=== PATIENT | female | born 1960 | race Caucasian/White ===

== ENCOUNTER 2022-03-30 12:43 | Outpatient (CLI) | payer BC, SELFPAY ==
--- NOTE | 2022-03-30 13:00 | CRLHL7_ITS ---
For Patients: As a result of the Century Cures Act, medical imaging exams and procedure reports are released immediately into your electronic medical record. You may view this report before your referring provider. If you have questions, please contact your health care provider. Indication: Cough Technique: Noncontrast CT chest Please note that all CT scans at this facility use dose modulation, iterative reconstruction, and/or weight-based dosing when appropriate to reduce radiation dose to as low as reasonably achievable. Comparison: None Findings: No infiltrate or edema. No suspicious nodule or pneumothorax. Mild areas of atelectasis at both lung bases. No pleural effusion or pericardial effusion. No small airway disease. No fibrosis. No adenopathy. No fracture. Gallbladder absent. Mild hepatic steatosis. Small hiatal hernia. Mild vascular calcifications. Thoracic inlet normal. Normal breast tissue. No fracture. Sclerosis involving the anterior T11 vertebral body consistent with bone island. Impression: No evidence of small airway disease or fibrosis. Please note that all CT scans at this facility use dose modulation, iterative reconstruction, and/or weight-based dosing when appropriate to reduce radiation dose to as low as reasonably achievable. Dictated by Christopher Lackey MD @ 03/30/2022 1:15:12 PM (Electronically Signed)
== END 2022-03-30 12:44 | disposition home or self-care (01) ==
PROVIDERS: PCP Family Medicine; Visit Provider Internal Medicine
DX: R05.9 Cough, unspecified (principal)
CPT/HCPCS: 71250

== ENCOUNTER 2022-04-27 14:11 | Outpatient (CLI) | payer BC, SELFPAY ==
[2022-04-27 22:09] LABS: Albumin* 4.7 g/dL (3.3-5.0); Chloride* 97 mmol/L (96-114); Potassium* 3.9 mmol/L (3.6-5.1); Sodium* 137 mmol/L (135-149)
[2022-04-27 22:11] LABS: Cholesterol* 175 mg/dL (90-199); Creatinine* 0.7 mg/dL (0.5-1.5); Estimated Glomerular Filt Rate 98 ml/min
[2022-04-27 22:12] LABS: Alanine Aminotransferase* 31 U/L (4-35); Alkaline Phosphatase* 91 U/L (40-150); Aspartate Amino Transferase* 34 U/L (12-35); Bilirubin Total* 0.5 mg/dL (0.1-1.5); Blood Urea Nitrogen* 17 mg/dL (7-30); Carbon Dioxide* 30 mmol/L (20-32); Glucose* 148 mg/dL (60-115); Total Protein* 7.2 g/dL (6.0-8.3); Triglycerides* 201 mg/dL (40-149)
[2022-04-27 22:13] LABS: Calcium* 10.7 mg/dL (8.4-10.6); HDL Cholesterol* 53 mg/dL (>=50); LDL Cholesterol Calculated 82 mg/dL (<100)
[2022-04-27 22:28] LABS: Vitamin D 25 Hydroxy* 15 ng/mL (30-80)
[2022-04-27 22:59] LABS: Hepatitis C Virus Antibody* Negative (Negative)
== END 2022-04-27 14:12 | disposition home or self-care (01) ==
PROVIDERS: PCP Family Medicine; Visit Provider Family Medicine
DX: Q18.8 Other specified congenital malformations of face and neck (principal); R53.83 Other fatigue; Z11.59 Encounter for screening for other viral diseases; I10 Essential (primary) hypertension; E55.9 Vitamin D deficiency, unspecified; Z13.6 Encounter for screening for cardiovascular disorders
CPT/HCPCS: 80053; 80061; 82306; 84443; 86803

== ENCOUNTER 2022-06-25 22:05 | Emergency (ER) | payer BC, SELFPAY ==
[2022-06-25 22:16] VITALS: BP 184/84; PULSE 68; RESP 18; TEMP 36.7; O2SAT 99; BMI 35.4
--- NOTE | 2022-06-25 22:36 | ED_ITS ---
HPI - General Adult General Date Seen: 06/25/22 <Shayna Cornejo MD - Last Filed: 06/28/22 11:20> Chief complaint: Chest Pain <Shayna Cornejo MD - Last Filed: 06/28/22 11:20> Stated complaint: Chest pain <Shayna Cornejo MD - Last Filed: 06/28/22 11:20> Time Seen by Provider: 06/25/22 22:16 <Shayna Cornejo MD - Last Filed: 06/28/22 11:20> Source: patient, family and RN notes reviewed <Shayna Cornejo MD - Last Filed: 06/28/22 11:20> Mode of arrival: ambulatory <Shayna Cornejo MD - Last Filed: 06/28/22 11:20> Limitations: no limitations <Shayna Cornejo MD - Last Filed: 06/28/22 11:20> History of Present Illness HPI narrative: Patient is a 62-year-old woman who comes in for evaluation of chest pain. She says that a few weeks ago she had a couple of episodes of left-sided chest pain which she felt were fairly minor and self limited. Tonight, after dinner, she had an episode of pain which was more intense and radiated into the left arm. She describes it as sharp and moderate to severe in intensity. It was not pleuritic. It lasted about an hour and then resolved on its own. She does note that she had a couple of brief episodes of pain after arriving here which only lasted a minute or 2. She does not describe any nausea, vomiting, diaphoresis, palpitations, lightheadedness or fainting. She does not feel that the pain has been positional or exertional. She has not had any abdominal pain. Denies any unusual leg swelling or pain. She has not had any fever or cough. No recent upper respiratory illness. Had COVID in July of 2020. Her notes that she has a history of hypertension, and that when the pain started to radiate into the left arm they became concerned. She and her quit smoking last year when they got COVID. She does not drink with any frequency. Her mother had cardiomyopathy, dad had CHF. She denies early coronary artery disease in either, as far she is aware, although she notes that they ?kept that stuff away from her?. <Shayna Cornejo MD - Last Filed: 06/28/22 11:20> Related Data Home medications: Home Medications Medication Instructions Recorded Confirmed acetaminophen 325 mg tablet 650 mg PO Q4H PRN 01/27/22 06/25/22 fluoxetine 20 mg tablet 60 mg PO DAILY 01/27/22 06/25/22 omeprazole 40 mg capsule,delayed 40 mg PO DAILY 01/27/22 06/25/22 release rosuvastatin 10 mg tablet 10 mg PO .Bedtime 01/27/22 06/25/22 coenzyme Q10 30 mg capsule (Co 30 mg PO QDAY 01/29/22 06/25/22 Q-10) ibuprofen 200 mg capsule 800 mg PO .hs PRN 01/29/22 06/25/22 multivitamin 1 tab PO QAM 01/29/22 06/25/22 albuterol sulfate 90 mcg/actuation 2 inh inhalation Q4-6H PRN 04/27/22 06/25/22 aerosol inhaler fluticasone furoate 200 1 inh inhalation DAILY 06/25/22 06/25/22 mcg-vilanterol 25 mcg/dose inhalation powder Previous Rx's Medication Instructions Recorded albuterol sulfate 2.5 mg/3 mL 2.5 mg (3 mL) inhalation Q4H PRN 04/27/22 (0.083 %) solution for nebulization shortness of breath or wheezing #90 mL bupropion HCl 150 mg 24 hr tablet, 150 mg PO QAM #30 tabs 04/27/22 extended release (Wellbutrin XL) lisinopril 20 mg tablet 20 mg PO QDAY #30 tabs 04/27/22 cholecalciferol (vitamin D3) 1,250 1,250 mcg PO QWEEK #12 caps 04/28/22 mcg (50,000 unit) capsule <Shayna Cornejo MD - Last Filed: 06/28/22 11:20> Allergies/adverse reactions: Allergies Allergy/AdvReac Type Severity Reaction Status Date / Time azithromycin Allergy Intermediate Light Verified 06/25/22 23:58 Headed hydromorphone Allergy Intermediate Itchy Verified 06/25/22 23:58 lactose Allergy Intermediate Diarrhea Verified 06/25/22 23:58 zolpidem Allergy Intermediate Fatigue & Verified 06/25/22 23:58 Vertigo Cephalosporins Allergy Mild Nausea/Vomi Verified 06/25/22 23:58 ting codeine Allergy Mild N-V Verified 06/25/22 23:58 penicillin V Allergy Mild Hives Verified 06/25/22 23:58 nitrofurantoin Allergy Unknown itchy? Verified 06/25/22 23:58 atorvastatin AdvReac Mild myalgia Verified 06/25/22 23:58 <Shayna Cornejo MD - Last Filed: 06/28/22 11:20> Review of Systems Status of ROS: Reports: 10 or more systems reviewed and unremarkable except as noted in History and below <Shayna Cornejo MD - Last Filed: 06/28/22 11:20> [facility] Medical History: Medical History (Updated 06/26/22 @ 00:39 by Shayna Cornejo MD) Anxiety COPD (chronic obstructive pulmonary disease) GERD (gastroesophageal reflux disease) History of open sigmoidectomy (08/23/12) Hypertension Mild intermittent asthma (07/24/11) CLAUDIA (obstructive sleep apnea) Osteoarthritis 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) <Shayna Cornejo MD - Last Filed: 06/28/22 11:20> Surgical History: Surgical History H/O laparoscopy (03/10/12) History of carpal tunnel surgery (~1989) History of hysterectomy (05/20/06) History of laparoscopic cholecystectomy (03/10/12) Status post appendectomy (~02/2012) Status post tonsillectomy <Shayna Cornejo MD - Last Filed: 06/28/22 11:20> Family History: Family History Brother Aneurysm Lung cancer Maternal Grandmother Colorectal cancer Father CHF (congestive heart failure) Coronary artery disease Diabetes Mother Coronary artery disease Stroke Depression Diabetes High blood pressure Rheumatic fever <Shayna Cornejo MD - Last Filed: 06/28/22 11:20> Social History: Social History Narrative: Does not drink alcohol Does not use illicit drugs Smoker- 0.5 packs per day Smoking Status: Former smoker Do you use any of these nicotine containing products: None Second hand tobacco smoke exposure: Yes How often do you have a drink containing alcohol: monthly or less AUDIT-C Alcohol total score: 1 Non-prescribed substance use: denies use <Shayna Cornejo MD - Last Filed: 06/28/22 11:20> Exam Narrative: Exam Narrative: Vital signs as noted above. In general, an alert, well-appearing patient. Head: Normocephalic, atraumatic. Eyes: Pupils are equal reactive. Extraocular movements are full. Conjunctivae are normal. ENT: Mucous membranes are moist. Throat is normal. Neck: Supple without lymphadenopathy. Heart: Regular rate and rhythm. No murmur or rub. Chest wall is nontender. Lungs: Clear bilaterally. No increased work of breathing, crackles or wheezes. Abdomen: Soft and nontender. No organomegaly. Extremities: Well perfused. No edema. No calf tenderness. Pulses intact. Neurologic: Patient is alert and oriented to person and place. Speech is fluent. Face is symmetric. Moves all extremities equally. Affect: Normal. Skin: Warm and dry. Well perfused. <Shayna Cornejo MD - Last Filed: 06/28/22 11:20> Const: Vital Signs, click to edit/add: Vital Signs - 24 hr 06/25/22 22:16 06/25/22 22:53 06/25/22 23:01 Temperature 98.0 F Pulse Rate 62 Pulse Rate [Right Pulse Oximeter] 68 Respiratory Rate 18 18 Blood Pressure 138/72 Blood Pressure [Ri ght Upper Arm] 184/84 H Pulse Oximetry 99 98 95 Oxygen Delivery Me thod Room Air 06/25/22 23:31 06/25/22 23:59 06/26/22 00:01 Temperature Pulse Rate 56 L 60 60 Pulse Rate [Right Pulse Oximeter] Respiratory Rate 18 18 18 Blood Pressure 142/74 H 155/84 H 149/93 H Blood Pressure [Ri ght Upper Arm] Pulse Oximetry 95 92 93 Oxygen Delivery Me thod 06/26/22 00:34 Temperature Pulse Rate 61 Pulse Rate [Right Pulse Oximeter] Respiratory Rate 16 Blood Pressure 152/78 H Blood Pressure [Ri ght Upper Arm] Pulse Oximetry 94 Oxygen Delivery Me thod <Shayna Cornejo MD - Last Filed: 06/28/22 11:20> Vital Signs, click to edit/add: Vital Signs - 24 hr 06/25/22 22:16 06/25/22 22:53 06/25/22 23:01 Temperature 98.0 F Pulse Rate 62 Pulse Rate [Right Pulse Oximeter] 68 Respiratory Rate 18 18 Blood Pressure 138/72 Blood Pressure [Ri ght Upper Arm] 184/84 H Pulse Oximetry 99 98 95 Oxygen Delivery Me thod Room Air 06/25/22 23:31 06/25/22 23:59 06/26/22 00:01 Temperature Pulse Rate 56 L 60 60 Pulse Rate [Right Pulse Oximeter] Respiratory Rate 18 18 18 Blood Pressure 142/74 H 155/84 H 149/93 H Blood Pressure [Ri ght Upper Arm] Pulse Oximetry 95 92 93 Oxygen Delivery Me thod 06/26/22 00:34 Temperature Pulse Rate 61 Pulse Rate [Right Pulse Oximeter] Respiratory Rate 16 Blood Pressure 152/78 H Blood Pressure [Ri ght Upper Arm] Pulse Oximetry 94 Oxygen Delivery Me thod <Robby Banerjee MD - Last Filed: 06/26/22 01:21> Documenting provider has reviewed patient's vital signs: yes <Shayna Cornejo MD - Last Filed: 06/28/22 11:20> Course Course Hospital Course: On arrival, patient had an EKG. There is a fair amount of baseline artifact but by my review this shows a sinus bradycardia, ventricular rate of 59 beats per minute, and no acute ST segment changes. T-waves laterally are a bit hard to discern but maybe biphasic. Following my initial evaluation, I have ordered cardiac monitoring and oximetry, initial troponin as well as other labs. I am waiting on a D-dimer prior to deciding on chest imaging. Overall, symptoms are a little atypical for angina, given that they have not followed any kind of exertional pattern. Nonetheless, she is 62, has a history of hypertension and high cholesterol. Have discussed that with serial troponins we can rule out acute coronary syndrome, but further testing would be needed to rule out coronary artery disease as a contributor to her symptoms. Assuming her parents did not have early coronary artery disease, her heart score is 2, placing her in the low risk category. I would characterize her history as slightly suspicious. Other considerations would include pulmonary embolism, chest wall pain, gastroesophageal reflux, esophageal spasm, pneumothorax, aortic dissection, pneumonia, among others. <Shayna Cornejo MD - Last Filed: 06/28/22 11:20> Reevaluation(s) Reevaluation #1: Repeat troponin is negative, patient remains pain-free and is stable for discharge. <Robby Banerjee MD - Last Filed: 06/26/22 01:21> Time: 01:20 <Robby Banerjee MD - Last Filed: 06/26/22 01:21> Vital Signs Vital signs: Initial Vital Signs Temperature 98.0 F 06/25/22 22:16 Temperature Source Temporal Artery Scan 06/25/22 22:16 Pulse Rate 68 06/25/22 22:16 Respiratory Rate 18 06/25/22 22:16 Blood Pressure 184/84 H 06/25/22 22:16 Blood Pressure Mean 117 06/25/22 22:16 Blood Pressure Position Sitting 06/25/22 22:16 Pulse Oximetry 99 06/25/22 22:16 Oxygen Delivery Method 06/25/22 22:16 Vital Signs Temperature 98.0 F 06/25/22 22:16 Pulse Rate 68 06/25/22 22:16 Respiratory Rate 18 06/25/22 22:16 Blood Pressure 184/84 H 06/25/22 22:16 Pulse Oximetry 99 06/25/22 22:16 Oxygen Delivery Method 06/25/22 22:16 Temperature 98.0 F 06/26/22 01:26 Pulse Rate 68 06/26/22 01:26 Respiratory Rate 18 06/26/22 01:26 Blood Pressure 184/84 H 06/26/22 01:26 Pulse Oximetry 94 06/26/22 01:05 Oxygen Delivery Method 06/25/22 22:16 <Shayna Cornejo MD - Last Filed: 06/28/22 11:20> Initial Vital Signs Temperature 98.0 F 06/25/22 22:16 Temperature Source Temporal Artery Scan 06/25/22 22:16 Pulse Rate 68 06/25/22 22:16 Respiratory Rate 18 06/25/22 22:16 Blood Pressure 184/84 H 06/25/22 22:16 Blood Pressure Mean 117 06/25/22 22:16 Blood Pressure Position Sitting 06/25/22 22:16 Pulse Oximetry 99 06/25/22 22:16 Oxygen Delivery Method 06/25/22 22:16 Vital Signs Temperature 98.0 F 06/25/22 22:16 Pulse Rate 68 06/25/22 22:16 Respiratory Rate 18 06/25/22 22:16 Blood Pressure 184/84 H 06/25/22 22:16 Pulse Oximetry 99 06/25/22 22:16 Oxygen Delivery Method 06/25/22 22:16 Temperature 98.0 F 06/26/22 01:26 Pulse Rate 68 06/26/22 01:26 Respiratory Rate 18 06/26/22 01:26 Blood Pressure 184/84 H 06/26/22 01:26 Pulse Oximetry 94 06/26/22 01:05 Oxygen Delivery Method 06/25/22 22:16 <Robby Banerjee MD - Last Filed: 06/26/22 01:21> Medical Decision Making Lab Data Labs: Lab Results 06/25/22 06/25/22 06/25/22 Range/Units 23:00 23:00 23:00 WBC 6.59 (4.50-11.00) K/uL RBC 4.52 (4.00-5.20) m/uL Hgb 13.1 (12.0-16.0) gm/dL Hct 40.6 (33.0-51.0) % MCV 90 (80-100) fL MCH 29 (26-34) pg MCHC 32 (32-36) gm/dL RDW Coeff of Alee 13.5 (11.5-15.5) % Plt Count 284 (140-440) K/uL Neut % (Auto) 48.3 (42.0-72.0) % Lymph % (Auto) 38.1 (20-44) % Morrison % (Auto) 10.0 (0.0-11.0) % Eos % (Auto) 3.0 (0.0-7.0) % Baso % (Auto) 0.3 (0.0-3.0) % Neut # (Auto) 3.18 (1.7-7.0) K/uL Lymph # (Auto) 2.51 (0.90-2.90) K/uL Morrison # (Auto) 0.70 (0.00-0.90) K/UL Eos # (Auto) 0.20 (0.00-0.50) K/uL Baso # (Auto) 0.02 (0.00-0.30) K/uL D-Dimer Quant (PE/DVT) 0.43 (0.00-0.50) ug/ml Sodium 137 (135-149) mmol/L Potassium 3.9 (3.6-5.1) mmol/L Chloride 103 (96-114) mmol/L Carbon Dioxide 29 (20-32) mmol/L BUN 16 (7-30) mg/dL Creatinine 0.6 (0.5-1.5) mg/dL Estimated Creat Clear 57.45 Estimated GFR 102 ml/min Glucose 124 H (60-115) mg/dL Calcium 9.2 (8.4-10.6) mg/dL C-Reactive Protein < 0.5 L (0.5-1.0) mg/dL NT-Pro-B Natriuret Pep 96 pg/mL POC Troponin I (0.01-0.04) ng/ml 06/25/22 06/26/22 Range/Units 23:00 01:00 WBC (4.50-11.00) K/uL RBC (4.00-5.20) m/uL Hgb (12.0-16.0) gm/dL Hct (33.0-51.0) % MCV (80-100) fL MCH (26-34) pg MCHC (32-36) gm/dL RDW Coeff of Alee (11.5-15.5) % Plt Count (140-440) K/uL Neut % (Auto) (42.0-72.0) % Lymph % (Auto) (20-44) % Morrison % (Auto) (0.0-11.0) % Eos % (Auto) (0.0-7.0) % Baso % (Auto) (0.0-3.0) % Neut # (Auto) (1.7-7.0) K/uL Lymph # (Auto) (0.90-2.90) K/uL Morrison # (Auto) (0.00-0.90) K/UL Eos # (Auto) (0.00-0.50) K/uL Baso # (Auto) (0.00-0.30) K/uL D-Dimer Quant (PE/DVT) (0.00-0.50) ug/ml Sodium (135-149) mmol/L Potassium (3.6-5.1) mmol/L Chloride (96-114) mmol/L Carbon Dioxide (20-32) mmol/L BUN (7-30) mg/dL Creatinine (0.5-1.5) mg/dL Estimated Creat Clear Estimated GFR ml/min Glucose (60-115) mg/dL Calcium (8.4-10.6) mg/dL C-Reactive Protein (0.5-1.0) mg/dL NT-Pro-B Natriuret Pep pg/mL POC Troponin I 0.00 L 0.00 L (0.01-0.04) ng/ml <Shayna Cornejo MD - Last Filed: 06/28/22 11:20> Lab Results 06/25/22 06/25/22 06/25/22 Range/Units 23:00 23:00 23:00 WBC 6.59 (4.50-11.00) K/uL RBC 4.52 (4.00-5.20) m/uL Hgb 13.1 (12.0-16.0) gm/dL Hct 40.6 (33.0-51.0) % MCV 90 (80-100) fL MCH 29 (26-34) pg MCHC 32 (32-36) gm/dL RDW Coeff of Alee 13.5 (11.5-15.5) % Plt Count 284 (140-440) K/uL Neut % (Auto) 48.3 (42.0-72.0) % Lymph % (Auto) 38.1 (20-44) % Morrison % (Auto) 10.0 (0.0-11.0) % Eos % (Auto) 3.0 (0.0-7.0) % Baso % (Auto) 0.3 (0.0-3.0) % Neut # (Auto) 3.18 (1.7-7.0) K/uL Lymph # (Auto) 2.51 (0.90-2.90) K/uL Morrison # (Auto) 0.70 (0.00-0.90) K/UL Eos # (Auto) 0.20 (0.00-0.50) K/uL Baso # (Auto) 0.02 (0.00-0.30) K/uL D-Dimer Quant (PE/DVT) 0.43 (0.00-0.50) ug/ml Sodium 137 (135-149) mmol/L Potassium 3.9 (3.6-5.1) mmol/L Chloride 103 (96-114) mmol/L Carbon Dioxide 29 (20-32) mmol/L BUN 16 (7-30) mg/dL Creatinine 0.6 (0.5-1.5) mg/dL Estimated Creat Clear 57.45 Estimated GFR 102 ml/min Glucose 124 H (60-115) mg/dL Calcium 9.2 (8.4-10.6) mg/dL C-Reactive Protein < 0.5 L (0.5-1.0) mg/dL NT-Pro-B Natriuret Pep 96 pg/mL POC Troponin I (0.01-0.04) ng/ml 06/25/22 06/26/22 Range/Units 23:00 01:00 WBC (4.50-11.00) K/uL RBC (4.00-5.20) m/uL Hgb (12.0-16.0) gm/dL Hct (33.0-51.0) % MCV (80-100) fL MCH (26-34) pg MCHC (32-36) gm/dL RDW Coeff of Alee (11.5-15.5) % Plt Count (140-440) K/uL Neut % (Auto) (42.0-72.0) % Lymph % (Auto) (20-44) % Morrison % (Auto) (0.0-11.0) % Eos % (Auto) (0.0-7.0) % Baso % (Auto) (0.0-3.0) % Neut # (Auto) (1.7-7.0) K/uL Lymph # (Auto) (0.90-2.90) K/uL Morrison # (Auto) (0.00-0.90) K/UL Eos # (Auto) (0.00-0.50) K/uL Baso # (Auto) (0.00-0.30) K/uL D-Dimer Quant (PE/DVT) (0.00-0.50) ug/ml Sodium (135-149) mmol/L Potassium (3.6-5.1) mmol/L Chloride (96-114) mmol/L Carbon Dioxide (20-32) mmol/L BUN (7-30) mg/dL Creatinine (0.5-1.5) mg/dL Estimated Creat Clear Estimated GFR ml/min Glucose (60-115) mg/dL Calcium (8.4-10.6) mg/dL C-Reactive Protein (0.5-1.0) mg/dL NT-Pro-B Natriuret Pep pg/mL POC Troponin I 0.00 L 0.00 L (0.01-0.04) ng/ml <Robby Banerjee MD - Last Filed: 06/26/22 01:21> Discharge Plan Discharge Clinical Impression: Chest pain <Shayna Cornejo MD - Last Filed: 06/28/22 11:20> Patient Disposition: Home, Self-Care <Shayna Cornejo MD - Last Filed: 06/28/22 11:20> Condition: Stable <Shayna Cornejo MD - Last Filed: 06/28/22 11:20> Instructions: Chest Pain (DC) <Shayna Cornejo MD - Last Filed: 06/28/22 11:20> Additional Instructions: All of the test that we talked about, including troponin, D-dimer, chest x-ray, are reassuring tonight. There is no evidence of heart attack or blood clot. I would recommend follow-up next week with your primary doctor to discuss further testing such as a stress test. If in the meantime you have severe, uncontrolled pain, significant shortness of breath, new symptoms such as fever they return to the emergency department. Avoid strenuous activity in the meantime. <Shayna Cornejo MD - Last Filed: 06/28/22 11:20> Prescriptions: No Action albuterol sulfate 2.5 mg /3 mL (0.083 %) solution for nebulization 2.5 mg inhalation Q4H PRN (Reason: shortness of breath or wheezing) Qty: 90 2RF bupropion HCl [Wellbutrin XL] 150 mg tablet extended release 24 hr 150 mg PO QAM Qty: 30 12RF lisinopril 20 mg tablet 20 mg PO QDAY Qty: 30 12RF acetaminophen 325 mg tablet 650 mg PO Q4H PRN Rx Instructions: NO MORE THAN 4000 MG/DAY rosuvastatin 10 mg tablet 10 mg PO .Bedtime fluoxetine 20 mg tablet 60 mg PO DAILY omeprazole 40 mg capsule,delayed release(DR/EC) 40 mg PO DAILY coenzyme Q10 [Co Q-10] 30 mg capsule 30 mg PO QDAY multivitamin Tablet 1 tab PO QAM ibuprofen 200 mg capsule 800 mg PO .hs PRN albuterol sulfate 90 mcg/actuation HFA aerosol inhaler 2 inh inhalation Q4-6H PRN fluticasone furoate-vilanterol 200-25 mcg/dose blister with device 1 inh INHALATION DAILY Label Comments: INHALE ONE PUFF ONCE DAILY AT THE SAME TIME EACH DAY cholecalciferol (vitamin D3) 1,250 mcg (50,000 unit) capsule 1,250 mcg PO QWEEK Qty: 12 0RF <Shayna Cornejo MD - Last Filed: 06/28/22 11:20> Follow Up/Referrals: Coby Dobbins MD [Primary Care Provider] - <Shayna Cornejo MD - Last Filed: 06/28/22 11:20> Stand Alone Forms: [place] [employer] Info Instructions <Shayna Cornejo MD - Last Filed: 06/28/22 11:20>
[2022-06-25 22:53] VITALS: O2SAT 98
[2022-06-25 23:01] VITALS: BP 138/72; PULSE 62; RESP 18; O2SAT 95
[2022-06-25 23:08] LABS: Basophils Absolute Auto 0.02 K/uL (0.00-0.30); Basophils Percent Auto 0.3 % (0.0-3.0); Hematocrit 40.6 % (33.0-51.0); Hemoglobin* 13.1 gm/dL (12.0-16.0); Immature Granulocytes Abs Auto 0.02 K/uL (0.00-0.30); Immature Granulocytes Pct Auto 0.3 %; Lymphocytes Absolute Auto 2.51 K/uL (0.90-2.90); Lymphocytes Percent Auto 38.1 % (20-44); Mean Corpuscular HGB Conc 32 gm/dL (32-36); Mean Corpuscular Hemoglobin 29 pg (26-34); Mean Corpuscular Volume 90 fL (80-100); Neutrophils Absolute Auto 3.18 K/uL (1.7-7.0); Neutrophils Percent Auto 48.3 % (42.0-72.0); Platelet Count* 284 K/uL (140-440); RDW Coefficient of Variation % 13.5 % (11.5-15.5); Red Blood Count 4.52 m/uL (4.00-5.20); White Blood Count* 6.59 K/uL (4.50-11.00)
[2022-06-25 23:09] LABS: Slide Review Reflex No
[2022-06-25 23:20] LABS: Chloride* 103 mmol/L (96-114)
[2022-06-25 23:21] LABS: Potassium* 3.9 mmol/L (3.6-5.1); Sodium* 137 mmol/L (135-149)
[2022-06-25 23:23] LABS: Creatinine* 0.6 mg/dL (0.5-1.5); Est. Creatinine Clearance* 57.45; Estimated Glomerular Filt Rate 102 ml/min
[2022-06-25 23:24] LABS: Blood Urea Nitrogen* 16 mg/dL (7-30); Calcium* 9.2 mg/dL (8.4-10.6); Carbon Dioxide* 29 mmol/L (20-32); Glucose* 124 mg/dL (60-115)
[2022-06-25 23:29] LABS: C Reactive Protein* < 0.5 mg/dL (0.5-1.0)
[2022-06-25 23:31] VITALS: BP 142/74; PULSE 56; RESP 18; O2SAT 95
[2022-06-25 23:33] LABS: D Dimer Quantitative* 0.43 ug/ml (0.00-0.50)
[2022-06-25 23:57] LABS: NT Pro B Type NatriureticPept* 96 pg/mL
[2022-06-25 23:59] VITALS: BP 155/84; PULSE 60; RESP 18; O2SAT 92
[2022-06-26 00:01] VITALS: BP 149/93; PULSE 60; RESP 18; O2SAT 93
--- NOTE | 2022-06-26 00:21 | CRLHL7_ITS ---
For Patients: As a result of the Cures Act, medical imaging exams and procedure reports are released immediately into your electronic medical record. You may view this report before your referring provider. If you have questions, please contact your health care provider. INDICATION: Chest pain TECHNIQUE: Chest radiograph 2 views COMPARISON: 03/30/2022, 08/20/2016 FINDINGS: Mediastinum: The mediastinum is normal in appearance. The cardiac silhouette is at upper limits of normal in size. Lung: Minimal left basilar discoid atelectasis is seen. The right lateral costophrenic sulcus is excluded. No pneumothorax is identified. Bone and Soft tissue: Unremarkable for age. IMPRESSION: 1. Minimal left basilar discoid atelectasis is seen. Dictated by Orlando Vences MD @ 06/26/2022 12:41:52 AM Dictated by: Orlando Vences MD @ 06/26/2022 00:41:56 (Electronically Signed)
[2022-06-26 00:34] VITALS: BP 152/78; PULSE 61; RESP 16; O2SAT 94
[2022-06-26 01:05] VITALS: BP 142/91; PULSE 57; RESP 18; O2SAT 94
[2022-06-26 01:26] VITALS: BP 184/84; PULSE 68; RESP 18; TEMP 36.7
== END 2022-06-26 01:27 | disposition home or self-care (01) ==
PROVIDERS: Emergency Medicine; Emergency Provider Family Medicine; PCP Family Medicine
DX: R07.9 Chest pain, unspecified (principal)
CPT/HCPCS: 36415; 71046; 80048; 83880; 84484; 85025; 85379; 86140; 93005; 94761; 99284; 99285

== ENCOUNTER 2022-08-18 12:38 | Outpatient (CLI) | payer BC, SELFPAY ==
[2022-08-18 14:06] VITALS: BP 147/77; PULSE 98; RESP 18
[2022-08-18] MEDS: DOBUTamine 250 MG in 5 % DEXTROSE 250 ML 230 ML 10 MG IVPB (14:10)
[2022-08-18] MEDS: ATROPINE 1 MG/10 ML SYRINGE IVP (14:12)
--- NOTE | 2022-08-18 14:29 | W.PM.STED ---
Stress Test Note Date Date of test: 08/18/22 Providers Primary care provider: Shayna Feliciano Stress test physician: Uri Goins Stress Test Note Stress test ordered: Dobutamine Echo Indication for test: Chest pain Stress test medicine: Dobutamine Results discussion: Here 62-year-old female presents here for a dobutamine echo, indication is chest pain, cardiac stress test medical history port is reviewed, informed consent risks benefits side effects we discussed with the patient, pretest EKG shows normal sinus rhythm with a heart rate of 63 and a BP of 153 on 87[address] No acute ST wave changes are noted. Occasional PVCs. Standard up protocol using dobutamine and atropine was use, dobutamine was used up to a maximum of 40 mcg, and atropine 0.5 mg was used, this resulted in a good test, with target heart rate and blood pressure obtain. Overall she felt no chest pain no shortness of breath, she recovered normally in the recovery period, her maximum heart rate was 142, which is 105% of the target, with a maximum blood pressure 177/68, no acute ST wave changes suggestive of ischemia is noted, there is no dysrhythmias increased frequency of PVCs was noted. Impression: Negative electrographic portion of dobutamine echo Follow up suggested: Await echo images these will be read by Cardiology, clinical correlation with these will be needed, patient left this testing facility in excellent condition.
== END 2022-08-18 14:13 | disposition home or self-care (01) ==
LOC: STRESS 12:39
PROVIDERS: PCP Family Medicine; Visit Provider Family Medicine
DX: R07.9 Chest pain, unspecified (principal); I10 Essential (primary) hypertension; E78.5 Hyperlipidemia, unspecified; R73.03 Prediabetes
CPT/HCPCS: 93016; 93325; 93351; J0461; J1250; J7050

== ENCOUNTER 2023-07-17 14:26 | Emergency (ER) | payer BC, SELFPAY ==
[2023-07-17 14:32] VITALS: BP 161/84; PULSE 60; RESP 18; TEMP 36.8; O2SAT 95
--- NOTE | 2023-07-17 14:57 | ED.GENADULT ---
HPI - General Adult General Chief complaint: Headache/Migraine Stated complaint: Pain and swelling back of neck-cyst or gland Time Seen by Provider: 07/17/23 14:34 History of Present Illness HPI narrative: [age] year white female presents with some tenderness behind her right ear she really has not noticed a mass but she thinks that might be causing some her to have a mild headache in that area. She has no fever chills no systemic signs of illness no trauma. Said some neck stiffness in the past. Related Data Home Medications Medication Instructions Recorded Confirmed acetaminophen 325 mg tablet 650 mg PO Q4H PRN 01/27/22 07/17/23 coenzyme Q10 30 mg capsule (Co 30 mg PO QDAY 01/29/22 07/17/23 Q-10) ibuprofen 200 mg capsule 800 mg PO .hs PRN 01/29/22 05/11/23 multivitamin 1 tab PO QAM 01/29/22 07/17/23 fluticasone furoate 200 1 inh inhalation DAILY 06/25/22 07/17/23 mcg-vilanterol 25 mcg/dose inhalation powder aspirin 81 mg tablet,delayed 81 mg PO QDAY 05/11/23 07/17/23 release melatonin 3 mg capsule 15 mg PO QHS 05/11/23 07/17/23 fluoxetine 10 mg capsule 20 mg PO QDAY 07/17/23 07/17/23 Previous Rx's Medication Instructions Recorded omeprazole 40 mg capsule,delayed 40 mg PO DAILY #90 caps 11/02/22 release albuterol sulfate 2.5 mg/3 mL 2.5 mg (3 mL) inhalation Q4H PRN 04/26/23 (0.083 %) solution for nebulization shortness of breath or wheezing #90 mL albuterol sulfate 90 mcg/actuation 2 inh inhalation Q4-6H PRN 05/11/23 aerosol inhaler bronchospasm #8.5 grams bupropion HCl 300 mg 24 hr tablet, 300 mg PO QAM #90 tabs 05/11/23 extended release (Wellbutrin XL) fluoxetine 40 mg capsule 40 mg PO QAM #90 caps 05/11/23 lisinopril 20 mg tablet 20 mg PO QDAY #30 tabs 05/31/23 rosuvastatin 10 mg tablet 10 mg PO QHS #90 tabs 07/13/23 Allergies Allergy/AdvReac Type Severity Reaction Status Date / Time azithromycin Allergy Intermediate Light Verified 07/17/23 14:34 Headed hydromorphone Allergy Intermediate Itchy Verified 07/17/23 14:34 lactose Allergy Intermediate Diarrhea Verified 07/17/23 14:34 zolpidem Allergy Intermediate Fatigue & Verified 07/17/23 14:34 Vertigo Cephalosporins Allergy Mild Nausea/Vomi Verified 07/17/23 14:34 ting codeine Allergy Mild N-V Verified 07/17/23 14:34 penicillin V Allergy Mild Hives Verified 07/17/23 14:34 nitrofurantoin Allergy Unknown itchy? Verified 07/17/23 14:34 atorvastatin AdvReac Mild myalgia Verified 07/17/23 14:34 Review of Systems Status of ROS: Reports: 6 or more systems reviewed and unremarkable except as noted in History and below PFSH [facility] Medical History CLAUDIA (obstructive sleep apnea) ?G47.33 - Obstructive sleep apnea (adult) (pediatric) (ICD-10) COPD (chronic obstructive pulmonary disease) ?J44.9 - Chronic obstructive pulmonary disease, unspecified (ICD-10) Anxiety ?F41.9 - Anxiety disorder, unspecified (ICD-10) Hypertension ?I10 - Essential (primary) hypertension (ICD-10) Osteoarthritis ?M19.90 - Unspecified osteoarthritis, unspecified site (ICD-10) GERD (gastroesophageal reflux disease) ?K21.9 - Gastro-esophageal reflux disease without esophagitis (ICD-10) History of open sigmoidectomy (08/23/12) ?Z98.890 - Other specified postprocedural states (ICD-10) ?Z90.49 - Acquired absence of other specified parts of digestive tract (ICD-10) 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 (ICD-10) Mild intermittent asthma (07/24/11) ?J45.20 - Mild intermittent asthma, uncomplicated (ICD-10) Surgical History H/O laparoscopy (03/10/12) ?Z98.890 - Other specified postprocedural states (ICD-10) Status post tonsillectomy ?Z90.89 - Acquired absence of other organs (ICD-10) Status post appendectomy (~02/2012) ?Z90.49 - Acquired absence of other specified parts of digestive tract (ICD-10) History of laparoscopic cholecystectomy (03/10/12) ?Z90.49 - Acquired absence of other specified parts of digestive tract (ICD-10) History of hysterectomy (05/20/06) ?Z90.710 - Acquired absence of both cervix and uterus (ICD-10) History of carpal tunnel surgery (~1989) ?Z98.890 - Other specified postprocedural states (ICD-10) Family History Brother Aneurysm Lung cancer Maternal Grandmother Colorectal cancer Father CHF (congestive heart failure) Coronary artery disease Diabetes Mother Coronary artery disease Stroke Depression Diabetes High blood pressure Rheumatic fever Social History Narrative: Does not drink alcohol Does not use illicit drugs Smoker- 0.5 packs per day Smoking Status: Former smoker Do you use any of these nicotine containing products: None Second hand tobacco smoke exposure: Yes How often do you have a drink containing alcohol: monthly or less AUDIT-C Alcohol total score: 1 Non-prescribed substance use: denies use Little interest or pleasure in doing things: more than half the days Feeling down, depressed, or hopeless: not at all Exam Narrative: Exam Narrative: Objective patient is afebrile she has got no palpable marked adenopathy or any abscess behind her right ear her ear exam bilaterally is unremarkable throat is clear able open her jaw fully I do not detect any mass or cellulitis inner retroauricular area she certainly could have a small node that is irritated. Const: Vital Signs, click to edit/add: Vital Signs - 24 hr 07/17/23 14:32 Temperature 98.2 F Pulse Rate [Pulse Oximeter] 60 Respiratory Rate 18 Blood Pressure [Ri ght Upper Arm] 161/84 H Pulse Oximetry 95 Oxygen Delivery Me thod Room Air Course Vital Signs Vital signs: Initial Vital Signs Temperature 98.2 F 07/17/23 14:32 Temperature Source Temporal Artery Scan 07/17/23 14:32 Pulse Rate 60 07/17/23 14:32 Respiratory Rate 18 07/17/23 14:32 Blood Pressure 161/84 H 07/17/23 14:32 Blood Pressure Mean 109 H 07/17/23 14:32 Blood Pressure Position Sitting 07/17/23 14:32 Pulse Oximetry 95 07/17/23 14:32 Oxygen Delivery Method Room Air 07/17/23 14:32 Vital Signs Temperature 98.2 F 07/17/23 14:32 Pulse Rate 60 07/17/23 14:32 Respiratory Rate 18 07/17/23 14:32 Blood Pressure 161/84 H 07/17/23 14:32 Pulse Oximetry 95 07/17/23 14:32 Oxygen Delivery Method Room Air 07/17/23 14:32 Temperature 98.2 F 07/17/23 14:32 Pulse Rate 60 07/17/23 14:32 Respiratory Rate 18 07/17/23 14:32 Blood Pressure 161/84 H 07/17/23 14:32 Pulse Oximetry 95 07/17/23 14:32 Oxygen Delivery Method Room Air 07/17/23 14:32 Medical Decision Making MDM Narrative Medical decision making narrative: 63-year-old female with some posterior ear pain, no vis vesicles or other symptoms to suggest viral illness or Carpenter's palsy or abscess or cellulitis. At this point I think would recommend observation warm pack Aleve 2 twice a day over the next 5 days watch carefully if changes or concerns to return to the ED or primary care. She is comfortable this plan. Certainly this could be neck muscle stiffness as well. Discharge Plan Discharge Clinical Impression: Tenderness of neck Patient Disposition: Home, Self-Care Condition: Stable Additional Instructions: Warm pack to the neck as needed preps several times a day, Aleve 2 twice a day for the next 5-7 days. Recheck with regular doctor next few days. Activity Level: Light activity Discharge Diet: Regular Prescriptions: No Action melatonin 3 mg capsule 15 mg PO QHS Patient Comments: unsure of strength aspirin 81 mg tablet,delayed release (DR/EC) 81 mg PO QDAY fluoxetine 40 mg capsule 40 mg PO QAM Qty: 90 3RF bupropion HCl [Wellbutrin XL] 300 mg tablet extended release 24 hr 300 mg PO QAM Qty: 90 3RF albuterol sulfate 90 mcg/actuation HFA aerosol inhaler 2 inh inhalation Q4-6H PRN (Reason: bronchospasm) Qty: 8.5 3RF acetaminophen 325 mg tablet 650 mg PO Q4H PRN Rx Instructions: NO MORE THAN 4000 MG/DAY coenzyme Q10 [Co Q-10] 30 mg capsule 30 mg PO QDAY multivitamin Tablet 1 tab PO QAM ibuprofen 200 mg capsule 800 mg PO .hs PRN fluoxetine 10 mg capsule 20 mg PO QDAY fluticasone furoate-vilanterol 200-25 mcg/dose blister with device 1 inh INHALATION DAILY Patient Comments: INHALE ONE PUFF ONCE DAILY AT THE SAME TIME EACH DAY omeprazole 40 mg capsule,delayed release(DR/EC) 40 mg PO DAILY Qty: 90 2RF albuterol sulfate 2.5 mg /3 mL (0.083 %) solution for nebulization 2.5 mg inhalation Q4H PRN (Reason: shortness of breath or wheezing) Qty: 90 0RF lisinopril 20 mg tablet 20 mg PO QDAY Qty: 30 2RF rosuvastatin 10 mg tablet 10 mg PO QHS Qty: 90 0RF Follow Up/Referrals: Shayna Feliciano MD [Primary Care Provider] - Stand Alone Forms: [employer] Info Instructions
== END 2023-07-17 15:11 | disposition home or self-care (01) ==
LOC: ED 15:10
PROVIDERS: Emergency Provider Family Medicine; PCP Family Medicine
DX: M54.2 Cervicalgia (principal)
CPT/HCPCS: 99282; 99283

== ENCOUNTER 2023-07-22 07:28 | Outpatient (CLI) | payer BC, SELFPAY | END 2023-07-22 07:29 | disposition home or self-care (01) | LOC: NFLDREF 07-29 09:13 | PROVIDERS: PCP Family Medicine; Referring Provider Family Medicine; Visit Provider Family Medicine | DX: E78.2 Mixed hyperlipidemia (principal) | CPT/HCPCS: 80061 ==

== ENCOUNTER 2023-10-04 14:01 | Outpatient (CLI) | payer BC, SELFPAY | END 2023-10-04 14:02 | disposition home or self-care (01) | PROVIDERS: PCP Family Medicine; Visit Provider Family Medicine | DX: I10 Essential (primary) hypertension (principal); E55.9 Vitamin D deficiency, unspecified; R73.03 Prediabetes; E78.5 Hyperlipidemia, unspecified | CPT/HCPCS: 80053; 80061; 82043; 82306; 82570; 84439; 84443; 84480 ==

== ENCOUNTER 2023-10-11 14:37 | Outpatient (CLI) | payer BC, SELFPAY | END 2023-10-11 14:38 | disposition home or self-care (01) | LOC: NFLDREF 10-13 07:28 | PROVIDERS: PCP Family Medicine; Referring Provider Family Medicine; Visit Provider Family Medicine | DX: E11.9 Type 2 diabetes mellitus without complications (principal); B35.1 Tinea unguium; E55.9 Vitamin D deficiency, unspecified; E78.5 Hyperlipidemia, unspecified; I10 Essential (primary) hypertension | CPT/HCPCS: 82043; 82570 ==

== ENCOUNTER 2023-12-16 11:20 | Outpatient (CLI) | payer BC, SELFPAY ==
--- OUTSIDE RECORDS SUMMARY | 2023-12-16 11:22 | XMS_ITS | Encounter Summary ---
Author Organization [facility] Address [address] [place] [address]. [place] [address] Care Team Providers Care Route Sales Driver Name Role Phone Earline Herring MD Primary Care Provider Unavailsisi e Reason for Referral * Consultation (Routine) - Pending Review Specialty Diagnoses / Procedures Referred By Contangi t Referred To Contact Diagnoses Type 2 diabetes mellitus without complication (H) Onychomycosis Tinea unguium Plantar fasciitis Shayna Feliciano MD [address] [address] Referral ID Status Reason Start Date Expiration Date V isits Requested Visits Authorized [id number] Pending Review 10/11/2023 10/10/2024 1 1 Question Answer Consult Type: Foot/Ankle Type: Per Protocol Scheduling Instructions: The [facility] Orthopedic Track Repair Worker will call you to coordinate your care as prescribed by your provider. A risk control field representative will call you within 2 business days to help you schedule your appointment, or you may contact the Track Repair Worker Replenishment Specialist at: . Additional Information: Diabetic Foot Check Comments Referral to Podiatry for Newly Diagnosed Diabetes/ Plantar Fasciitis/ Onychomycosis from Dr. Shayna Feliciano MD at [facility] Ph. [phone] The [facility] Orthopedic Track Repair Worker will call you to coordinate your care as prescribed by your provider. A risk control field representative will call you within 2 business days to help you schedule your appointment, or you may contact the Track Repair Worker Replenishment Specialist at: . Encounter Details Date Type Department Care Team (Late st Contact Info) Description 10/11/2023 Transcribe Orders GENERIC EXTERNAL DATA DEPARTMENT Provider, Generic External Data Type 2 diabetes mellitus without complication (H) (Primary Dx); Onychomycosis; Tinea unguium; Plantar fasciitis Social History Tobacco Use Types Packs/Day Years Used Date Smoking Tobacco: Every Day Cigarettes 0.5 20 Alcohol Use Standard Drinks/Week Comments Yes 0 (1 standard drink = 0.6 oz pur e alcohol) occ Adolescent Education Answer Date Record ed Getting School Help Needed Not on file 04/17 Sex and Gender Information Value Date Recorded Sex Assigned at Not on file Gender Identity Not on file Sexual Orientation Not on file documented as of this encounter Plan of Treatment Upcoming Encounters Date Type Department Care Team (Late Contact Info) Description 12/31/2023 4:00 PM CDT Appointment [facility] [address] [place] [address] Shayna Feliciano MD [facility] AND [address] [address] Scheduled Referrals Name Type Priority Associated Diagnoses Orde r Schedule Orthopedic Track Repair Worker Referral Referral Routine Type 2 Diabetes Mellitus Without Complication (H) Onychomycosis Tinea unguium Plantar fasciitis Expected: 10/11/2023 (Approximate), Expires: 10/10/2024 documented as of this encounter Visit Diagnoses Diagnosis Type 2 diabetes mellitus without complication (H)- Primary Onychomycosis Dermatophytosis of nail Tinea unguium Dermatophytosis of nail Plantar fasciitis Plantar fascial fibromatosis documented in this encounter Care Teams Route Sales Driver Relationship Specialty Start Date End Date Earline Herring MD [place] [address] PCP - General 09/13/03 10/11/23 documented as of this encounter
--- OUTSIDE RECORDS SUMMARY | 2023-12-16 11:22 | XMS_ITS | Clinical Summary ---
Author Organization [facility] Address [place], [place] [address] Care Team Providers Care Attendant Arcade Name Role Phone Shayna Feliciano MD Primary Care Provider [phone] Allergies Active Allergy Reactions Criticality Noted Date Comments Azithromycin Itching Medium 08/01/2013 Cephalosporins *Unknown Unknown 08/01/2013 Clindamycin Diarrhea High 02/03/2023 Codeine GI Upset Low 08/01/2013 Erythromycin *Unknown Unknown 08/01/2013 Nitrofurantoin *Unknown Unknown 08/01/2013 Penicillins Hives Medium 08/01/2013 Medications Medication Sig Dispensed Refills Start Date End Date Status ibuprofen (ADVIL; MOTRIN) 600 mg tablet Take 1 tablet by mouth every 6 hours if needed for Pain. Maximum of 3200 mg in 24 hours. 30 tablet 0 08/01/2013 Active omeprazole (PRILOSEC) 40 mg Delayed-Release capsule Take 40 mg by mouth once daily. 11/03/2022 Active lisinopriL (PRINIVIL; ZESTRIL) 20 mg tablet 01/18/2023 Active FLUoxetine (PROZAC) 20 mg capsule TAKE THREE CAPSULES BY MOUTH EVERY DAY 12/31/2022 Active rosuvastatin (CRESTOR) 10 mg tablet Take 10 mg by mouth at bedtime. 12/30/2022 Active fluticasone furoate-vilanteroL (BREO ELLIPTA) 200mcg/25mcg inhaler INHALE ONE PUFF ONCE DAILY AT THE SAME TIME EACH DAY 12/17/2022 Active amLODIPine (NORVASC) 5 mg tablet Take 5 mg by mouth. 04/21/2022 Active buPROPion (WELLBUTRIN XL) 150 mg Extended-Release tablet TAKE ONE TABLET BY MOUTH EVERY DAY IN THE MORNING 12/14/2022 Active cholecalciferol (VITAMIN D3) 50,000 unit capsule Take 50,000 units by mouth once weekly. 07/14/2022 Active Active Problems No known active problems Social History Tobacco Use Types Packs/Day Years Used Date Smoking Tobacco: Former Cigarettes Smokeless Tobacco: Never Tobacco Cessation:Counseling Given: Not Answered Alcohol Use Standard Drinks/Week Comments Not Asked 0 (1 standard drink = 0.6 oz pur e alcohol) Social Connections Answer Date Recorded Frequency of Communication with Friends and Fami ly Not on file 05/26/2023 Sex and Gender Information Value Date Recorded Sex Assigned at Not on file Gender Identity Not on file Sexual Orientation Not on file Obstetrics History Last Filed Vital Signs Vital Sign Reading Time Taken Comments Blood Pressure 128/70 01/19/2023 3:05 PM CDT Pulse 69 01/19/2023 3:05 PM CDT Temperature 36.8 ??C (98.2 ??F) 01/19/2023 3:05 PM CD T Respiratory Rate 16 01/19/2023 3:05 PM CDT Oxygen Saturation 95% 01/19/2023 3:05 PM CDT Inhaled Oxygen Concentration - - Weight 91.6 kg (202 lb) 04/25/2014 8:10 AM CDT Height 170.2 cm (5' 7) 04/25/2014 8:10 AM CDT Body Mass Index 31.64 04/25/2014 8:10 AM CDT Plan of Treatment Health Maintenance Due Date Last Done Comments Tdap 1972 Depression screening for age 12+ 1973 HIV for age 15-65 1976 BMI (ht and wt on same day) for age 18+ 1979 Hepatitis C screening for ag e 18-79 1979 Tetanus booster 1981 Pap test for age 21-65 1982 Colonoscopy through age 75 2006 Lipids for age 45-75 2006 Mammogram for age 45-75 2006 Zoster (shingles) series for age 50+ (1 of 2) 2011 COVID-19 vaccine series ( season) 2023 10/25/2020, 09/27/2020 Influenza for age 50-64 03/12/2024 Pneumococcal series for age 6-64 Aged Out No longer eligible b ased on patient's age to complete this topic Care Teams Attendant Arcade Relationship Specialty Start Date End Date Shayna Feliciano MD PCP - General 08/18/22
--- OUTSIDE RECORDS SUMMARY | 2023-12-16 11:22 | XMS_ITS | Clinical Summary ---
Author Organization [facility] Address [address] [place] [address]. [place] [address] Care Team Providers Care Skid Machine Operator Name Role Phone Shayna Feliciano MD Primary Care Provider [phone] Luis Manzo DPM Unavailable [phone] Allergies Active Allergy Reactions Criticality Noted Date Comments Azithromycin 07/13/2003 diarrhea Cephalosporins 12/28/2002 breathing probs Hydrocodone 12/28/2002 rash Penicillins 12/28/2002 hives Medications Medication Sig Dispensed Refills Start Date End Date Status ALBUTEROL 90 MCG/ACT IN AERSIndications:Allerg ic rhinitis, cause unspecified,Unspecifie d asthma(493.90) 1-2 puffs Q 4-6 hrs prn 2 11 12/28/2002 Active EFFEXOR 75 MG OR TABSIndications:Depres sive disorder, not elsewhere classified 1 TABLET DAILY WITH FOOD 90 1 10/20/2004 Active Active Problems Problem Noted Date Diagnosed Date Mild intermittent asthma 10/26/2004 PURE HYPERCHOLESTEROLEM 10/22/2004 Depressive disorder, not elsewhere classified Allergic rhinitis 12/28/2002 Overview: Problem list name updated by automated process. Provider to review Dermatophytosis of nail 12/28/2002 Ingrowing nail 12/28/2002 Encounters Date Type Department Care Team Description 10/19/2023 9:00 AM CDT Office Visit [facility] [address] [place], [place] [id number] Luis Manzo DPM Type 2 diabetes mellitus with peripheral neuropathy (H) (Primary Dx); Onychomycosis; Tinea unguium; Plantar fasciitis 10/19/2023 Travel 10/11/2023 Medical Correspondence [facility] Info Mgmt [facility] [address] [place] [address] Scan, Non-Provider 10/11/2023 Transcribe Orders GENERIC EXTERNAL DATA DEPARTMENT Provider, Generic External Data Type 2 diabetes mellitus without complication (H) (Primary Dx); Onychomycosis; Tinea unguium; Plantar fasciitis from Last 3 Months Immunizations Name Administration Dates Next Due Mantoux Tuberculin Skin Test 05/25/2002 Family History Medical History Relation Comments Alcohol/Drug Brother 1 Alcohol/Drug Brother 2 Cancer Daughter neuroblastoma de ceased at a 21 mos C.A.D. Father chf Diabetes Father Diabetes Mother Heart Disease Mother enlarged heart d eceased Relation Status Comments Brother 1 Brother 2 Daughter Father Mother Social History Tobacco Use Types Packs/Day Years [...] on file Sexual Orientation Not on file Last Filed Vital Signs Vital Sign Reading Time Taken Comments Blood Pressure 133/80 10/19/2023 9:01 AM CDT Pulse - - Temperature 36.9 ??C (98.5 ??F) 09/27/2004 10:[address] Respiratory Rate - - Oxygen Saturation - - Inhaled Oxygen Concentration - - Weight 116 kg (255 lb 11.7 oz) 10/19/2023 9:01 A M CDT Height 170.2 cm (5' 7) 10/19/2023 9:01 AM CDT Body Mass Index 40.05 10/19/2023 9:01 AM CDT Plan of Treatment Upcoming Encounters Date Type Department Care Team (Late st Contact Info) Description 12/31/2023 4:00 PM CDT Appointment [facility] [address] [place] [address] Shayna Feliciano MD [facility] [place] [id number] Health Maintenance Due Date Last Done Comments A1C 1961 ADVANCE CARE PLANNING 1961 ANNUAL REVIEW OF HM ORDERS 1961 ASTHMA ACTION PLAN 1961 ASTHMA CONTROL TEST 1961 CT COLONOGRAPHY 1961 EYE EXAM 1961 FIT 1961 FLEX SIG 1961 MICROALBUMIN 1961 NICOTINE/TOBACCO CESSATION COUNSELING Q 1 YR 1961 sDNA (Cologuard) 1961 COLONOSCOPY 1971 COLORECTAL CANCER SCREENING 1971 HIV SCREENING 1976 HEPATITIS C SCREENING 1979 LIPID 10/20/2005 10/20/2004 YEARLY PREVENTIVE VISIT 10/20/2005 10/20/2004 MAMMO SCREENING 09/30/2006 09/30/2004 PAP 10/21/2007 10/20/2004 BMP 12/07/2008 12/08/2007, 10/11, 05/25/2006, Additional history exists LUNG CANCER SCREENING 2011 ZOSTER IMMUNIZATION (1 of 2) 2011 DTAP/TDAP/TD IMMUNIZATION (2 - Td or Tdap) 03/13/2020 03/13/2010, 07/12/1998 RSV VACCINE ( & 60+) (1 - 1-dose 60+ series) 2021 COVID-19 Vaccine (3 - 2022-24 season) 2023 10/25/2020, 09/27/2020 PHQ-2 (once per calendar year) 2023 DIABETIC FOOT EXAM 10/18/2024 10/19/2023 Pneumococcal Vaccine: Pediatrics (0 to 5 Years) and At-Risk Patients (6 to 64 Years) (3 of 3 - PPSV23 or PCV20) 2026 12/01/2017, 06/16/2016 INFLUENZA VACCINE Completed 05/11/2023, , 08/07/2020, Additional history exists HPV IMMUNIZATION Aged Out No longer e ligible based on patient's age to complete this topic IPV IMMUNIZATION Aged Out No longer e ligible based on patient's age to complete this topic MENINGITIS IMMUNIZATION Aged Out No l onger eligible based on patient's age to complete this topic RSV MONOCLONAL ANTIBODY Aged Out No l onger eligible based on patient's age to complete this topic Procedures Procedure Name Priority Date/Time Associated Diagnosis Comments BASIC METABOLIC PANEL Timed 12/08/2007 7:21 AM CDT CL AFF A.M.A. LIPID PANEL Routine 10/20/2004 11:00 AM CDT Routine Medical Exam HCL PAP THIN LAYER SCREEN Routine 10/20/2004 12:00 AM CDT Routine Medical Exam C MAMMOGRAM, BOTH BREASTS (DIAG) Routine 09/30/2004 10:48 AM EMERGENCY MEDICAL SERVICE MANAGER Pain in limb from Last 3 Months or Most Recently Relevant to Health Maintenance Results * Basic metabolic panel (12/08/2007 7:21 AM CDT) Sodium 139 133 - 144 mmol/L [facility] Potassium 3.9 3.4 - 5.3 mmol/L [facility] Chloride 103 94 - 109 mmol/L [facility] Carbon Dioxide 27 20 - 32 mmol/L [facility] Glucose 74 60 - 99 mg/dL [facility] Urea Nitrogen 13 5 - 24 mg/dL [facility] Creatinine 0.55 0.52 - 1.04 mg/dL [facility] Comment:New IDMS-traceable c alibration beginning 11/10/07 GFR Estimate >90 >60 mL/min/1.7 m2 [facility] GFR Estimate If Black >90 >60 mL/min/1.7 m2 [facility] Calcium 8.6 8.5 - 10.4 mg/dL [facility] Anion Gap 9 6 - 17 mmol/L [facility] 12/08/2007 7:21 AM CDT 12/08/2007 5:59 AM CDT [facility] - BLOOD ORDERABL ES [facility] * (ABNORMAL) A.M.A. LIPID PANEL (10/20/2004 11:00 AM CDT) Cholesterol 235(H) 0 - 200 mg/dL [facility] Comment: Cholesterol Reference Range: <200 ??The NCEP recommends further ? evaluation of: ? 1. ??Patients with cholesterol ? greater than 200 mg/dL ? if additional risk factors ? are present. ? 2. ??All patients with a ? cholesterol greater than ? 240 mg/dL. Triglycerides 126 0 - 150 mg/dL [facility] HDL Cholesterol 43 >40 mg/dL [facility] LDL Cholesterol Calculated 167(H) 0 - 129 mg/dL [facility] VLDL-Cholesterol 25 0 - 30 mg/dL [facility] Cholesterol/HDL Ratio 5.5(H) 0.0 - 5.0 [facility] 10/20/2004 11:0 0 AM CDT 10/20/2004 11:03 AM CDT Jesi Herring MD LABORATORY [facility] * A THIN LAYER PAP SCREEN (10/20/2004 12:00 AM CDT) PAP [facility] Hall Report Patient Name: NIURKA JEFFERSON MR#: [id number] Specimen #: [id number] Collected: 10/20/2004 Received: 10/21/2004 Reported: 10/22/2004 14:35 Ordering Phy(s): JESI HERRING SPECIMEN/STAIN PROCESS: Pap thin layer prep screening ? Pap-Cyto x 1, Reflex HPV x 1 SOURCE: Cervical, endocervical Pap thin layer prep screening SPECIMEN ADEQUACY: Satisfactory for evaluation. -Transitional zone component present. CYTOLOGIC INTERPRETATION: Negative for Intraepithelial Lesion or Malignancy Electronically signed out by: DASHA Gonzalez (ASCP) Processed and screened at [facility] CLINICAL HISTORY: LMP: 10-03-04 Previous normal pap Date of Last Pap: 2001, TESTING LAB LOCATION: [facility] [address] [place], [place] ??[address] COLLECTION SITE: [facility] ([facility] 10/20/2004 10/21/2004 10: 22 AM CDT Jesi Herring MD LABORATORY [facility] * MAMMOGRAM, BOTH BREASTS (DIAG) (09/30/2004 10:48 AM EMERGENCY MEDICAL SERVICE MANAGER) Anatomical Region Laterality Modality Other 09/30/2004 10:4 8 AM EMERGENCY MEDICAL SERVICE MANAGER Impressions 10/01/2004 3:22 PM EMERGENCY MEDICAL SERVICE MANAGER DIAGNOSTIC MAMMOGRAM, BILATERAL AND BREAST ULTRASOUND, RIGHT ?? 09/30/2004 CLINICAL HISTORY: ??Shooting pain in the right breast. BREAST SYMPTOMS: Pain, right. ?? PREVIOUS MAMMOGRAPHY: None. ??Baseline. BREAST PARENCHYMA: Heterogeneously dense. FINDINGS: ??Bilateral mammograms are within normal limits. ??On the original right craniocaudad view there was a questionable nodular density in the medial right breast which could not be reconfirmed on additional images. Ultrasound demonstrates two small morphologically normal lymph nodes in the right axillary region. ??Otherwise negative ultrasound. Any further evaluation of the patient's clinical symptoms should be based on clinical findings and clinical suspicion. IMPRESSION: CATEGORY 2 Benign findings. TECHNOLOGIST INITIALS: ??MS Shanna Sun PA-C SPECIAL IMAGING S TUDIES from Last 3 Months or Most Recently Relevant to Health Maintenance Care Teams Skid Machine Operator Relationship Specialty Start Date End Date Shayna Felicaino MD [address] [address] PCP - General Family Medicine 10/19/23 Luis Manzo DPM [address] [facility] [place] [address] Assigned Musculoskeletal Provider 11/02/23
--- OUTSIDE RECORDS SUMMARY | 2023-12-16 11:22 | XMS_ITS | Encounter Summary ---
Author Organization [facility] Address [address] [place] [address]. [place] [address] Care Team Providers Care Assistant News Director Name Role Phone Earline Herring MD Primary Care Provider Grey prajapati Encounter Details Date Type Department Care Team (Late Contact Info) Description 10/11/2023 Medical Correspondence [facility] [address] [place] [phone] Scan, Non-Provider Social History Tobacco Use Types Packs/Day Years [...] Info) Description 12/31/2023 4:00 PM CDT Appointment [facility] [address] [place] [address] Shayna Feliciano MD [facility] [address] [address] documented as of this encounter Visit Diagnoses Not on filedocumented in this encounter Care Teams Assistant News Director Relationship Specialty Start Date End Date Earline Herring MD XXX [place] [address] PCP - General 09/13/03 10/11/23 documented as of this encounter
--- OUTSIDE RECORDS SUMMARY | 2023-12-16 11:22 | XMS_ITS | Encounter Summary ---
Author Organization [facility] Address [address] [place] [address]. [place] [address] Care Team Providers Care Paper Machine Operator Name Role Phone Shayna Feliciano MD Primary Care Provider [phone] Reason for Visit * Reason Comments Pain Pain * Consultation (Routine) - Pending Review Specialty Diagnoses / Procedures Referred By Contac t Referred To Contact Diagnoses Type 2 diabetes mellitus without complication (H) Onychomycosis Tinea unguium Plantar fasciitis Shayna Feliciano MD [facility] [address] [address] Referral ID Status Reason Start Date Expiration Date V isits Requested Visits Authorized [id number] Pending Review 10/11/2023 10/10/2024 1 1 Encounter Details Date Type Department Care Team (Late st Contact Info) Description 10/19/2023 9:00 AM CDT Office Visit [facility] Podiatry [address] [facility] [address] [place] [address] Luis Ho DPM [address] [facility] [address] [place] [address] Type 2 diabetes mellitus with peripheral neuropathy [...] on file documented as of this encounter Last Filed Vital Signs Vital Sign Reading Time Taken Comments Blood Pressure 133/80 10/19/2023 9:01 AM CDT Pulse - - Temperature - - Respiratory Rate - - Oxygen Saturation - - Inhaled Oxygen Concentration - - Weight 116 kg (255 lb 11.7 oz) 10/19/2023 9:01 A M CDT Height 170.2 cm (5' 7) 10/19/2023 9:01 AM CDT Body Mass Index 40.05 10/19/2023 9:01 AM CDT documented in this encounter Patient Instructions * Patient Instructions* Luis Ho DPM - 10/19/2023 9:00 AM CDT Thank you for choosing [facility] / Foot & Ankle Surgery! DR. HO'S CLINIC LOCATIONS: [facility] (Wednesday) TRIAGE LINE: [phone] [place] [address] APPOINTMENTS: [phone] [place] [address] RADIOLOGY: [phone] PHYSICAL THERAPY: [phone] SET UP SURGERY: [phone] [facility] (Wed- AM-) BILLING QUESTIONS: [phone] [address] [facility] [address] FAX: [phone] [place] [address] [facility]: [phone] He was seen today for 2 issues: 1. Diabetic foot check; 2 history of left foot pain 1. Diabetes mellitus with peripheral neuropathy. See our diabetic recommendation handout below. Seeour home callus instructions as well as our routine footcare handout for future nail/callus care. You were given an orthotic lab referral for diabetic shoes and orthotics no scheduled follow-up is needed. However, with your twice daily routine foot checks, if you see any concerning issues, call clinic and we will get you in immediately. 2. History of left foot pain. 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 I am glad to hear that the foot is not specifically sore today. Baseline therapies for most musculoskeletal aches and pains involved comfortable shoes and minimizing shoeless walking based on pain, [id number] inserts, and resting/icing/anti-inflammatories or Tylenol. With midfoot arthritis, we would also consider x-rays, image guided diagnostic/therapeutic midfoot injections and surgical options. The diabetic shoes and orthotics should help to provide support and stability for the midfoot. No scheduled follow-up is needed. However, if any acute issues develop, either diabetic related or pain related, call/MyChart and we will get you to clinic for reassessment. DIABETES AND YOUR FEET Diabetes can result in several problems in the feet including ulcers (open sores) and amputations. Two of the most important reasons why people develop foot problems when they have diabetes is : 1. Neuropathy (loss of feeling) 2. Vascular disease (loss or decrease of blood flow). Neuropathy is a term used to describe a loss of nerve function. Patients with diabetes are at risk of developing neuropathy if their sugars continue to run high and are above the normal value. One theory for neuropathy is that the extra sugar in the body enters the nerves and is broken down. These by- products build up in the nerve causing it to swell and impairing nerve function. Often times, this can be prevented by controlling your sugars, dieting and exercise. When a person develops neuropathy, they usually begin to feel numbness or tingling in their feet and sometime in their legs. Other symptoms may include painful burning or hot feet, tingling or feeling like insects or ants are crawling on your feet or legs. If the diabetes is sever and the sugars run high for long periods of time, neuropathy can also occur in the hands. Vascular disease is a term used to describe a loss or decrease in circulation (blood flow). There is a problem in getting blood and oxygen to areas that need it. Similar to neuropathy, sugars can build up in the aceves of the arteries (blood vessels) and cause them to become swollen, thickened and hardened. This decreases the amount of blood that can go to an area that needs it. Though this is common in the legs of diabetic patients, it can also affect other arteries (blood vessels) in the body such as in the heart and eyes. In the legs, vascular disease usually results in cramping. Patients who develop leg cramps after walking the same distance every time (i.e. One block, half a mile, ect.) need to let their doctors know so that their circulation may be checked. Cramps causing severe pain in the feet and/or legs whilesleeping and the cramps go away when you stand or hang your legs off the side of the bed, may also be a sign of poor blood circulation. Occasional cramping in cold weather or on rare occasions with activity may not be due to poor circulation, but you should inform your doctor. PREVENTION OF THESE DISEASES The israel to prevention is good blood sugar control. Poor blood sugar control is a big reason many ofthese problems start. Physical activity (exercise) is a very good way to help decrease your blood sugars. Exercise can lower your blood sugar, blood pressure, and cholesterol. It also reduces your risk for heart disease and stroke, relieves stress, and strengthens your heart, muscles and bones. In addition, regular activity helps insulin work better, improves your blood circulation, and keeps your joints flexible. If you're trying to lose weight, a combination of exercise and de food choices can help you reach your target weight and maintain it. PAIN MANAGEMENT (Please speak with your primary doctor about any medications) 1.Blood Sugar Control - Most important 2. Medications such as: Amytriptylline, duloxetine, gabapentin, lyrica, tramadol (talk with your primary care doctor about this). NUTRITION: Nutrition is also important to help with healing. If your body does not have what it needs, it can't heal. Increasing your protein intake is important. With wounds you need 60-90gm of protein a day to help with healing. Over the counter protein shakes such as Daniel, Glucerna, Ensure, ect... can help to supplement your daily protein intake. It is also important to take Vitamins to help with healing. Vitamins such as B12, B6 and Vitamin D3are important for healing. These can be gotten over the counter at pharmacies or at stores like [employer]. I can also prescribe a dietary supplement called Rheumate that has a lot of essential vitamins in one capsule. This may not be covered by insurance though. FOOT CARE RECOMMENDATIONS 1. Wash your feet with lukewarm water and a mild soap and then dry them thoroughly, especially between the toes. 2. Examine your feet daily looking for cuts, corns, blisters, cracks, ect, especially after wearingnew shoes. Make sure to look between your toes. If you cannot see the bottom of your feet, set a mirror on the floor and hold your foot over it, or ask a spouse, friend or family member to examine your feet for you. Contact your doctor immediately if new problems are noted or if sores are not healing. 3. Immediately apply moisturizer to the tops and bottoms of your feet, avoiding areas between the toes. Hand lotion (Intesive Care, Regla, Eucerin, Neutrogena, Curel, ect) is sufficient unless your doctor prescribes a medicated lotion. Apply sunscreen to your feet when going swimming outside. 4. Use clean comfortable shoes, wear white socks (if you have any bleeding or drainage, you will see it on white socks). Socks should not have thick seams or cut off the circulation around the leg. Break in new shoes slowly and rotate with older shoes until broken in. Check the inside of your shoeswith your hand to look for areas of irritation or objects that may have fallen into your shoes. 5. Keep slippers by the side of your bed for use during the night. 6. Shoes should be fitted by a professional and should not cause areas of irritation. Check your feet regularly when wearing a new pair of shoes and replace them as needed. 7. Talk to your doctor about proper exercise. Exercise and stretching stimulate blood flow to your feet and maintain proper glucose levels. 8. Monitor your blood glucose level as instructed by your doctor. Notify your doctor immediately ifyour blood sugar is abnormally high or low. 9. Cut your nails straight across, but then gently round any sharp edges with a cardboard nail file. If you have neuropathy, peripheral vascular disease or cannot see that well to trim your own toenails contact [facility] ([phone]) or [facility] ([phone]). THINGS TO AVOID DOING 1. Do not soak your feet if you have an open sore. Use only lukewarm water and always check the temperature with your hand as hot water can easily burn your feet. 2. Never use a hot water bottle or heating pad on your feet. Also do not apply cold compresses to your feet. With decreased sensation, you could burn or freeze your feet. 3. Do not apply any of these to your feet: - Over the counter medicine for corns or warts - Harsh chemicals like boric acid - Do not self-treat corns, cuts, blisters or infections. Always consult your doctor. 4. Do not wear sandals, slippers or walk barefoot, especially on hot sand or concrete or other harsh surfaces. 5. If you smoke, stop!!! Over the Counter Inserts [employer] are the most common and easiest to find. Locations include any [employer], [employer] in [place] on [address] and in [place] on [address], [facility] on [address] [facility] Running Room in [facility] on [facility], [facility] Running Room in [place] on [address], [employer] in [place] on [address] and [employer] in [place] on [place] and in [place] on [facility]. Spenco can be found online and at [employer] in [place] on [address], [employer] in [facility] on[place], [employer] Store in [place] on [address], [employer] in [place] on [address] and[employer] in [place] on [address]. Power [employer] can be a little harder to find. Locations include [facility] on [facility] in [place], [employer] in [place] on [address], Ray in [facility], [employer] in [place] on [employer] [address] and online A good high quality over the counter insert can cost around $30-$40. WILDER Therapy Many aches and pains throughout the foot and ankle can be helped with many simple treatments. This is usually described as WILDER Therapy. P - Protection - often times, inflammation/pain in the lower extremity is not able to improve simply because the areas involved are never allowed to rest. Every step we take can bother the problematic area. Protecting those areas is an important step in the healing process. This may involve a walking cast boot, a special insert/orthotic device, an ankle brace, or simply avoiding barefoot walking. R - Rest - in addition to protecting the foot/ankle, resting is an important, but often times difficult, treatment option. Getting off your feet when they bother you, and specifically avoiding activities that cause pain/discomfort, are very beneficial to prevent, and treat, foot/ankle pain. If there's something that makes it hurt(eg activities, shoe gear), and you keep doing the thing that makesit hurt, it's just going to keep hurting. I - Ice - icing regularly can help to decrease inflammation and swelling in the foot, thus decreasing pain. Using an ice pack or a bag of frozen peas works very well. Ice for 20 minutes multiple times per day as needed. Do not place the ice directly on the skin as this can cause tissue damage. C - Compression - using a compression wrap or an DIANDRA wrap can help to decrease swelling, which can help to decrease pain. Wearing the wraps is generally not needed at night, but they should be worn on a regular basis when you are going to be on your feet for prolonged periods as gravity tends to pull fluids down to your feet/ankles. E - Elevation - elevating your lower extremities multiple times daily for 15-20 minutes can help todecrease swelling, which works well in decreasing pain levels. NSAID/Tylenol - An anti-inflammatory, like Aleve or ibuprofen, and/or a pain medication, such as Tylenol, can help to improve pain levels and get the issue resolved sooner rather than later. Also, topical anti-inflammatory medications like Voltaren gel can be used for local treatment, with the benefit of avoiding system issues with oral medications. Anyone with liver issues should be careful withTylenol, and anyone with high blood pressure or heart, stomach or kidney issues should be careful with anti-inflammatories. Please ask if you have questions about these medications, including dosage. Here is a list of routine foot care resources, which includes toenail trimming and callus/corn management. This is not a referral. It is your responsibility to contact the organization and your insurance toconfirm cost and coverage. ROUTINE FOOT CARE (NAIL TRIMMING / CALLUSES) [facility] [phone] [facility] [phone] Multiple locations [facility] [phone] [address] Coreas [address] [place] [address] [facility] [phone] [employer] Tips for treating painful calluses: 1. Pumice stone/magen board therapy multiple times weekly to remove callus tissue as it builds up 2. Good supportive shoes and minimizing barefoot ambulation can slow down callus formation, and candecrease pain levels 3. Gel inserts can also provide padding to the bottom of the foot, to prevent pain and slow recurrence. 4. Applying lotion daily/twice daily to the callus tissue can keep it softer and less painful. Lotions with lactic acid or urea work well, but most lotions are sufficient documented in this encounter Progress Notes * Luis Ho DPM - 10/19/2023 9:00 AM CDT Foot & Ankle Surgery October 19, 2023 CC: Diabetic check I was asked to see Niurka Dickinson regarding the chief complaint by: Dr. Feliciano HPI: Pt is a 63 year old female who presents with above complaint. The patient states that she was diagnosed with diabetes in September 2023. She does not recall what her A1c is. I have had some problems with my feet. She was told that she has had plantar fasciitis. She states the left foot can swelland be painful with increased time on her feet but this not currently sore. She does have numbness i n her feet. ROS: Pos for CC. The patient denies current nausea, vomiting, chills, fevers, belly pain, calf pain, chest pain or SOB. Complete remainder of ROS is otherwise neg. VITALS: Vitals: 10/19/23 0901 BP: 133/80 Height: 1.702 m (5' 7) PMH: Past Medical History: Diagnosis Date ALLERGIC RHINITIS NOS IDIOPATHIC SCOLIOSIS MIGRAINE NOS W/O MENTN INTRACTABLE SXHX: Past Surgical History: Procedure Laterality Date NONSPECIFIC PROCEDURE s/p tonsillectomy NONSPECIFIC PROCEDURE 12/20/96 carpal tunnel (R) MEDS: Current Outpatient Medications Medication Sig Dispense Refill ALBUTEROL 90 MCG/ACT IN AERS 1-2 puffs Q 4-6 hrs prn 2 11 EFFEXOR 75 MG OR TABS 1 TABLET DAILY WITH FOOD 90 1 No current facility-administered medications for this visit. ALL: Allergies Allergen Reactions Azithromycin diarrhea Cephalosporins breathing probs Hydrocodone rash Penicillins hives FMH: Family History Problem Relation Age of Onset Diabetes Father Diabetes Mother C.A.D. Father chf Heart Disease Mother enlarged heart Alcohol/Drug Brother Alcohol/Drug Brother Cancer Daughter neuroblastoma at a 21 mos SocHx: Social History Socioeconomic History Marital status: Spouse name: Not on file Number of children: Not on file Years of education: Not on file Highest education level: Not on file Occupational History Not on file Tobacco Use Smoking status: Every Day Packs/day: 0.50 Years: 20.00 Additional pack years: 0.00 Total pack years: 10.00 Types: Cigarettes Smokeless tobacco: Not on file Substance and Sexual Activity Alcohol use: Yes Comment: occ Drug use: Not on file Sexual activity: Yes Partners: Male Other Topics Concern Not on file Social History Narrative Not on file Social Determinants of Health Financial Resource Strain: Not on file Food Insecurity: Not on file Transportation Needs: Not on file Physical Activity: Not on file Stress: Not on file Social Connections: Not on file Interpersonal Safety: Not on file Housing Stability: Not on file EXAMINATION: Gen: No apparent distress Neuro: A&Ox3, no deficits Psych: Answering questions appropriately for age and situation with normal affect Head: NCAT Eye: Visual scanning without deficit Ear: Response to auditory stimuli wnl Lung: Non-labored breathing on RA noted Abd: NTND per patient report Lymph: Neg for pitting/non-pitting edema BLE Vasc: Pulses palpable, CFT minimally delayed Neuro: Light touch sensation diminished distally Derm: Callusing throughout the foot, most notable at the plantar medial first MPJ and hallux bilateral. Onychomycosis bilateral. No open wounds are seen. MSK: Low-grade clinical bunion and hammertoes. No acute deformity seen.. No acute left foot pain isseen. She points to the dorsal aspect of the foot. There is periarticular spurring and crepitus with manipulation of the first tarsometatarsal joint. 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 Diabetes mellitus with peripheral neuropathy, calluses and onychomycosis -I personally reviewed and interpreted the patient's lower extremity history pertinent to today's visit, including imaging/labs, in preparation for initiating a treatment program. -Regarding the patient's diabetes, we dispensed and discussed proper diabetic foot care. This includes closely monitoring their blood sugars, closely monitoring their blood pressures, and evaluating their feet at least once per day. We also discussed potential problems associated with barefoot/sock ambulation and soaking their feet. -Our home callus instructions were dispensed -All routine footcare handout was dispensed for future nail/callus care -An orthotic lab referral was signed for extra-depth diabetic shoes and orthotics Diabetic foot exam: normal DP and PT pulses, reduced sensation at bilateral foot, bunions, and callusing throughout foot 2. H/o left foot pain with midfoot arthrits -Patient indicates pain levels are minimal currently -Baseline therapies for musculoskeletal foot pain were discussed including comfortable shoes, minimizing shoeless walking, [id number] inserts and RICE/NSAID versus Tylenol. Based on pain. -An orthotic lab referral was signed for custom orthotics -If symptoms develop and fail to respond to the above plan, consider x-ray, diagnostic/therapeutic image guided midfoot injections and surgery Follow up: prn or sooner with acute issues Patient's medical history was reviewed today Luis Ho DPM FACFAS [facility] Podiatric Foot & Ankle Surgeon [facility] [phone] Disclaimer: This note consists of symbols derived from keyboarding, dictation and/or voice recognition software. As a result, there may be errors in the script that have gone undetected. Please consider this when interpreting information found in this chart. documented in this encounter Plan of Treatment Upcoming Encounters Date Type Department Care Team (Late st Contact Info) Description 12/31/2023 4:00 PM CDT Appointment [facility] [address] [facility] [address] [place] [id number] Shayna Feliciano MD [facility] [address] [id number] documented as of this encounter Visit Diagnoses Diagnosis Type 2 diabetes mellitus with peripheral neuropathy (H)- Primary Onychomycosis Dermatophytosis of nail Tinea unguium Dermatophytosis of nail Plantar fasciitis Plantar fascial fibromatosis documented in this encounter Care Teams Paper Machine Operator Relationship Specialty Start Date End Date Shayna Feliciano MD [address] [address] PCP - General Family Medicine 10/19/23 documented as of this encounter
--- OUTSIDE RECORDS SUMMARY | 2023-12-16 11:22 | XMS_ITS | Encounter Summary ---
Author Organization [facility] Address [address] [place] [address]. [place] [address] Care Team Providers Care Investigation Manager Name Role Phone Shayna Feliciano MD Primary Care Provider [phone] Encounter Details Date Type Department Care Team (Latest Contact Info) Description 10/19/2023 Travel Social History Tobacco Use Types Packs/Day Years [...] Info) Description 12/31/2023 4:00 PM CDT Appointment [facility] [address] [facility] [address] [place] [address] Shayna Feliciano MD [address] [address] documented as of this encounter Visit Diagnoses Not on filedocumented in this encounter Care Teams Investigation Manager Relationship Specialty Start Date End Date Shayna Feliciano MD [address] [address] PCP - General Family Medicine 10/19/23 documented as of this encounter
--- OUTSIDE RECORDS SUMMARY | 2023-12-16 11:22 | XMS_ITS | Referral Summary ---
Author Organization [facility] Address [address] [place] [address]. [place] [address] Care Team Providers Care Production Painter Name Role Phone Shayna Feliciano MD Primary Care Provider [phone] Luis Manzo DPKorina Unavailable [phone] Encounters Date Type Department Care Team Description 10/19/2023 Travel 10/19/2023 9:00 AM CDT [facility] [address] [place] [address] Luis Manzo DPM Type 2 diabetes mellitus with peripheral neuropathy (H) (Primary Dx); Onychomycosis; Tinea unguium; Plantar fasciitis 10/11/[address] [facility] [address] [place] [phone] Scan, Non-Provider 10/11/2023 Transcribe Orders GENERIC EXTERNAL DATA DEPARTMENT Provider, Generic External Data Type 2 diabetes mellitus without complication (H) (Primary Dx); Onychomycosis; Tinea unguium; Plantar fasciitis from Last 3 Months Allergies Active Allergy Reactions Criticality Noted Date [...] Dermatophytosis of nail 12/28/2002 Ingrowing nail 12/28/2002 Immunizations Name Administration Dates Next Due Mantoux Tuberculin Skin Test 05/25/2002 Social History Tobacco Use Types Packs/Day Years [...] Info) Description 12/31/2023 4:00 PM CDT Appointment [facility] [address] [facility] [address] [place] [address] Shayna Feliciano MD [facility] [address] [address] Procedures Procedure Name Priority Date/Time Associated Diagnosis Comments BASIC METABOLIC PANEL Timed 12/08/2007 7:21 AM CDT CL AFF A.M.A. LIPID PANEL Routine 10/20/2004 11:00 AM CDT Routine Medical Exam HCL PAP THIN LAYER SCREEN Routine 10/20/2004 12:00 AM CDT Routine Medical Exam C MAMMOGRAM, BOTH BREASTS (DIAG) Routine 09/30/2004 10:48 AM CALIBRATION CHECKER Pain in limb from Last 3 Months [...] CDT) Cholesterol 235(H) 0 - 200 mg/dL [facility] Comment: Cholesterol Reference Range: <200 ??The NCEP recommends further ? evaluation of: ? 1. ??Patients with cholesterol ? greater than 200 mg/dL ? if additional risk factors ? are present. ? 2. ??All patients with a ? cholesterol greater than ? 240 mg/dL. Triglycerides 126 0 - 150 mg/dL [facility] HDL Cholesterol 43 >40 mg/dL [facility] LDL Cholesterol Calculated 167(H) 0 - 129 mg/dL [facility] VLDL-Cholesterol 25 0 - 30 mg/dL [facility] Cholesterol/HDL Ratio 5.5(H) 0.0 - 5.0 [facility] 10/20/2004 11:0 0 AM CDT 10/20/2004 11:03 AM CDT Jesi Herring MD LABORATORY [facility] * A THIN LAYER PAP SCREEN (10/20/2004 12:00 AM CDT) PAP DAXA Hall Report Patient Name: NIURKA JEFFERSON MR#: [id number] Specimen #: [id number] Collected: 10/20/2004 Received: 10/21/2004 Reported: 10/22/2004 14:35 Ordering Phy(s): JESI HERRING SPECIMEN/STAIN PROCESS: Pap thin layer prep screening ? Pap-Cyto x 1, Reflex HPV x 1 SOURCE: Cervical, endocervical Pap thin layer prep screening SPECIMEN ADEQUACY: Satisfactory for evaluation. -Transitional zone component present. CYTOLOGIC INTERPRETATION: Negative for Intraepithelial Lesion or Malignancy Electronically signed out by: Arvind Abbott SCT (ASCP) Processed and screened at [facility] CLINICAL HISTORY: LMP: 10-03-04 Previous normal pap Date of Last Pap: 2001, TESTING LAB LOCATION: [facility] [address] [place], [place] ??[address] COLLECTION SITE: Client: ??[facility] Location: CRFP (R) COPATH 10/20/2004 10/21/2004 10: 22 AM CDT Jesi Herring MD LABORATORY COPATH * MAMMOGRAM, BOTH BREASTS (DIAG) (09/30/2004 10:48 AM CALIBRATION CHECKER) Anatomical Region Laterality Modality Other 09/30/2004 10:4 8 AM CALIBRATION CHECKER Impressions 10/01/2004 3:22 PM CALIBRATION CHECKER DIAGNOSTIC MAMMOGRAM, BILATERAL AND BREAST ULTRASOUND, RIGHT [...] Recently Relevant to Health Maintenance Care Teams Production Painter Relationship Specialty Start Date End Date Shayna Feliciano MD [address] [address] PCP - General Family Medicine 10/19/23 Luis Manzo DPM [id number] [address] Assigned Musculoskeletal Provider 11/02/23
== END 2023-12-16 11:21 | disposition home or self-care (01) ==
LOC: FRMREF 11:20
PROVIDERS: PCP Family Medicine; Visit Provider Family Medicine
DX: R46.89 Other symptoms and signs involving appearance and behavior (principal); Z13.29 Encounter for screening for other suspected endocrine disorder
CPT/HCPCS: 84443

== ENCOUNTER 2024-03-09 14:50 | Outpatient (CLI) | payer BC, SELFPAY ==
--- OUTSIDE RECORDS SUMMARY | 2024-03-09 14:53 | XMS_ITS | Clinical Summary ---
Author Organization [employer] [facility] [facility] Address [place], [place] [address] Care Team Providers Care Construction Crew Member Name Role Phone Shayna Feliciano MD Primary Care Provider [phone] Allergies Active Allergy Reactions Criticality Noted Date [...] Active Active Problems No known active problems Encounters Date Type Department Care Team Description 03/09/2024 2:00 PM CDT Office Visit [facility] [address] [place] [address] Gee Sumner MD Arrived from Last 3 Months Social History Tobacco Use Types Packs/Day Years [...] (1 of 2) 2011 COVID-19 vaccine series (3 - 2022- season) 2023 10/25/2020, 09/27/2020 Influenza for age 50-64 03/12/2024 Pneumococcal series for age 6-64 Aged Out No longer eligible b ased on patient's age to complete this topic Care Teams Construction Crew Member Relationship Specialty Start Date End Date Shayna Feliciano MD PCP - General 08/18/22
--- OUTSIDE RECORDS SUMMARY | 2024-03-09 14:53 | XMS_ITS | Referral Summary ---
Author Organization [facility] [place] Address [address] [place] [address]. [place] [address] Care Team Providers Care Welding Process Engineer Name Role Phone Shayna Feliciano MD Primary Care Provider [phone] Luis Manzo DPM Unavailable [phone] Encounters Date Type Department Care Team Description 02/03/2024 Travel 02/03/2024 1:00 PM CDT - 02/03/2024 11:59 PM CDT Hospital Encounter [facility] [address] [place] [phone] Shayna Feliciano MD Abnormal result of other cardiovascular function study Discharge Disposition: Home or Self Care 12/28/2023 Telephone [facility] [address] [place] [phone] None Call to schedule test (CT Angiogram coronary artery) 12/26/2023 Travel from Last 3 Months Allergies Active Allergy Reactions Criticality Noted Date Comments Azithromycin 07/13/2003 diarrhea Cephalosporins 12/28/2002 breathing probs Clindamycin Diarrhea High 02/03/2023 Codeine GI Disturbance Low 08/01/2013 Hydrocodone 12/28/2002 rash Nitrofurantoin Unknown 08/01/2013 Penicillins 12/28/2002 hives Medications Medication Sig Dispensed [...] Sign Reading Time Taken Comments Blood Pressure 146/80 02/03/2024 1:19 PM CDT Pulse 70 02/03/2024 1:19 PM CDT Temperature 36.9 ??C (98.5 ??F) 09/27/2004 10:[address] Respiratory Rate - - Oxygen Saturation - - Inhaled Oxygen Concentration - - Weight 116 kg (255 lb 11.7 oz) 10/19/2023 9:01 A M CDT Height 170.2 cm (5' 7) 10/19/2023 9:01 AM CDT Body Mass Index 40.05 10/19/2023 9:01 AM CDT Plan of Treatment Not on file Procedures Procedure Name Priority Date/Time Associated Diagnosis Comments CTA ANGIOGRAM CORONARY ARTERY Routine 02/03/2024 3:20 PM CDT Abnormal result of other cardiovascular function study RADIOLOGIST CONSULT FOR CARDIOLOGY Routine 02/03/2024 3:20 PM CDT Abnormal result of other cardiovascular function study ISTAT CREATININE POCT Routine 02/03/2024 1:28 PM CDT BASIC METABOLIC PANEL Timed 12/08/2007 7:21 AM CDT CL AFF A.M.A. LIPID PANEL Routine 10/20/2004 11:00 AM CDT Routine Medical Exam HCL PAP THIN LAYER SCREEN Routine 10/20/2004 12:00 AM CDT Routine Medical Exam C MAMMOGRAM, BOTH BREASTS (DIAG) Routine 09/30/2004 10:48 AM FLY FISHING GUIDE Pain in limb from Last 3 Months or Most Recently Relevant to Health Maintenance Results * CT Angiogram coronary artery (02/03/2024 3:20 PM CDT) Anatomical Region Laterality Modality Cardio, SUBRAD CT BODY, UMP CT CHEST, RAD CT Computed Tomography Narrative 02/03/2024 4:00 PM CDT Procedure: CTA ANGIOGRAM CORONARY ARTERY Examination Date: 02/03/2024 3:20 PM Indication: ??Equivocal dobutamine echocardiogram in 2022. Clinical Information: equivocal stress echo; Abnormal result of other cardiovascular function study Ordering Physician: Shayna Feliciano Overall quality of the study: Fair. Step artifact present in the LAD and right coronary artery . Significant impact from body habitus on image quality. PROCEDURE:The patient was positioned in the scanner gantry and an IV was started using an 18 gauge IV in the right antecubital fossa. Utilizing 110 cc ??Isovue 370, wasted 0 cc, multi-slice computed tomography was performed with a Siemens Dual Source Flash scanner without incident. Beta-blockers were required to optimize heart rate, patient was given Metoprolol 50 mg Oral, Metoprolol 0 mg ??IV, ivabradine 10 mg orally.. The patient was given pre-medication of sublingual Nitrostat 0.4 mg prior to scanning. CTA was performed in the spiral mode at a heart rate of 50 bpm with 120 kVp. Images were reconstructed and analyzed on a bLife workstation. Scan protocol was optimized to minimize radiation exposure. The total radiation exposure was calculated to be 599 DLP, and 8.39 mSv. FINDINGS: CORONARY CALCIUM SCORE: The total Agatston calcium score is 357, Left main: 0, left anterior descendin.05, ??circumflex: 26.7, right coronary artery: 56.6. This places the patient in the 96th percentile when compared to age and gender matched control group. CORONARY ANGIOGRAPHY : 1. Normal left main coronary artery. 2. Mild left anterior descending artery disease. 3. Trivial circumflex disease 4. Mild right coronary artery disease. CORONARY ANGIOGRAPHY DOMINANCE: Right dominant system. LEFT MAIN: The left main arises from the left coronary cusp. The left main is widely patent without any stenosis or plaque. LEFT ANTERIOR DESCENDING ARTERY: The proximal left anterior descending artery is mildly to moderately calcified and mildly stenosed with predominantly calcified plaque though noncalcified plaque is also present. The mid left anterior descending artery is trivially stenosed with noncalcified plaque. Step artifact is present in the distal left anterior descending artery. However ??phases 5 and 6 had diagnostic image quality. The distal left anterior descending artery appears to be mildly stenosed with noncalcified plaque. The large first diagonal artery appears to be trivially stenosed with noncalcified plaque. LEFT CIRCUMFLEX ARTERY: The proximal circumflex appears to be patent without obvious stenosis or plaque. The mid circumflex is mildly calcified and trivially stenosed with predominantly calcified plaque. The distal circumflex is trivially stenosed with noncalcified plaque. The first obtuse marginal artery is a tortuous vessel. The first obtuse marginal artery appears to be trivially stenosed with noncalcified plaque. The distal portion of this vessel small in caliber and tortuous and difficult to assess for stenosis but is clearly patent. The second obtuse marginal artery also is tortuous. The second obtuse marginal artery appears to be trivially stenosed with noncalcified plaque. The very distal portions of this vessel are small in caliber and difficult to assess for stenosis but are clearly patent. The third obtuse marginal artery is also a tortuous vessel which again appears to be trivially stenosed with noncalcified plaque and also the distal portion of this vessel are small in caliber and tortuous and difficult to assess for stenosis but are clearly patent. The fourth obtuse marginal artery is a small caliber vessel which is patent. RIGHT CORONARY ARTERY: The right coronary artery is a large dominant vessel. The proximal right coronary artery is mildly calcified. The proximal right coronary artery is trivially stenosed with mixed plaque. The mid right coronary artery is mildly calcified. Step artifact is present in this area but phases 5 and 6 allowed for diagnostic imaging. The mid right coronary artery appears to be mildly stenosed with mixed plaque. The distal right coronary arteries trivially calcified and trivially stenosed with mixed plaque. The posterior descending artery is small in caliber with a 180 degrees bend in its proximal portion. Looking at this area in multiple views at most there appears to be a mild stenosis in the posterior descending artery. Posterolateral artery appears to be trivially stenosed with noncalcified plaque. Very distal portion of the posterolateral artery is small in caliber and difficult to assess for stenosis but is clearly patent. ADDITIONAL FINDINGS: The aortic root is normal in dimension measuring 3.18 x 3.23 cm in measurement from sinus to sinus. The aortic valve is trileaflet. The visualized portion of the proximal ascending aorta is normal in dimension measuring 3.20 x 3.02 cm. Trivial calcification is noted in the aortic root and sinotubular junction. Normal pulmonary venous anatomy with all four pulmonary veins draining into the left atrium. ?? There is no left ventricular mass or thrombus. Normal pericardial thickness. There is no pericardial effusion. The proximal pulmonary arteries are not well opacified. Please review Radiology report for incidental noncardiac findings that will follow separately. REFERENCE STENOSIS GRADING CLASSIFICATIONS: Normal: Absence of plaque and no luminal stenosis Minimal / trivial: Plaque with < 25% stenosis Mild: 25%-49% stenosis Moderate: ??50-69% stenosis Severe: 70-99% stenosis Obstructive LIBORIO ZAMORA MD Procedure Note Liborio Montoya MD - 02/03/2024 Procedure: CTA ANGIOGRAM CORONARY ARTERY Examination Date: 02/03/2024 3:20 PM Indication: Equivocal dobutamine echocardiogram in 2022. Clinical Information: equivocal stress echo; Abnormal result of other cardiovascular function study Ordering Physician: Shayna Feliciano Overall quality of the study: Fair. Step artifact present in the LAD and right coronary artery . Significant impact from body habitus on image quality. PROCEDURE:The patient was positioned in the scanner gantry and an IV was started using an 18 gauge IV in the right antecubital fossa. Utilizing 110 cc Isovue 370, wasted 0 cc, multi-slice computed tomography was performed with a Siemens Dual Source Flash scanner without incident. Beta-blockers were required to optimize heart rate, patient was given Metoprolol 50 mg Oral, Metoprolol 0 mg IV, ivabradine 10 mg orally.. The patient was given pre-medication of sublingual Nitrostat 0.4 mg prior to scanning. CTA was performed in the spiral mode at a heart rate of 50 bpm with 120 kVp. Images were reconstructed and analyzed on a bLife workstation. Scan protocol was optimized to minimize radiation exposure. The total radiation exposure was calculated to be 599 DLP, and 8.39 mSv. FINDINGS: CORONARY CALCIUM SCORE: The total Agatston calcium score is 357, Left main: 0, left anterior descendin.05, circumflex: 26.7, right coronary artery: 56.6. This places the patient in the 96th percentile when compared to age and gender matched control group. CORONARY ANGIOGRAPHY : 1. Normal left main coronary artery. 2. Mild left anterior descending artery disease. 3. Trivial circumflex disease 4. Mild right coronary artery disease. CORONARY ANGIOGRAPHY DOMINANCE: Right dominant system. LEFT MAIN: The left main arises from the left coronary cusp. The left main is widely patent without any stenosis or plaque. LEFT ANTERIOR DESCENDING ARTERY: The proximal left anterior descending artery is mildly to moderately calcified and mildly stenosed with predominantly calcified plaque though noncalcified plaque is also present. The mid left anterior descending artery is trivially stenosed with noncalcified plaque. Step artifact is present in the distal left anterior descending artery. However phases 5 and 6 had diagnostic image quality. The distal left anterior descending artery appears to be mildly stenosed with noncalcified plaque. The large first diagonal artery appears to be trivially stenosed with noncalcified plaque. LEFT CIRCUMFLEX ARTERY: The proximal circumflex appears to be patent without obvious stenosis or plaque. The mid circumflex is mildly calcified and trivially stenosed with predominantly calcified plaque. The distal circumflex is trivially stenosed with noncalcified plaque. The first obtuse marginal artery is a tortuous vessel. The first obtuse marginal artery appears to be trivially stenosed with noncalcified plaque. The distal portion of this vessel small in caliber and tortuous and difficult to assess for stenosis but is clearly patent. The second obtuse marginal artery also is tortuous. The second obtuse marginal artery appears to be trivially stenosed with noncalcified plaque. The very distal portions of this vessel are small in caliber and difficult to assess for stenosis but are clearly patent. The third obtuse marginal artery is also a tortuous vessel which again appears to be trivially stenosed with noncalcified plaque and also the distal portion of this vessel are small in caliber and tortuous and difficult to assess for stenosis but are clearly patent. The fourth obtuse marginal artery is a small caliber vessel which is patent. RIGHT CORONARY ARTERY: The right coronary artery is a large dominant vessel. The proximal right coronary artery is mildly calcified. The proximal right coronary artery is trivially stenosed with mixed plaque. The mid right coronary artery is mildly calcified. Step artifact is present in this area but phases 5 and 6 allowed for diagnostic imaging. The mid right coronary artery appears to be mildly stenosed with mixed plaque. The distal right coronary arteries trivially calcified and trivially stenosed with mixed plaque. The posterior descending artery is small in caliber with a 180 degrees bend in its proximal portion. Looking at this area in multiple views at most there appears to be a mild stenosis in the posterior descending artery. Posterolateral artery appears to be trivially stenosed with noncalcified plaque. Very distal portion of the posterolateral artery is small in caliber and difficult to assess for stenosis but is clearly patent. ADDITIONAL FINDINGS: The aortic root is normal in dimension measuring 3.18 x 3.23 cm in measurement from sinus to sinus. The aortic valve is trileaflet. The visualized portion of the proximal ascending aorta is normal in dimension measuring 3.20 x 3.02 cm. Trivial calcification is noted in the aortic root and sinotubular junction. Normal pulmonary venous anatomy with all four pulmonary veins draining into the left atrium. There is no left ventricular mass or thrombus. Normal pericardial thickness. There is no pericardial effusion. The proximal pulmonary arteries are not well opacified. Please review Radiology report for incidental noncardiac findings that will follow separately. REFERENCE STENOSIS GRADING CLASSIFICATIONS: Normal: Absence of plaque and no luminal stenosis Minimal / trivial: Plaque with < 25% stenosis Mild: 25%-49% stenosis Moderate: 50-69% stenosis Severe: 70-99% stenosis Obstructive LIBORIO ZAMORA MD Shayna Feliciano MD IMG CT ORDERABLES * Radiologist Consult For Cardiology (02/03/2024 3:20 PM CDT) Anatomical Region Laterality Modality Computed Tomogra phy Impressions 02/04/2024 5:17 PM CDT IMPRESSION: Sclerotic focus within a lower thoracic vertebral body (4/64) likely reflects bone island. ??No significant noncardiac nonvascular findings. Please see cardiology report for cardiac and vascular findings. ISABELA EDDY MD Narrative 02/04/2024 5:17 PM CDT RADIOLOGIST CONSULT FOR CARDIOLOGY ??02/03/2024 3:20 PM HISTORY: Abnormal result of other cardiovascular function study COMPARISON: None. TECHNIQUE: Volumetric helical acquisition of CT images of the chest from the clavicles to the kidneys were acquired without IV contrast. Radiation dose for this scan was reduced using automated exposure control, adjustment of the mA and/or kV according to patient size, or iterative reconstruction technique. Procedure Note Isabela Eddy MD - 02/04/2024 RADIOLOGIST CONSULT FOR CARDIOLOGY 02/03/2024 3:20 PM HISTORY: Abnormal result of other cardiovascular function study COMPARISON: None. TECHNIQUE: Volumetric helical acquisition of CT images of the chest from the clavicles to the kidneys were acquired without IV contrast. Radiation dose for this scan was reduced using automated exposure control, adjustment of the mA and/or kV according to patient size, or iterative reconstruction technique. IMPRESSION: Sclerotic focus within a lower thoracic vertebral body (4/64) likely reflects bone island. No significant noncardiac nonvascular findings. Please see cardiology report for cardiac and vascular findings. ISABELA EDDY MD Shayna Feliciano MD IMG DIAGNOSTIC IM AGING ORDERABLES * Creatinine POCT (02/03/2024 1:28 PM CDT) Creatinine POCT 0.9 0.5 - 1.0 mg/dL 02/03/2024 1:30 PM CDT LABORATORY POC GFR, ESTIMATED POCT >60 >60 mL/min/1.7 3m2 02/03/2024 1:30 PM CDT LABORATORY POC Blood, venous BLOOD SPECIMEN / Unknown 02/03/2024 1:28 PM CDT 02/03/2024 1:30 PM CDT Shayna Feliciano MD LAB - BEAKER POCT LABORATORY POC [facility] [address], [address] [place] [address]RUST * Basic metabolic panel (12/08/2007 7:21 AM [...] AM CDT 12/08/2007 5:59 AM CDT [facility] LAB - BLOOD ORDERABL ES Performing Organization Address [facility]/ZIP Co de Phone Number MISYS * (ABNORMAL) A.M.A. LIPID PANEL (10/20/2004 11:00 AM CDT) Cholesterol 235(H) 0 - 200 mg/dL [facility] Comment: Cholesterol Reference Range: <200 ??The NCEP recommends further ? evaluation of: ? 1. ??Patients with cholesterol ? greater than 200 mg/dL ? if additional risk factors ? are present. ? 2. ??All patients with a ? cholesterol greater than ? 240 mg/dL. Triglycerides 126 0 - 150 mg/dL [facility] HDL Cholesterol 43 >40 mg/dL [facility] LDL Cholesterol Calculated 167(H) 0 - 129 mg/dL [facility] VLDL-Cholesterol 25 0 - 30 mg/dL [facility] Cholesterol/HDL Ratio 5.5(H) 0.0 - 5.0 [facility] 10/20/2004 11:0 0 AM CDT 10/20/2004 11:03 AM CDT Jesi Herring MD LABORATORY Performing Organization Address [facility] de Phone Number [facility] * A THIN LAYER PAP SCREEN (10/20/2004 12:00 AM CDT) PAP DAXA Hall Report Patient Name: NIURKA JEFFERSON MR#: [id number] Specimen #: [id number] Collected: 10/20/2004 Received: 10/21/2004 Reported: 10/22/2004 14:35 Ordering Phy(s): JESI HERRING SPECIMEN/STAIN PROCESS: Pap thin layer prep screening ? Pap-Cyto x 1, Reflex HPV x 1 SOURCE: Cervical, endocervical Pap thin layer prep screening SPECIMEN ADEQUACY: Satisfactory for evaluation. -Transitional zone component present. CYTOLOGIC INTERPRETATION: Negative for Intraepithelial Lesion or Malignancy Electronically signed out by: DASHA Gonzalez (ASCP) Processed and screened at [facility] CLINICAL HISTORY: LMP: 10-03-04 Previous normal pap Date of Last Pap: 2001, TESTING LAB LOCATION: [facility] [address] [place], [place] ??[phone] COLLECTION SITE: Client: ??[facility] Location: CRFP (R) COPATH 10/20/2004 10/21/2004 10: 22 AM CDT Jesi Herring MD LABORATORY COPATH * MAMMOGRAM, BOTH BREASTS (DIAG) (09/30/2004 10:48 AM FLY FISHING GUIDE) Anatomical Region Laterality Modality Other 09/30/2004 10:4 8 AM FLY FISHING GUIDE Impressions 10/01/2004 3:22 PM FLY FISHING GUIDE DIAGNOSTIC MAMMOGRAM, BILATERAL AND BREAST ULTRASOUND, RIGHT [...] Recently Relevant to Health Maintenance Care Teams Welding Process Engineer Relationship Specialty Start Date End Date Shayna Feliciano MD [address] [id number] PCP - General Family Medicine 10/19/23 Luis Manzo DPM [id number] [address] [place] [address] Assigned Musculoskeletal Provider 11/02/23
--- OUTSIDE RECORDS SUMMARY | 2024-03-09 14:53 | XMS_ITS | Encounter Summary ---
Author Organization [place] Address [address] [place] [address]. [place] [address] Care Team Providers Care Public Health Technologist Name Role Phone Shayna Feliciano MD Primary Care Provider + -[phone] Luis Manzo DPM Unavailable [phone] Encounter Details Date Type Department Care Team (Latest Contact Info) Description 02/03/2024 Travel Social History Tobacco Use Types Packs/Day [...] as of this encounter Plan of Treatment Not on file documented as of this encounter Visit Diagnoses Not on filedocumented in this encounter Care Teams Public Health Technologist Relationship Specialty Start Date End Date Shayna Feliciano MD [address] [address] PCP - General Family Medicine 10/19/23 Luis Manzo DPM [id number] [place] [address] [address] [place] [address] Assigned Musculoskeletal Provider 11/02/23 documented as of this encounter
--- OUTSIDE RECORDS SUMMARY | 2024-03-09 14:53 | XMS_ITS | Encounter Summary ---
Author Organization [place] Address [address] [place] [address] Care Team Providers Care Correctional Treatment Specialist Name Role Phone Shayna Feliciano MD Primary Care Provider [phone] Luis Manzo DPM Unavailable [phone] Reason for Referral * Diagnostic Imaging CT Scan (Routine) - Closed Specialty Diagnoses / Procedures Referred By Contac t Referred To Contact Radiology. Diagnoses Abnormal result of other cardiovascular function study Procedures CT Angiogram coronary artery CT Coronary Calcium Scan Shayna Feliciano MD [address] [address] [address] Scan [address] [place] [address] Referral ID Status Reason Start Date Expiration Date Visits Re quested Visits Authorized [id number] Closed 10/12/2023 10/11/2024 1 1 * Diagnostic Imaging XR (Routine) - Pending Review Specialty Diagnoses / Procedures Referred By Contac t Referred To Contact Radiology. Diagnoses Abnormal result of other cardiovascular function study Procedures Radiologist Consult For Cardiology Shayna Feliciano MD [address] [address] Referral ID Status Reason Start Date Expiration Date V isits Requested Visits Authorized [id number] Pending Review 12/28/2023 12/27/2024 1 1 Reason for Visit * Diagnostic Imaging CT Scan (Routine) - Closed Specialty Diagnoses / Procedures Referred By Contac t Referred To Contact Radiology. Diagnoses Abnormal result of other cardiovascular function study Procedures CT Angiogram coronary artery CT Coronary Calcium Scan Shayna Feliciano MD [facility] [address] [place] [address] Ct Scan [address] [facility] [address] Referral ID Status Reason Start Date Expiration Date Visits Re quested Visits Authorized [id number] Closed 10/12/2023 10/11/2024 1 1 Encounter Details Date Type Department Care Team (Latest Contact Info) Description 02/03/2024 1:00 PM CDT - 02/03/2024 11:59 PM CDT Hospital Encounter [facility] [address] [facility] [address] [place] [address] Shayna Feliciano MD [facility] [address] [place] [address] Abnormal result of other cardiovascular function study Discharge Disposition: Home or Self Care Social History Tobacco Use Types Packs/Day Years [...] Pulse 70 02/03/2024 1:19 PM CDT Temperature - - Respiratory Rate - - Oxygen Saturation - - Inhaled Oxygen Concentration - - Weight - - Height - - Body Mass Index - - documented in this encounter Medications at Time of Discharge Medication Sig Dispensed Refills Start Date End Date ALBUTEROL 90 MCG/ACT IN AERSIndications:Allergic rhinitis, cause unspecified,Unspecified asthma(493.90) 1-2 puffs Q 4-6 hrs prn 2 11 12/28/2002 EFFEXOR 75 MG OR TABSIndications:Depressive disorder, not elsewhere classified 1 TABLET DAILY WITH FOOD 90 1 10/20/2004 documented as of this encounter Plan of Treatment Not on file documented as of this encounter Procedures Procedure Name Priority Date/Time Associated Diagnosis Comments CTA ANGIOGRAM CORONARY ARTERY Routine 02/03/2024 3:20 PM CDT Abnormal result of other cardiovascular function study RADIOLOGIST CONSULT FOR CARDIOLOGY Routine 02/03/2024 3:20 PM CDT Abnormal result of other cardiovascular function study ISTAT CREATININE POCT Routine 02/03/2024 1:28 PM CDT documented in this encounter Results * CT Angiogram coronary artery (02/03/2024 [...] Images were reconstructed and analyzed on a [employer] workstation. Scan protocol was optimized to minimize [...] Images were reconstructed and analyzed on a [employer] workstation. Scan protocol was optimized to minimize [...] MD LAB - BEAKER POCT LABORATORY POC [facility] Acute Care Lab [address] 1st floor, [address] [place] [address] documented in this encounter Visit Diagnoses Diagnosis Abnormal result of other cardiovascular function study documented in this encounter Administered Medications Inactive Administered Medications - up to 3 most recent administrations Medication Order MAR Action Action Date Dose Rate Site iopamidol (ISOVUE-370) solution 500 mL 500 mL, Intravenous, ONCE, On Miakla 02/03/24 at 1430, For 1 dose $Given 02/03/2024 2:41 PM CDT 120 mLs ivabradine (CORLANOR) tablet 5-15 mg 5-15 mg, Oral, ONCE PRN, for heart rate 66 beats per minutes (bpm) or greater; Give medication as verbally directed by the provider., Starting on Mikala 02/03/24 at 0718, For 1 dose, ~LESS than or EQUAL to 55 bpm: No oral medications; ~56-60 bpm: metoprolol 25 mg; ~61-65 bpm: metoprolol 50 mg; ~66-80 bpm: metoprolol 50 mg + ivabradine 10 mg; ~GREATER than 80: metoprolol 100 mg + ivabradine 15 mg; ~ Notify Provider if Systolic Blood Pressure LESS than 100 mmHg PRIOR to giving medications, and consider calling Provider if Systolic Blood Pressure LESS than 110 mmHg if using metoprolol 100 mg. Consider if heart rate is greater than 66 bpm and further heart rate reduction is needed. May be used with metoprolol., Cardiac Intra-procedure $Given 02/03/2024 1:19 PM CDT 10 mg metoprolol tartrate (LOPRESSOR) tablet 25-100 mg 25-100 mg, Oral, ONCE PRN, for patients in whom the heart rate is 56 beats per minute (bpm) or greater and systolic blood pressure greater than 90 mm Hg, Starting on Mikala 02/03/24 at 0718, For 1 dose, If patient has not received metoprolol prior to the procedure. Administer one hour PRIOR to procedure. Dose to be given by CT nursing staff or PCU nursing staff. Discontinue after procedure. ~LESS than or EQUAL to 55 bpm: No oral medications; ~56-60 bpm: metoprolol 25 mg; ~61-65 bpm: metoprolol 50 mg; ~66-80 bpm: metoprolol 50 mg + ivabradine 10 mg; ~GREATER than 80 bpm: metoprolol 100 mg + ivabradine 15 mg; ~HOLD for systolic blood pressure less than 90 mmHg. ~ Notify Provider if Systolic Blood Pressure LESS than 100 mmHg PRIOR to giving medications, and consider calling Provider if Systolic Blood Pressure LESS than 110 mmHg if using metoprolol 100 mg. USE metoprolol (LOPRESSOR) UNLESS allergic to beta-blockers or contraindications (asthma, COPD with active wheezing, or advanced heart block). IF patient has asthma or COPD with wheezing, use diltiazem (avoid diltiazem if advanced second degree or third degree heart block), Cardiac Intra-procedure $Given 02/03/2024 1:19 PM CDT 50 mg nitroGLYcerin (NITROSTAT) sublingual tablet 0.4 mg 0.4 mg, Sublingual, EVERY 15 MIN PRN, other, Administer the first dose when the patient is on the table just before starting CT scan. As verbally ordered by the provider., Starting on Mikala 02/03/24 at 0718, For 2 doses, If there is a delay in the procedure, administer a second dose if necessary 15 minutes after the initial dose IF directed by the provider prior to the start of the exam. Hold for systolic blood pressure less than 90 mmHg - notify provider. Notify provider prior to giving medication if patient has a history of severe aortic stenosis., Cardiac Intra-procedure $Given 02/03/2024 2:24 PM CDT 0.4 mg sodium chloride (PF) 0.9% PF flush 40-100 mL 40-100 mL, Intravenous, ONCE, On Mikala 02/03/24 at 1430, For 1 dose $Given 02/03/2024 2:41 PM CDT 100 mLs documented in this encounter Care Teams Correctional Treatment Specialist Relationship Specialty Start Date End Date Shayna Feliciano MD [address] [address] PCP - General Family Medicine 10/19/23 Luis Manzo DPM [address] [facility] [address] [place] [address] Assigned Musculoskeletal Provider 11/02/23 documented as of this encounter
--- OUTSIDE RECORDS SUMMARY | 2024-03-09 14:53 | XMS_ITS | Encounter Summary ---
Author Organization [place] Address [address] [place] [address]. [place] [address] Care Team Providers Care Comprehensive Advisor Name Role Phone Shayna Feliciano MD Primary Care Provider [phone] Luis Manzo DPM Unavailable [phone] Reason for Visit * Reason Onset Date Comments Call to schedule test 12/28/2023 CT Angiogr am coronary artery Encounter Details Date Type Department Care Team (Late st Contact Info) Description 12/28/2023 [facility] [address] [place] [address] None Call to schedule test (CT Angiogram coronary artery) Social History Tobacco Use Types Packs/Day Years [...] on file documented as of this encounter Miscellaneous Notes * Telephone Encounter - Roz Wild - 12/28/2023 2:04 PM CDT [facility] Phone Message May a detailed message be left on voicemail: yes Reason for Call: Other: Patient will like to schedule CT angiogram in [place]. Patient is looking forany day in the afternoon, if possible. Will not be available on 01/07. Please call patient back to further coordinate. Action Taken: Other: Cardiology Travel Screening: Not Applicable Thank you! [facility] documented in this encounter Plan of Treatment Not on file documented as of this encounter Visit Diagnoses Not on filedocumented in this encounter Care Teams Comprehensive Advisor Relationship Specialty Start Date End Date Shayna Feliciano MD [address] [address] PCP - General Family Medicine 10/19/23 Luis Manzo DPM [id number] [address] Assigned Musculoskeletal Provider 11/02/23 documented as of this encounter
--- OUTSIDE RECORDS SUMMARY | 2024-03-09 14:53 | XMS_ITS | Encounter Summary ---
Author Organization [facility] Address [address] [place] [address]. [place] [address] Care Team Providers Care Laborer Wharf Name Role Phone Shayna Feliciano MD Primary Care Provider [phone] Luis Manzo DPM Unavailable [phone] Encounter Details Date Type Department Care Team (Latest Contact Info) Description 12/26/2023 Travel Social History Tobacco Use Types Packs/Day [...] on filedocumented in this encounter Care Teams Laborer Wharf Relationship Specialty Start Date End Date Shayna Feliciano MD [address] [address] PCP - General Family Medicine 10/19/23 Luis Manzo DPM [id number] [place] [address] [address] [place] [address] Assigned Musculoskeletal Provider 11/02/23 documented as of this encounter
--- OUTSIDE RECORDS SUMMARY | 2024-03-09 14:53 | XMS_ITS | Clinical Summary ---
Author Organization [place] Address [address] [place] [address]. [place] [address] Care Team Providers Care Air Tank Assembler Name Role Phone Shayna Feliciano MD Primary Care Provider [phone] Luis Manzo DPM Unavailable [phone] Allergies Active Allergy Reactions Criticality Noted Date [...] Date Type Department Care Team Description 02/03/2024 1:00 PM CDT - 02/03/2024 11:59 PM CDT Hospital Encounter [facility] [address] [facility] [address] [place] [phone] Shayna Feliciano MD Abnormal result of other cardiovascular function study Discharge Disposition: Home or Self Care 02/03/2024 Travel 12/28/2023 Telephone [facility] [place] [address] [facility] [address] [place] [phone] None Call to schedule test (CT Angiogram coronary artery) 12/26/2023 Travel from Last 3 Months Immunizations Name Administration [...] 10/19/2023 9:01 AM CDT Plan of Treatment Health Maintenance [...] or Tdap) 03/13/2020 03/13/2010, 07/12/1998 RSV VACCINE (1 - 1-dose 60+ series) 2021 COVID-19 Vaccine (3 - 2022- season) 2023 10/25/2020, 09/27/2020 PHQ-2 (once per calendar year) 2023 INFLUENZA VACCINE (#1) 2024 , 04/27/2022, 08/07/2020, Additional history exists DIABETIC FOOT EXAM 10/18/2024 10/19/2023 Pneumococcal Vaccine: Pediatrics (0 to 5 Years) and At-Risk Patients (6 to 64 Years) (3 of 3 - PPSV23 or PCV20) 2026 12/01/2017, 06/16/2016 HPV IMMUNIZATION Aged Out No longer e [...] BOTH BREASTS (DIAG) Routine 09/30/2004 10:48 AM BULK SUGAR HANDLER Pain in limb from Last 3 Months [...] Images were reconstructed and analyzed on a [employer] workstation. Scan protocol was optimized to minimize [...] Images were reconstructed and analyzed on a [employer] workstation. Scan protocol was optimized to minimize [...] * Creatinine POCT (02/03/2024 1:28 PM CDT) Pathologist [facility] Creatinine POCT 0.9 0.5 - 1.0 mg/dL 02/03/2024 1:30 PM CDT LABORATORY POC GFR, ESTIMATED POCT >60 >60 mL/min/1.7 3m2 02/03/2024 1:30 PM CDT LABORATORY POC Blood, venous BLOOD SPECIMEN / Unknown 02/03/2024 1:28 PM CDT 02/03/2024 1:30 PM CDT Shayna Feliciano MD LAB - BEAKER POCT LABORATORY POC [facility] Acute Care Lab [address] 1st floor, [address] [place] [address] * Basic metabolic panel (12/08/2007 7:21 AM [...] CDT) Cholesterol 235(H) 0 - 200 mg/dL [facility] Comment: Cholesterol Reference Range: <200 ??The NCEP recommends further ? evaluation of: ? 1. ??Patients with cholesterol ? greater than 200 mg/dL ? if additional risk factors ? are present. ? 2. ??All patients with a ? cholesterol greater than ? 240 mg/dL. Triglycerides 126 0 - 150 mg/dL [facility] HDL Cholesterol 43 >40 mg/dL [facility] LDL Cholesterol Calculated 167(H) 0 - 129 mg/dL [facility] VLDL-Cholesterol 25 0 - 30 mg/dL [facility] Cholesterol/HDL Ratio 5.5(H) 0.0 - 5.0 [facility] 10/20/2004 11:0 0 AM CDT 10/20/2004 11:03 AM CDT Jesi Herring MD LABORATORY [facility] * A THIN LAYER PAP SCREEN (10/20/2004 12:00 AM CDT) PAP DAXA Hall Report Patient Name: NIURKA JEFFERSON MR#: [id number] Specimen #: [id number] Collected: 10/20/2004 Received: 10/21/2004 Reported: 10/22/2004 14:35 Ordering Phy(s): JESI HERRING SPECIMEN/STAIN PROCESS: Pap thin layer prep screening ? Pap-Cyto x 1, Reflex HPV x 1 SOURCE: Cervical, endocervical Pap thin layer prep screening SPECIMEN ADEQUACY: Satisfactory for evaluation. -Transitional zone component present. CYTOLOGIC INTERPRETATION: Negative for Intraepithelial Lesion or Malignancy Electronically signed out by: DASHA Gonzalez (ASCP) Processed and screened at [facility] CLINICAL HISTORY: LMP: 10-03-04 Previous normal pap Date of Last Pap: 2001, TESTING LAB LOCATION: [address] ??[address] COLLECTION SITE: Client: ??[facility] 10/20/2004 10/21/2004 10: 22 AM CDT Jesi Herring MD LABORATORY COPATH * MAMMOGRAM, BOTH BREASTS (DIAG) (09/30/2004 10:48 AM BULK SUGAR HANDLER) Anatomical Region Laterality Modality Other 09/30/2004 10:4 8 AM BULK SUGAR HANDLER Impressions 10/01/2004 3:22 PM BULK SUGAR HANDLER DIAGNOSTIC MAMMOGRAM, BILATERAL AND BREAST ULTRASOUND, RIGHT [...] Recently Relevant to Health Maintenance Care Teams Air Tank Assembler Relationship Specialty Start Date End Date Shayna Feliciano MD [facility] [address] [place] [address] PCP - General Family Medicine 10/19/23 [place] [address] [facility] [address] [place] [address] Assigned Musculoskeletal Provider 11/02/23
== END 2024-03-09 14:51 | disposition home or self-care (01) ==
LOC: NFLDREF 14:51
PROVIDERS: PCP Family Medicine; Visit Provider Internal Medicine Cardiovascular Disease
DX: E78.5 Hyperlipidemia, unspecified (principal)
CPT/HCPCS: 83695

== ENCOUNTER 2024-03-24 22:42 | Outpatient (REF) | payer BC, SELFPAY ==
--- OUTSIDE RECORDS SUMMARY | 2024-03-24 22:45 | XMS_ITS | Clinical Summary ---
Author Organization [place] Address [address] [place] [address]. [place] [address] Care Team Providers Care Photo Mask Processor Name Role Phone Shayna Feliciano MD Primary Care Provider [phone] Luis Manzo DPM Unavailable [phone] Allergies Active Allergy Reactions Criticality Noted Date [...] 02/03/2024 11:59 PM CDT Hospital Encounter M [facility] Heart Care [address] [facility] [address] [place] [phone] Shayna Feliciano MD Abnormal result of other cardiovascular function study Discharge Disposition: Home or Self Care 02/03/2024 Travel 12/28/2023 Telephone [facility] [place] [address] [facility] [address] [place] [phone] None Call to schedule test (CT Angiogram [...] 03/13/2020 03/13/2010, 07/12/1998 RSV VACCINE (1 - Risk 60-74 years 1-dose series) 2021 PHQ-2 (once per calendar year) 2023 COVID-19 Vaccine (3 - 2022- season) 2024 10/25/2020, 09/27/2020 INFLUENZA VACCINE (#1) 2024 , 04/27/2022, 08/07/2020, [...] BOTH BREASTS (DIAG) Routine 09/30/2004 10:48 AM CONSTRUCTION ESTIMATOR Pain in limb from Last 3 Months [...] Images were reconstructed and analyzed on a [employer] workstation. Scan protocol was optimized to minimize [...] MD Procedure Note Liborio Montoya MD - 07/25/2024 Procedure: CTA ANGIOGRAM CORONARY ARTERY Examination Date: [...] Images were reconstructed and analyzed on a [employer] workstation. Scan protocol was optimized to minimize [...] Creatinine POCT (02/03/2024 1:28 PM CDT) Pathologist [facility] Creatinine POCT 0.9 0.5 - 1.0 mg/dL 02/03/2024 1:30 PM CDT LABORATORY POC GFR, ESTIMATED POCT >60 >60 mL/min/1.7 3m2 02/03/2024 1:30 PM CDT LABORATORY POC Blood, venous BLOOD SPECIMEN / Unknown 02/03/2024 1:28 PM CDT 02/03/2024 1:30 PM CDT Shayna Feliciano MD LAB - BEAKER POCT LABORATORY POC [facility] Acute Care Lab [address] 1st floor, [address] [place] [address], [facility] * Basic metabolic panel (12/08/2007 7:21 AM CDT) Pathologist [facility] Sodium 139 133 - 144 mmol/L MISYS [...] CDT) Cholesterol 235(H) 0 - 200 mg/dL [facility] Comment: Cholesterol Reference Range: <200 ??The NCEP recommends further ? evaluation of: ? 1. ??Patients with cholesterol ? greater than 200 mg/dL ? if additional risk factors ? are present. ? 2. ??All patients with a ? cholesterol greater than ? 240 mg/dL. Triglycerides 126 0 - 150 mg/dL [facility] HDL Cholesterol 43 >40 mg/dL [facility] LDL Cholesterol Calculated 167(H) 0 - 129 mg/dL [facility] VLDL-Cholesterol 25 0 - 30 mg/dL [facility] Cholesterol/HDL Ratio 5.5(H) 0.0 - 5.0 [facility] 10/20/2004 11:0 0 AM CDT 10/20/2004 11:03 AM CDT Jesi Herring MD LABORATORY Performing Organization Address City/[facility]/ZIP Co de Phone Number [facility] * A THIN LAYER PAP SCREEN (10/20/2004 12:00 AM CDT) PAP DAXA Hall Report Patient Name: NIURKA JEFFERSON MR#: [id number] Specimen #: [id number] Collected: 10/20/2004 Received: 10/21/2004 Reported: 10/22/2004 14:35 Ordering Phy(s): JESI HERRING SPECIMEN/STAIN PROCESS: Pap thin layer prep screening ? Pap-Cyto x 1, Reflex HPV x 1 SOURCE: Cervical, endocervical Pap thin layer prep screening SPECIMEN ADEQUACY: Satisfactory for evaluation. -Transitional zone component present. CYTOLOGIC INTERPRETATION: Negative for Intraepithelial Lesion or Malignancy Electronically signed out by: DASHA Gonzalez (ASCP) Processed and screened at [facility] CLINICAL HISTORY: LMP: 10-03-04 Previous normal pap Date of Last Pap: 2001, TESTING LAB LOCATION: [address] ??[phone] COLLECTION SITE: Client: ??[facility] 10/20/2004 10/21/2004 10: 22 AM CDT Jesi Herring MD LABORATORY COPATH * MAMMOGRAM, BOTH BREASTS (DIAG) (09/30/2004 10:48 AM CONSTRUCTION ESTIMATOR) Anatomical Region Laterality Modality Other 09/30/2004 10:4 8 AM CONSTRUCTION ESTIMATOR Impressions 10/01/2004 3:22 PM CONSTRUCTION ESTIMATOR DIAGNOSTIC MAMMOGRAM, BILATERAL AND BREAST ULTRASOUND, RIGHT [...] Recently Relevant to Health Maintenance Care Teams Photo Mask Processor Relationship Specialty Start Date End Date Shayna Feliciano MD [address] [address] PCP - General Family Medicine 10/19/23 Luis Manzo DPM [address] [place] [address] [address] [place] [address] Assigned Musculoskeletal Provider 11/02/23
--- OUTSIDE RECORDS SUMMARY | 2024-03-24 22:46 | XMS_ITS | Encounter Summary ---
Author Organization [facility] Address [address] [place] [address]. [place] [address] Care Team Providers Care Metal Leaf Layer Name Role Phone Shayna Feliciano MD Primary Care Provider [phone] Luis Manzo DPM Unavailable [phone] Encounter Details Date Type Department Care Team [...] on filedocumented in this encounter Care Teams Metal Leaf Layer Relationship Specialty Start Date End Date Shayna Feliciano MD [address] [address] PCP - General Family Medicine 10/19/23 Luis Manzo DPM [id number] [place] [address] [address] [place] [address] Assigned Musculoskeletal Provider 11/02/23 documented as of this encounter
--- OUTSIDE RECORDS SUMMARY | 2024-03-24 22:46 | XMS_ITS | Clinical Summary ---
Author Organization [employer] [facility] [employer] Address [place], [place] [address] Care Team Providers Care Public Relations Writer Name Role Phone Shayna Feliciano MD Primary Care Provider [phone] Allergies Active Allergy Reactions Criticality Noted Date [...] Encounters Date Type Department Care Team Description 03/22/2024 Telephone [facility] [address] [place] [address] Gee Sumner MD Results (Lpa) 03/15/2024 Orders Only [facility] [address] [place] [address] Debbie Hung 1 scan: (1-Ord) Lipoprotein from [place] 03/09/2024 2:00 PM CDT Office Visit [facility] [address] [place] [address] Gee Sumner MD from Last 3 Months Social History Tobacco Use Types Packs/Day Years Used Date Smoking Tobacco: Former Cigarettes Smokeless Tobacco: Never Tobacco Cessation:Counseling Given: Not Answered Alcohol Use Standard Drinks/Week Comments Not Asked 0 (1 standard drink = 0.6 oz pur e alcohol) Social Connections Answer Date Recorded Frequency of Communication with Friends and Fami ly Not on file 03/09/2024 Sex and Gender Information Value Date Recorded [...] (1 of 2) 2011 COVID-19 vaccine series (2022- season) 2024 10/25/2020, 09/27/2020 Influenza for age 50-64 03/12/2024 Pneumococcal series for age 6-64 Aged Out No longer eligible b ased on patient's age to complete this topic Procedures Procedure Name Priority Date/Time Associated Diagnosis Comments LIPOPROTEIN A Routine 03/09/2024 Arteriosclerotic cardiovascular disease (ASCVD) from Last 3 Months Results * LIPOPROTEIN A (03/09/2024) Blood BLOOD SPECIMEN / Unknown 03/09/2024 Gee Sumner MD SEND OUTS from Last 3 Months Care Teams Public Relations Writer Relationship Specialty Start Date End Date Shayna Feliciano MD PCP - General 08/18/22
--- OUTSIDE RECORDS SUMMARY | 2024-03-24 22:46 | XMS_ITS | Referral Summary ---
Author Organization [place] Address [address] [place] [address]. [place] [address] Care Team Providers Care Co Founder And Chief Strategy Officer Name Role Phone Shayna Feliciano MD Primary Care Provider [phone] Luis Manzo DPM Unavailable [phone] Encounters Date Type Department Care Team Description 02/03/2024 Travel 02/03/2024 1:00 PM CDT - 02/03/2024 11:59 PM CDT Hospital Encounter [facility] [address] [place] [id number] Shayna Feliciano MD Abnormal result of other cardiovascular function study Discharge Disposition: Home or Self Care 12/28/2023 Telephone [facility] [address] [place] [id number] None Call to schedule test (CT Angiogram [...] BOTH BREASTS (DIAG) Routine 09/30/2004 10:48 AM RELAY SHOP SUPERVISOR Pain in limb from Last 3 Months [...] Images were reconstructed and analyzed on a itsDapper workstation. Scan protocol was optimized to minimize [...] Images were reconstructed and analyzed on a itsDapper workstation. Scan protocol was optimized to minimize [...] MD LAB - BEAKER POCT LABORATORY POC [facility] [address] 1st floor, Room [address] [place] [address] * Basic metabolic panel [...] - BLOOD ORDERABL ES Performing Organization Address [facility]/ZIP Co de Phone Number MISYS * (ABNORMAL) A.M.A. LIPID PANEL (10/20/2004 11:00 AM CDT) Cholesterol 235(H) 0 - 200 mg/dL [facility] Comment: Cholesterol Reference Range: <200 ??The NCEP recommends further ? evaluation of: ? 1. ??Patients with cholesterol ? greater than 200 mg/dL ? if additional risk factors ? are present. ? 2. ??All patients with a ? cholesterol greater than ? 240 mg/dL. Triglycerides 126 0 - 150 mg/dL [facility] HDL Cholesterol 43 >40 mg/dL [facility] LDL Cholesterol Calculated 167(H) 0 - 129 mg/dL [facility] VLDL-Cholesterol 25 0 - 30 mg/dL [facility] Cholesterol/HDL Ratio 5.5(H) 0.0 - 5.0 [facility] 10/20/2004 11:0 0 AM CDT 10/20/2004 11:03 AM CDT Jesi Herring MD LABORATORY Performing Organization Address [facility] de Phone Number [facility] * A THIN LAYER PAP SCREEN (10/20/2004 12:00 AM CDT) PAP DAXA Hall Report Patient Name: NIURKA JEFFERSON MR#: [id number] Specimen #: [id number] Collected: 10/20/2004 Received: 10/21/2004 Reported: 10/22/2004 14:35 Ordering Phy(s): JESI HERRING SPECIMEN/STAIN PROCESS: Pap thin layer prep screening ? Pap-Cyto x 1, Reflex HPV x 1 SOURCE: Cervical, endocervical Pap thin layer prep screening SPECIMEN ADEQUACY: Satisfactory for evaluation. -Transitional zone component present. CYTOLOGIC INTERPRETATION: Negative for Intraepithelial Lesion or Malignancy Electronically signed out by: DASHA Gonzalez (ASCP) Processed and screened at [facility] CLINICAL HISTORY: LMP: 10-03-04 Previous normal pap Date of Last Pap: 2001, TESTING LAB LOCATION: [facility] [address] [place], [place] ??[phone] COLLECTION SITE: Client: ??[facility] Location: [facility] (R) COPATH 10/20/2004 10/21/2004 10: 22 AM CDT Jesi Herring MD LABORATORY COPATH * MAMMOGRAM, BOTH BREASTS (DIAG) (09/30/2004 10:48 AM RELAY SHOP SUPERVISOR) Anatomical Region Laterality Modality Other 09/30/2004 10:4 8 AM RELAY SHOP SUPERVISOR Impressions 10/01/2004 3:22 PM RELAY SHOP SUPERVISOR DIAGNOSTIC MAMMOGRAM, BILATERAL AND BREAST ULTRASOUND, RIGHT [...] Recently Relevant to Health Maintenance Care Teams Co Founder And Chief Strategy Officer Relationship Specialty Start Date End Date Shayna Feliciano MD [address] [id number] PCP - General Family Medicine 10/19/23 Luis Manzo DPM [address] [place] [address] Assigned Musculoskeletal Provider 11/02/23
--- OUTSIDE RECORDS SUMMARY | 2024-03-24 22:46 | XMS_ITS | Encounter Summary ---
Author Organization [facility] Address [address] [place] [address]. [place] [address] Care Team Providers Care Dials Supervisor Name Role Phone Shayna Feliciano MD Primary Care Provider [phone] Luis Manzo DPM Unavailable [phone] Reason for Visit * Reason Onset Date Comments Call to schedule test 12/28/2023 CT Angiogr am coronary artery Encounter Details Date Type Department Care Team (Late st Contact Info) Description 12/28/2023 [facility] [address] [place] [address] None Call to schedule test [...] Roz Wild - 12/28/2023 2:04 PM CDT [facility] Phone Message May a detailed message be left on voicemail: yes Reason for Call: Other: Patient will like to schedule CT angiogram in [place]. Patient is looking forany day in the afternoon, if possible. Will not be available on 01/07. Please call patient back to further coordinate. Action Taken: Other: Cardiology Travel Screening: Not Applicable Thank you! [facility] documented in this encounter Plan of Treatment Not on file documented as of this encounter Visit Diagnoses Not on filedocumented in this encounter Care Teams Dials Supervisor Relationship Specialty Start Date End Date Shayna Feliciano MD [address] [address] PCP - General Family Medicine 10/19/23 Luis Manzo DPM [address] [address] Assigned Musculoskeletal Provider 11/02/23 documented as of this encounter
--- OUTSIDE RECORDS SUMMARY | 2024-03-24 22:46 | XMS_ITS | Encounter Summary ---
Author Organization [facility] Address [address] [place] [address] Care Team Providers Care Sanitation Superintendent Name Role Phone Shayna Feliciano MD Primary Care Provider [phone] Luis Manzo DPM Unavailable [phone] Reason for Referral * Diagnostic Imaging CT Scan (Routine) - Closed Specialty Diagnoses / Procedures Referred By Contac t Referred To Contact Radiology. Diagnoses Abnormal result of other cardiovascular function study Procedures CT Angiogram coronary artery CT Coronary Calcium Scan Shayna Feliciano MD [address] [address] [address] Scan [address] [place] [address] Referral ID Status Reason Start Date Expiration Date Visits Re quested Visits Authorized [id number] Closed 10/12/2023 10/11/2024 1 1 * Diagnostic Imaging XR (Routine) - Pending Review Specialty Diagnoses / Procedures Referred By Contac t Referred To Contact Radiology. Diagnoses Abnormal result of other cardiovascular function study Procedures Radiologist Consult For Cardiology Shayna Feliciano MD [address] [address] Referral ID Status Reason Start Date Expiration Date V isits Requested Visits Authorized [id number] Pending Review 12/28/2023 12/27/2024 1 1 Reason for Visit * Diagnostic Imaging CT Scan (Routine) - Closed Specialty Diagnoses / Procedures Referred By Contac t Referred To Contact Radiology. Diagnoses Abnormal result of other cardiovascular function study Procedures CT Angiogram coronary artery CT Coronary Calcium Scan Shayna Feliciano MD [facility] [address] [place] [address] [address] Scan [address] [facility] [address] Referral ID Status Reason Start Date Expiration Date Visits Re quested Visits Authorized [id number] Closed 10/12/2023 10/11/2024 1 1 Encounter Details Date Type Department Care Team (Latest Contact Info) Description 02/03/2024 1:00 PM CDT - 02/03/2024 11:59 PM CDT Hospital Encounter [facility] [address] [place] [address] Shayna Feliciano MD [facility] [address] [place] [address] Abnormal result of other cardiovascular function [...] Images were reconstructed and analyzed on a [employer] workstation. Scan protocol was optimized to minimize [...] Images were reconstructed and analyzed on a [employer] workstation. Scan protocol was optimized to minimize [...] 50-69% stenosis Severe: 70-99% stenosis Obstructive LIBORIO ZAMOAR MD Shayna Feliciano MD IMG CT ORDERABLES [...] LAB - BEAKER POCT LABORATORY POC [facility] [address] floor, [address] [place] [address] documented in this encounter Visit Diagnoses Diagnosis Abnormal result of other cardiovascular function study documented in this encounter Administered Medications Inactive Administered Medications - up to 3 most recent administrations Medication Order MAR Action Action Date Dose Rate Site iopamidol (ISOVUE-370) solution 500 mL 500 mL, Intravenous, ONCE, On Mikala 02/03/24 at [...] mLs documented in this encounter Care Teams Sanitation Superintendent Relationship Specialty Start Date End Date Shayna Feliciano MD [address] [address] PCP - General Family Medicine 10/19/23 [place] Manzo [place] [address] [facility] [address] [place] [address] Assigned Musculoskeletal Provider 11/02/23 documented as of this encounter
--- OUTSIDE RECORDS SUMMARY | 2024-03-24 22:46 | XMS_ITS | Encounter Summary ---
Author Organization [facility] Address [address] [place] [address]. [place] [address] Care Team Providers Care Air Valve Mechanic Name Role Phone Shayna Feliciano MD Primary Care Provider [phone] Luis Manzo DPM Unavailable [phone] Encounter Details Date Type Department Care Team [...] on filedocumented in this encounter Care Teams Air Valve Mechanic Relationship Specialty Start Date End Date Shayna Feliciano MD [address] [address] PCP - General Family Medicine 10/19/23 Luis Manzo DPM [id number] [place] [address] [address] [place] [address] Assigned Musculoskeletal Provider 11/02/23 documented as of this encounter
[2024-03-25 03:01] LABS: Basophils Absolute Auto 0.04 K/uL (0.00-0.30); Basophils Percent Auto 0.7 % (0.0-3.0); Eosinophils Percent Auto 3.5 % (0.0-7.0); Hematocrit 40.8 % (33.0-51.0); Hemoglobin* 12.8 gm/dL (12.0-16.0); Immature Granulocytes Abs Auto 0.02 K/uL (0.00-0.30); Immature Granulocytes Pct Auto 0.4 %; Lymphocytes Absolute Auto 1.52 K/uL (0.90-2.90); Lymphocytes Percent Auto 26.7 % (20-44); Mean Corpuscular HGB Conc 31 gm/dL (32-36); Mean Corpuscular Hemoglobin 28 pg (26-34); Mean Corpuscular Volume 91 fL (80-100); Monocytes Percent Auto 8.8 % (0.0-11.0); Neutrophils Absolute Auto 3.42 K/uL (1.7-7.0); Neutrophils Percent Auto 59.9 % (42.0-72.0); Platelet Count* 298 K/uL (140-440); RDW Coefficient of Variation % 14.4 % (11.5-15.5); Red Blood Count 4.51 m/uL (4.00-5.20)
[2024-03-25 03:28] LABS: Vitamin D 25 Hydroxy* 24 ng/mL (30-80)
[2024-03-25 03:43] LABS: Thyroid Stimulating Hormone* 0.918 uIU/mL (0.270-4.20)
[2024-03-25 03:47] LABS: Ferritin* 13.3 ng/mL (11.1-264.0)
[2024-03-25 04:01] LABS: Vitamin B12* 222 pg/mL (243-894)
[2024-03-25 04:03] LABS: Slide Review Reflex No
[2024-03-26 11:34] LABS: Zinc, Serum/Plasma 75.7 ug/dL (60.0-120.0)
[2024-03-26 23:55] LABS: Anti-Nuclear Ab(ANA)IgG ELISA None Detected (None Detected)
[2024-03-31 16:01] LABS: Androstenedione by TMS 0.193 ng/mL (0.130-0.820)
[2024-03-31 16:04] LABS: Sex Hormone Binding Globulin 16 nmol/L (17-125); Testosterone, Free LC-MS/MS 1.6 pg/mL (0.6-3.8); Testosterone, LC-MS/MS 7 ng/dL (5-32)
== END 2024-03-24 22:43 | disposition home or self-care (01) ==
LOC: NPINS 22:42
PROVIDERS: PCP Family Medicine; Visit Provider Physician Assistant
DX: L65.9 Nonscarring hair loss, unspecified (principal); L21.8 Other seborrheic dermatitis; L29.8 Other pruritus; L40.0 Psoriasis vulgaris
CPT/HCPCS: 82157; 82306; 82607; 82728; 84270; 84402; 84403; 84443; 84630; 85025; 86039

== ENCOUNTER 2024-07-03 19:04 | Emergency (ER) | payer BC, SELFPAY ==
[2024-07-03 19:15] VITALS: BP 190/80; PULSE 73; RESP 18; TEMP 37.1; O2SAT 96
--- NOTE | 2024-07-03 20:28 | ED.GENADULT ---
HPI - General Adult General Time Seen by Provider: 20:28 Date Seen: 07/03/24 Chief complaint: Extremity Pain/Injury, Lower Stated complaint: R side hip pain Time Seen by Provider: 07/03/24 20:23 Source: patient and RN notes reviewed Mode of arrival: ambulatory Limitations: no limitations History of Present Illness HPI narrative: This 64-year-old female is coming in with severe right hip and low back pain. This pain shoot down the back of her leg to her knee. She woke up with it around 4:00 a.m. this morning. She has not been ill with anything, no fevers or chills, no trauma. She did go to her chiropractor this morning and after being adjusted, pain was much worse. She did try [id number] medicines and tizanidine, at least she believes the muscle relaxant she was given is tizanidine. Nothing is helping. She states she has been to this chiropractor before and had no problems. She wonders if something got broke off during knee adjustment. She is pointing to her pain along the right SI joint, right low back. She still has control of bowel and bladder. Walking, sitting hurt. She has difficulty finding comfort lying down. There is no numbness tingling in the leg. She does have a history of low back pain. Related Data Home Medications ?Medication ?Instructions ?Recorded ?Confirmed acetaminophen 325 mg tablet 650 mg PO Q4H PRN 01/27/22 07/03/24 coenzyme Q10 30 mg capsule (Co 30 mg PO QDAY 01/29/22 07/03/24 Q-10) multivitamin 1 tab PO QAM 01/29/22 07/03/24 fluticasone furoate 200 1 inh inhalation DAILY 06/25/22 06/21/24 mcg-vilanterol 25 mcg/dose inhalation powder aspirin 81 mg tablet,delayed 81 mg PO QDAY 05/11/23 07/03/24 release clobetasol 0.05 % scalp solution topical BID 04/13/24 06/21/24 clobetasol 0.05 % topical ointment topical .ud 04/13/24 06/21/24 hydrocortisone 2.5 % topical topical .ud 04/13/24 06/21/24 ointment ketoconazole 2 % shampoo topical DAILY 04/13/24 06/21/24 melatonin 3 mg capsule 15 mg PO QHS PRN 04/13/24 07/03/24 cholecalciferol (vitamin D3) 1,250 1,250 mcg PO DAILY 05/19/24 07/03/24 mcg (50,000 unit) capsule clobetasol 0.05 % topical cream 1 applic topical QDAY 05/19/24 06/21/24 iron,carbonyl 65 mg-vitamin C 125 1 tab PO QDAY 05/19/24 07/03/24 mg tablet,delayed release (Vitron-C) semaglutide 0.25 mg or 0.5 mg (2 mg subcut 05/19/24 06/21/24 mg/3 mL) subcutaneous pen injector (Ozempic) Previous Rx's ?Medication ?Instructions ?Recorded fluoxetine 40 mg capsule 40 mg PO QAM #90 caps 05/11/23 buspirone 5 mg tablet 5 mg PO BID #90 tabs 10/04/23 lisinopril 20 mg tablet 20 mg PO DAILY #90 tabs 10/27/23 rosuvastatin 10 mg tablet 10 mg PO QHS #90 tabs 10/27/23 cyclobenzaprine 5 mg tablet 5 mg PO QHS PRN muscle spasm #10 05/19/24 tabs albuterol sulfate 90 mcg/actuation 2 inh inhalation Q4-6H PRN 05/22/24 aerosol inhaler bronchospasm #8.5 grams omeprazole 40 mg capsule,delayed 40 mg PO DAILY #90 caps 05/22/24 release bupropion HCl 300 mg 24 hr tablet, 300 mg PO QAM #90 tabs 06/14/24 extended release (Wellbutrin XL) albuterol sulfate 2.5 mg/3 mL 2.5 mg (3 mL) inhalation Q4H PRN 06/23/24 (0.083 %) solution for nebulization shortness of breath or wheezing #90 mL Allergies Allergy/AdvReac Type Severity Reaction Status Date / Time azithromycin Allergy Intermediate Light Verified 07/03/24 19:14 Headed hydromorphone Allergy Intermediate Itchy Verified 07/03/24 19:14 lactose Allergy Intermediate Diarrhea Verified 07/03/24 19:14 zolpidem Allergy Intermediate Fatigue & Verified 07/03/24 19:14 Vertigo Cephalosporins Allergy Mild Nausea/Vomi Verified 07/03/24 19:14 ting codeine Allergy Mild N-V Verified 07/03/24 19:14 penicillin V Allergy Mild Hives Verified 07/03/24 19:14 nitrofurantoin Allergy Unknown itchy? Verified 07/03/24 19:14 atorvastatin AdvReac Mild myalgia Verified 07/03/24 19:14 Review of Systems Narrative: See HPI. PFSH PFSH Medical History CLAUDIA (obstructive sleep apnea) ?G47.33 - Obstructive sleep apnea (adult) (pediatric) (ICD-10) COPD (chronic obstructive pulmonary disease) ?J44.9 - Chronic obstructive pulmonary disease, unspecified (ICD-10) Anxiety ?F41.9 - Anxiety disorder, unspecified (ICD-10) Hypertension ?I10 - Essential (primary) hypertension (ICD-10) Osteoarthritis ?M19.90 - Unspecified osteoarthritis, unspecified site (ICD-10) GERD (gastroesophageal reflux disease) ?K21.9 - Gastro-esophageal reflux disease without esophagitis (ICD-10) History of open sigmoidectomy (08/23/12) ?Z98.890 - Other specified postprocedural states (ICD-10) ?Z90.49 - Acquired absence of other specified parts of digestive tract (ICD-10) 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 (ICD-10) Mild intermittent asthma (07/24/11) ?J45.20 - Mild intermittent asthma, uncomplicated (ICD-10) Surgical History H/O laparoscopy (03/10/12) ?Z98.890 - Other specified postprocedural states (ICD-10) Status post tonsillectomy ?Z90.89 - Acquired absence of other organs (ICD-10) Status post appendectomy (~02/2012) ?Z90.49 - Acquired absence of other specified parts of digestive tract (ICD-10) History of laparoscopic cholecystectomy (03/10/12) ?Z90.49 - Acquired absence of other specified parts of digestive tract (ICD-10) History of hysterectomy (05/20/06) ?Z90.710 - Acquired absence of both cervix and uterus (ICD-10) History of carpal tunnel surgery (~1989) ?Z98.890 - Other specified postprocedural states (ICD-10) Family History Brother Aneurysm Lung cancer Maternal Grandmother Colorectal cancer Father CHF (congestive heart failure) Coronary artery disease Diabetes Mother Coronary artery disease Stroke Depression Diabetes High blood pressure Rheumatic fever Social History Narrative: Does not drink alcohol Does not use illicit drugs Smoker- 0.5 packs per day Smoking Status: Former smoker Do you use any of these nicotine containing products: None Second hand tobacco smoke exposure: Yes How often do you have a drink containing alcohol: monthly or less AUDIT-C Alcohol total score: 1 Non-prescribed substance use: denies use Exam Const: Vital Signs, click to edit/add: Vital Signs - 24 hr 07/03/24 19:15 Temperature 98.7 F Pulse Rate [Femora l] 73 Respiratory Rate 18 Blood Pressure [Ri ght Upper Arm] 190/80 H Pulse Oximetry 96 Oxygen Delivery Me thod Room Air This 64-year-old female is lying in the bed an exam 6, head is elevated about 30-40 degrees. She is alert, interactive, no apparent distress. By habitus is obese. She has no pain on palpation of the right greater trochanter, internal external rotation of her hip do not give her hip pain. Both legs are thicker but no pitting edema. She has normal light touch sensation down to her extremities through the toes. Toe flexion extension, ankle flexion extension, strength about the knee and hip are preserved. Having her try to lift her right leg off the bed does increase her pain in the right low back area. She has negative straight leg raising when I lift her legs up. No midline tenderness of her lumbar spine. Her pain seems to be isolated somewhat over the right SI joint and the low back area above that. Note no skin changes. Documenting provider has reviewed patient's vital signs: yes Course Course ED Course: Reviewed with patient that I cannot do MRI imaging at this time nor do I feel it is clinically indicated. She is quite worried that the adjustment actually harmed her back. We can do imaging of her lumbar spine for her. Her history and exam seem to be consistent with a lumbar radiculopathy. Did review with her that the manipulation might have just increased inflammation around the nerve root. She is prediabetic, not diabetic. We discussed prednisone is likely the medicine we will be giving her. Will do CT imaging just to ensure no pathology. Reevaluation(s) Time of Reevaluation #1: 22:20 Reevaluation #1: Have reviewed patient's CT report with her. She does have significant degenerative changes, symptoms very likely are stemming from radiculopathy. Also went over the spinal stenosis that she is developing. I do think that she should get an MRI of her lumbar spine, this can be done outpatient through clinic, is not needed emergently. She is requesting some Toradol tonight, will discharge with prescription for prednisone. Will give her a few tablets of oxycodone which she has tolerated before. She really does not like narcotics but we have discussed having on hand for pain management if needed until the prednisone is working. Vital Signs Vital signs: Initial Vital Signs Temperature 98.7 F 07/03/24 19:15 Temperature Source Temporal Artery Scan 07/03/24 19:15 Pulse Rate 73 07/03/24 19:15 Pulse Rhythm Regular 07/03/24 19:15 Respiratory Rate 18 07/03/24 19:15 Blood Pressure 190/80 H 07/03/24 19:15 Blood Pressure Mean 116 H 07/03/24 19:15 Blood Pressure Position Sitting 07/03/24 19:15 Pulse Oximetry 96 07/03/24 19:15 Oxygen Delivery Method Room Air 07/03/24 19:15 Vital Signs Temperature 98.7 F 07/03/24 19:15 Pulse Rate 73 07/03/24 19:15 Respiratory Rate 18 07/03/24 19:15 Blood Pressure 190/80 H 07/03/24 19:15 Pulse Oximetry 96 07/03/24 19:15 Oxygen Delivery Method Room Air 07/03/24 19:15 Temperature 98.7 F 07/03/24 19:15 Pulse Rate 73 07/03/24 19:15 Respiratory Rate 18 07/03/24 19:15 Blood Pressure 190/80 H 07/03/24 19:15 Pulse Oximetry 96 07/03/24 19:15 Oxygen Delivery Method Room Air 12/23/24 19:15 Medical Decision Making Imaging Data CT- Other: Attestation: I have reviewed the pertinent imaging results. Radiologist's impression: Patient: VERONIKA JEFFERSON Facility:?[facility] Patient ID:?[id number] Site Patient ID:?[id number]. Site :?[id number] Study:?CT-Spine Lumbar W/O-07/03/2024 9:16:35 PM Ordering Physician:Lena Milligan Final Report: INDICATION: Increased right-sided back/sacral pain following chiropractic adjustment. TECHNIQUE: CT lumbar spine without contrast. COMPARISON: CT abdomen and pelvis 06/20/2019. FINDINGS: No definite acute fracture. No suspicious osseous lesion. Probable sacral bone island is noted. The lumbar vertebral bodies grossly maintain their normal heights with preserved lordosis. There is mild retrolisthesis at L3-L4, L4-L5, and L5-S1. Multilevel Schmorl`s node formation is noted throughout the superior endplates of the lumbar spine. Endplate osteophyte formation is noted most prominent throughout the lower lumbar spine. Multilevel degenerative disc disease with advanced disc space height loss at L4-L5 and L5-S1. Multilevel facet arthropathy most advanced at L4-L5 and L5-S1 and slightly more prominent on the right. Bilateral sacroiliac arthrosis Advanced spinal canal stenosis at L4-L5 in setting of disc protrusion. Multilevel foraminal narrowing, most prominent on the right at L4-L5 and bilaterally at L5-S1. Paraspinal soft tissues are grossly within normal limits. No acute or suspicious intra-abdominal/pelvic abnormality identified. There are atherosclerotic calcifications of the aorta. IMPRESSION: 1. No definite acute fracture appreciated. If clinical concern for acute fracture is high, recommend further evaluation with MRI. 2. Multilevel spondylosis and degenerative disc disease with advanced disc space height loss at L4-L5 and L5-S1. 3. Advanced spinal canal stenosis at L4-L5 in setting of disc protrusion. Multilevel foraminal narrowing, most prominent on the right at L4-L5 and bilaterally at L5-S1. This can be better evaluated with MRI. Please note that all CT scans at this facility use dose modulation, iterative reconstruction, and/or weight-based dosing when appropriate to reduce radiation dose to as low as reasonably achievable. Dictated by Rene Auguste MD @ 07/03/2024 9:50:55 PM (Electronic Signature) Discharge Plan Discharge Clinical Impression: Acute right lumbar radiculopathy Patient Disposition: Home, Self-Care Condition: Stable Instructions: Lumbar Spinal Stenosis (ED), Lumbar Radiculopathy (ED) Additional Instructions: Need to follow up in clinic with your primary care provider as soon as you are able to. I do think with the CT findings, would proceed to lumbar MRI for further evaluation. Take the prednisone 20 mg twice a day for 5 days, take with food to protect your stomach. Have given 4 tablets of 5 mg oxycodone to be used every 6 hours if needed for more severe pain. Use Tylenol 1000 mg 3 times a day baseline for pain. Can supplement with ibuprofen per bottle directions as needed, maximal dosing would be 800 mg 3 times a day. Can use the muscle relaxant you have per prescription instructions. Review handouts. If there are any development of warning findings as outlined in the handouts, need to be re-evaluated. Activity Level: Activity as Tolerated Prescriptions: No Action aspirin 81 mg tablet,delayed release (DR/EC) 81 mg PO QDAY fluoxetine 40 mg capsule 40 mg PO QAM Qty: 90 3RF melatonin 3 mg capsule 15 mg PO QHS PRN Patient Comments: unsure of strength acetaminophen 325 mg tablet 650 mg PO Q4H PRN Rx Instructions: NO MORE THAN 4000 MG/DAY coenzyme Q10 [Co Q-10] 30 mg capsule 30 mg PO QDAY multivitamin Tablet 1 tab PO QAM buspirone 5 mg tablet 5 mg PO BID Qty: 90 3RF clobetasol 0.05 % solution topical BID clobetasol 0.05 % ointment topical .ud hydrocortisone 2.5 % ointment topical .ud Patient Comments: APPLY ON EARS TWO TIMES A DAY FOR UP TO 2 WEEKS AT A TIME. THEN TAKE 2 WEEKS OFF. REPEAT NEEDED FOR FLARES. ketoconazole 2 % shampoo topical DAILY clobetasol 0.05 % cream 1 applic topical QDAY Vitron-C 65 mg iron- 125 mg tablet,delayed release (DR/EC) 1 tab PO QDAY cholecalciferol (vitamin D3) 1,250 mcg (50,000 unit) capsule 1,250 mcg PO DAILY Ozempic 0.25 mg or 0.5 mg (2 mg/3 mL) pen injector subcut cyclobenzaprine 5 mg tablet 5 mg PO QHS PRN (Reason: muscle spasm) Qty: 10 0RF fluticasone furoate-vilanterol 200-25 mcg/dose blister with device 1 inh INHALATION DAILY Patient Comments: INHALE ONE PUFF ONCE DAILY AT THE SAME TIME EACH DAY lisinopril 20 mg tablet 20 mg PO DAILY Qty: 90 3RF rosuvastatin 10 mg tablet 10 mg PO QHS Qty: 90 3RF omeprazole 40 mg capsule,delayed release(DR/EC) 40 mg PO DAILY Qty: 90 0RF albuterol sulfate 90 mcg/actuation HFA aerosol inhaler 2 inh inhalation Q4-6H PRN (Reason: bronchospasm) Qty: 8.5 2RF bupropion HCl [Wellbutrin XL] 300 mg tablet extended release 24 hr 300 mg PO QAM Qty: 90 1RF albuterol sulfate 2.5 mg /3 mL (0.083 %) solution for nebulization 2.5 mg inhalation Q4H PRN (Reason: shortness of breath or wheezing) Qty: 90 0RF Follow Up/Referrals: Shayna Feliciano MD [Primary Care Provider] - Stand Alone Forms: [email or web address] Info Instructions
--- NOTE | 2024-07-03 20:34 | CRLHL7_ITS ---
For Patients: As a result of the Century Cures Act, medical imaging exams and procedure reports are released immediately into your electronic medical record. You may view this report before your referring provider. If you have questions, please contact your health care provider. INDICATION: Increased right-sided back/sacral pain following chiropractic adjustment. TECHNIQUE: CT lumbar spine without contrast. COMPARISON: CT abdomen and pelvis 06/20/2019. FINDINGS: No definite acute fracture. No suspicious osseous lesion. Probable sacral bone island is noted. The lumbar vertebral bodies grossly maintain their normal heights with preserved lordosis. There is mild retrolisthesis at L3-L4, L4-L5, and L5-S1. Multilevel Schmorl`s node formation is noted throughout the superior endplates of the lumbar spine. Endplate osteophyte formation is noted most prominent throughout the lower lumbar spine. Multilevel degenerative disc disease with advanced disc space height loss at L4-L5 and L5-S1. Multilevel facet arthropathy most advanced at L4-L5 and L5-S1 and slightly more prominent on the right. Bilateral sacroiliac arthrosis Advanced spinal canal stenosis at L4-L5 in setting of disc protrusion. Multilevel foraminal narrowing, most prominent on the right at L4-L5 and bilaterally at L5-S1. Paraspinal soft tissues are grossly within normal limits. No acute or suspicious intra-abdominal/pelvic abnormality identified. There are atherosclerotic calcifications of the aorta. IMPRESSION: 1. No definite acute fracture appreciated. If clinical concern for acute fracture is high, recommend further evaluation with MRI. 2. Multilevel spondylosis and degenerative disc disease with advanced disc space height loss at L4-L5 and L5-S1. 3. Advanced spinal canal stenosis at L4-L5 in setting of disc protrusion. Multilevel foraminal narrowing, most prominent on the right at L4-L5 and bilaterally at L5-S1. This can be better evaluated with MRI. Please note that all CT scans at this facility use dose modulation, iterative reconstruction, and/or weight-based dosing when appropriate to reduce radiation dose to as low as reasonably achievable. Dictated by Rene Auguste MD @ 07/03/2024 9:50:55 PM (Electronically Signed)
[2024-07-03] MEDS: KETOROLAC 30 MG/ML inj IM (22:25)
[2024-07-03 22:30] VITALS: BP 174/83; PULSE 90; RESP 16; O2SAT 95
== END 2024-07-03 22:48 | disposition home or self-care (01) ==
PROVIDERS: Emergency Provider Family Medicine; PCP Family Medicine
DX: M54.16 Radiculopathy, lumbar region (principal)
CPT/HCPCS: 72131; 96372; 99283; J1885

== ENCOUNTER 2024-07-04 22:00 | Emergency (ER) | payer BC, SELFPAY ==
[2024-07-04 22:13] VITALS: BP 154/75; PULSE 91; RESP 24; TEMP 39; O2SAT 90
[2024-07-04 23:04] VITALS: RESP 16; TEMP 37.3; O2SAT 97
[2024-07-04 23:08] LABS: PCR FLU A Negative PCR FLU A (Negative); PCR FLU B Negative PCR FLU B (Negative); PCR RSV Negative PCR RSV (Negative); SARS PCR* Negative SARS-CoV-2 (Negative)
--- NOTE | 2024-07-05 00:03 | ED_ITS ---
HPI - General Adult General Chief complaint: Fever Stated complaint: fever Time Seen by Provider: 07/04/24 22:10 History of Present Illness HPI narrative: Patient seen in ED last night for back pain; dx radiculopathy. One hour ago developed 102 fever. Feels more short of breath. Patient had prescribed prednisone and oxycodone sometime this morning at breakfast. Took motrin 400mg or 800mg at 1500, along with tinzanadine and THC 50mg 64-year-old woman presenting to the emergency department with concern of return of right leg radicular pain. Seen yesterday in this emergency department and had CT report at that time. This did show some advanced spinal canal stenosis at L4-5 in the setting of disc protrusion. Diagnosed with a right leg lumbar radiculopathy Was discharged with small quantity of oxycodone. New more information now is that had measured temp at up to 103.5 I believe at home. Not necessarily with more back pain with more radicular pain. Just feeling terrible amount of pain. Continues through buttock and posterior thigh to the knee. With this fever and spouse noting that she just seemed confused thought he should return be seen in the emergency department. Related Data Home Medications ?Medication ?Instructions ?Recorded ?Confirmed acetaminophen 325 mg tablet 650 mg PO Q4H PRN 01/27/22 07/03/24 coenzyme Q10 30 mg capsule (Co 30 mg PO QDAY 01/29/22 07/03/24 Q-10) multivitamin 1 tab PO QAM 01/29/22 07/03/24 fluticasone furoate 200 1 inh inhalation DAILY 06/25/22 06/21/24 mcg-vilanterol 25 mcg/dose inhalation powder aspirin 81 mg tablet,delayed 81 mg PO QDAY 05/11/23 07/03/24 release clobetasol 0.05 % scalp solution topical BID 04/13/24 06/21/24 clobetasol 0.05 % topical ointment topical .ud 04/13/24 06/21/24 hydrocortisone 2.5 % topical topical .ud 04/13/24 06/21/24 ointment ketoconazole 2 % shampoo topical DAILY 04/13/24 06/21/24 melatonin 3 mg capsule 15 mg PO QHS PRN 04/13/24 07/03/24 cholecalciferol (vitamin D3) 1,250 1,250 mcg PO DAILY 05/19/24 07/03/24 mcg (50,000 unit) capsule clobetasol 0.05 % topical cream 1 applic topical QDAY 05/19/24 06/21/24 iron,carbonyl 65 mg-vitamin C 125 1 tab PO QDAY 05/19/24 07/03/24 mg tablet,delayed release (Vitron-C) semaglutide 0.25 mg or 0.5 mg (2 mg subcut 05/19/24 06/21/24 mg/3 mL) subcutaneous pen injector (Ozempic) Previous Rx's ?Medication ?Instructions ?Recorded fluoxetine 40 mg capsule 40 mg PO QAM #90 caps 05/11/23 buspirone 5 mg tablet 5 mg PO BID #90 tabs 10/04/23 lisinopril 20 mg tablet 20 mg PO DAILY #90 tabs 10/27/23 rosuvastatin 10 mg tablet 10 mg PO QHS #90 tabs 10/27/23 cyclobenzaprine 5 mg tablet 5 mg PO QHS PRN muscle spasm #10 05/19/24 tabs albuterol sulfate 90 mcg/actuation 2 inh inhalation Q4-6H PRN 05/22/24 aerosol inhaler bronchospasm #8.5 grams omeprazole 40 mg capsule,delayed 40 mg PO DAILY #90 caps 05/22/24 release bupropion HCl 300 mg 24 hr tablet, 300 mg PO QAM #90 tabs 06/14/24 extended release (Wellbutrin XL) albuterol sulfate 2.5 mg/3 mL 2.5 mg (3 mL) inhalation Q4H PRN 06/23/24 (0.083 %) solution for nebulization shortness of breath or wheezing #90 mL cyclobenzaprine 10 mg tablet 10 mg PO TID PRN muscle spasm #15 07/05/24 tabs levofloxacin 750 mg tablet 750 mg PO DAILY 5 days #5 tabs 07/05/24 oxycodone-acetaminophen 5 mg-325 1 - 2 tab PO Q8H PRN pain #12 tabs 07/05/24 mg tablet (Percocet) Allergies Allergy/AdvReac Type Severity Reaction Status Date / Time azithromycin Allergy Intermediate Light Verified 07/03/24 19:14 Headed hydromorphone Allergy Intermediate Itchy Verified 07/03/24 19:14 lactose Allergy Intermediate Diarrhea Verified 07/03/24 19:14 zolpidem Allergy Intermediate Fatigue & Verified 07/03/24 19:14 Vertigo Cephalosporins Allergy Mild Nausea/Vomi Verified 07/03/24 19:14 ting codeine Allergy Mild N-V Verified 07/03/24 19:14 penicillin V Allergy Mild Hives Verified 07/03/24 19:14 nitrofurantoin Allergy Unknown itchy? Verified 07/03/24 19:14 atorvastatin AdvReac Mild myalgia Verified 07/03/24 19:14 Review of Systems Status of ROS: Reports: 6 or more systems reviewed and unremarkable except as noted in History and below [facility] Medical History CLAUDIA (obstructive sleep apnea) ?G47.33 - Obstructive sleep apnea (adult) (pediatric) (ICD-10) COPD (chronic obstructive pulmonary disease) ?J44.9 - Chronic obstructive pulmonary disease, unspecified (ICD-10) Anxiety ?F41.9 - Anxiety disorder, unspecified (ICD-10) Hypertension ?I10 - Essential (primary) hypertension (ICD-10) Osteoarthritis ?M19.90 - Unspecified osteoarthritis, unspecified site (ICD-10) GERD (gastroesophageal reflux disease) ?K21.9 - Gastro-esophageal reflux disease without esophagitis (ICD-10) History of open sigmoidectomy (08/23/12) ?Z98.890 - Other specified postprocedural states (ICD-10) ?Z90.49 - Acquired absence of other specified parts of digestive tract (ICD- 10) 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 (ICD-10) Mild intermittent asthma (07/24/11) ?J45.20 - Mild intermittent asthma, uncomplicated (ICD-10) Surgical History H/O laparoscopy (03/10/12) ?Z98.890 - Other specified postprocedural states (ICD-10) Status post tonsillectomy ?Z90.89 - Acquired absence of other organs (ICD-10) Status post appendectomy (~02/2012) ?Z90.49 - Acquired absence of other specified parts of digestive tract (ICD- 10) History of laparoscopic cholecystectomy (03/10/12) ?Z90.49 - Acquired absence of other specified parts of digestive tract (ICD- 10) History of hysterectomy (05/20/06) ?Z90.710 - Acquired absence of both cervix and uterus (ICD-10) History of carpal tunnel surgery (~1989) ?Z98.890 - Other specified postprocedural states (ICD-10) Family History Brother Aneurysm Lung cancer Maternal Grandmother Colorectal cancer Father CHF (congestive heart failure) Coronary artery disease Diabetes Mother Coronary artery disease Stroke Depression Diabetes High blood pressure Rheumatic fever Social History Narrative: Does not drink alcohol Does not use illicit drugs Smoker- 0.5 packs per day Smoking Status: Former smoker Do you use any of these nicotine containing products: None Second hand tobacco smoke exposure: Yes How often do you have a drink containing alcohol: monthly or less AUDIT-C Alcohol total score: 1 Non-prescribed substance use: denies use Exam Narrative: Exam Narrative: Other it is easily. Appears uncomfortable. Pain to palpation of the buttock. Favoring right leg. Pain exacerbated when goes to sitting position. Skin feels rather warm. Good air movement in the lungs but with diffuse crepitus. Initial pulse ox noted to be 90%. Pulse is elevated in a regular rhythm. Const: Vital Signs, click to edit/add: Vital Signs - 24 hr 07/04/24 22:13 07/04/24 23:04 07/05/24 00:46 Temperature 102.2 F H 99.1 F 99.0 F Pulse Rate [Pulse Oximeter] 91 Respiratory Rate 24 16 Blood Pressure [Ri ght Upper Arm] 154/75 H Pulse Oximetry 90 97 Oxygen Delivery Me thod Room Air Room Air 07/05/24 02:02 Temperature Pulse Rate [Pulse Oximeter] 80 Respiratory Rate 16 Blood Pressure [Ri ght Upper Arm] 119/71 Pulse Oximetry 95 Oxygen Delivery Me thod Room Air Documenting provider has reviewed patient's vital signs: yes Course Vital Signs Vital signs: Initial Vital Signs Temperature 102.2 F H 07/04/24 22:13 Temperature Source Temporal Artery Scan 07/04/24 22:13 Pulse Rate 91 07/04/24 22:13 Respiratory Rate 24 07/04/24 22:13 Blood Pressure 154/75 H 07/04/24 22:13 Blood Pressure Mean 101 07/04/24 22:13 Blood Pressure Position Sitting 07/04/24 22:13 Pulse Oximetry 90 07/04/24 22:13 Oxygen Delivery Method Room Air 07/04/24 22:13 Vital Signs Temperature 102.2 F H 07/04/24 22:13 Pulse Rate 91 07/04/24 22:13 Respiratory Rate 24 07/04/24 22:13 Blood Pressure 154/75 H 07/04/24 22:13 Pulse Oximetry 90 07/04/24 22:13 Oxygen Delivery Method Room Air 07/04/24 22:13 Temperature 99.0 F 07/05/24 00:46 Pulse Rate 80 07/05/24 02:02 Respiratory Rate 16 07/05/24 02:02 Blood Pressure 119/71 07/05/24 02:02 Pulse Oximetry 95 07/05/24 02:02 Oxygen Delivery Method Room Air 07/05/24 02:02 Medications Administered Medications: Discontinued Medications Generic Name Dose Route Start Last Admin Trade Name Freq PRN Reason Stop Dose Admin Sodium Chloride 1,000 mls @ 1,000 mls/hr 07/05/24 00:23 07/05/24 01:42 0.9 % Sodium Chloride 1000 Ml IV 07/05/24 01:22 Infused .Q1H ONE Infusion Ceftriaxone Sodium 2 gm/ 100 mls @ 200 mls/hr 07/05/24 01:45 07/05/24 02:33 Sodium Chloride IVPB 07/05/24 01:46 Infused ONCE ONE Infusion Sodium Chloride 500 mls @ 1,000 mls/hr 07/05/24 02:44 07/05/24 03:19 0.9 % Sodium Chloride 500 Ml IV 07/05/24 03:13 Infused .Q30M ONE Infusion Ketorolac Tromethamine 30 mg 07/05/24 00:23 07/05/24 00:46 Ketorolac 30 Mg/Ml Inj IVP 07/05/24 00:24 30 mg ONCE ONE Administration Levofloxacin 500 mg 07/05/24 02:51 07/05/24 02:57 Levofloxacin 500 Mg Tablet PO 07/05/24 02:52 500 mg ONCE ONE Administration Levofloxacin 750 mg 07/05/24 03:21 07/05/24 03:54 Levofloxacin 750 Mg Tablet PO 07/05/24 03:22 Not Given ONCE ONE Morphine Sulfate 4 mg 07/05/24 00:23 07/05/24 00:47 Morphine 4 Mg/Ml Inj IVP 07/05/24 00:24 4 mg ONCE ONE Administration Oxycodone/Acetaminophen 1 - 2 tab 07/05/24 03:21 07/05/24 03:54 Oxycodone/Apap 5-325 Tablet PO 1 tab TID PRN Administration Medical Decision Making MDM Narrative Medical decision making narrative: I would suspect that this fever has contributed to what was noted as some altered mental status though I suppose could be opiate related as well. Reassuring that did have imaging yesterday. Pain is not isolated in the back and I think less likely to represent spinal abscess. Fever I think unrelated to back pain other than might be contributing to exacerbation of discomfort. Influenza A considering community prevalence? With findings on physical exam would like to at least do a chest x-ray. Collect labs. IV fluids. Monitor for further signs of sepsis. Pain management. Chest x-ray independently reviewed by me appears to show potential infiltrate in the right mid lung area. White count is rather elevated just under 20,000. CRP at almost 17 Radiology over-read below TECHNIQUE: Chest radiograph, 1 view. COMPARISON: Chest radiograph 06/29/2022. FINDINGS: Cardiovascular/Mediastinum: Normal heart size. Unremarkable. Lungs: No focal consolidation. Mild pulmonary vascular congestion. Hazy ill-defined opacification of the right infrahilar region. Airways: Trachea remains midline. Pleura: No pleural effusions or pneumothorax. Bones: No acute osseous abnormalities. Upper abdomen: Unremarkable. IMPRESSION: Hazy ill-defined opacification of the right infrahilar region may represent atelectasis or developing pneumonia in the appropriate clinical setting. Later able to obtain urinalysis which looks positive. Given initial dosing of Rocephin IV Feels much better on reassessment. Had briefly been experiencing I think some spasms in her right leg. Blood pressure is stable over 4 hours of observation in the ER. Oxygenation as well. Considering allergies/intolerances and looking for coverage for lungs and urine, initiating on outpatient antibiotic coverage with Levaquin. Will receive a dose yet here in the emergency department before departure. See patient discharge plan for further discussion Medical Records Medical records reviewed: Yes I reviewed the patient's medical records Lab Data Lab results reviewed: Yes I reviewed the patient's lab results Labs: Lab Results 07/04/24 07/05/24 07/05/24 Range/Units 22:15 00:45 01:35 WBC 19.90 H (4.50-11.00) K/uL RBC 4.60 (4.00-5.20) m/uL Hgb 13.3 (12.0-16.0) gm/dL Hct 41.0 (33.0-51.0) % MCV 89 (80-100) fL MCH 29 (26-34) pg MCHC 32 (32-36) gm/dL RDW Coeff of Alee 14.6 (11.5-15.5) % Plt Count 211 (140-440) K/uL Neut % (Auto) 89.5 H (42.0-72.0) % Lymph % (Auto) 3.4 L (20-44) % Holt % (Auto) 5.6 (0.0-11.0) % Eos % (Auto) 0.0 (0.0-7.0) % Baso % (Auto) 0.1 (0.0-3.0) % Neut # (Auto) 17.80 H (1.7-7.0) K/uL Lymph # (Auto) 0.70 L (0.90-2.90) K/uL Holt # (Auto) 1.10 H (0.00-0.90) K/UL Eos # (Auto) 0.00 (0.00-0.50) K/uL Baso # (Auto) 0.00 (0.00-0.30) K/uL Abs Immat Gran (auto) 0.30 (0.00-0.30) K/uL Imm/Tot Granulo (auto) 1.4 % Sodium 133 L (135-149) mmol/L Potassium 3.8 (3.6-5.1) mmol/L Chloride 96 (96-114) mmol/L Carbon Dioxide 26 (20-32) mmol/L Anion Gap 11 (7-15) mEq/L BUN 16 (7-30) mg/dL Creatinine 0.8 (0.5-1.5) mg/dL Estimated GFR 83 ml/min Glucose 158 H (60-115) mg/dL Calcium 9.7 (8.4-10.6) mg/dL Total Bilirubin 1.4 (0.1-1.5) mg/dL Direct Bilirubin 0.4 (0.0-0.5) mg/dL AST 30 (12-35) U/L ALT 29 (4-35) U/L Alkaline Phosphatase 71 (40-150) U/L C-Reactive Protein 16.6 H (0.5-1.0) mg/dL Total Protein 7.3 (6.0-8.3) g/dL Albumin 4.2 (3.3-5.0) g/dL Urine Color Yellow (Yellow) Urine Appearance Clear (Clear) Urine pH 5.5 (5.0-8.5) Ur Specific Broad Top 1.025 (1.000-1.030) Urine Protein 1+ A (Negative) Urine Glucose (UA) Negative (Negative) Urine Ketones 3+ A (Negative) Urine Blood 2+ A (Negative) Urine Nitrite Positive A (Negative) Urine Bilirubin Negative (Negative) Urine Urobilinogen 0.2 (0.2-1.0) Ur Leukocyte Esterase Negative (Negative) Urine RBC 10-25 A (0-2) Urine WBC 5-10 A (0-5) Ur Squamous Epith Cells Many A (None-Few) Urine Bacteria Many A (None) SARS-CoV-2 (PCR) Negative SARS-CoV-2 (Negative) Influenza Type A (PCR) Negative PCR FLU A (Negative) Influenza Type B (PCR) Negative PCR FLU B (Negative) RSV (PCR) Negative PCR RSV (Negative) Critical Care Time Critical Care Time Critical Care Time: Yes Attestation: The patient required my highest level preparedness to intervene emergently and I personally spent this critical care time directly and personally managing the patient. This critical care time included: Obtaining a history; Examining the patient; Pulse oximetry; Ordering and reviewing of studies; Arranging urgent treatment with development of a management plan; Evaluation of patients response to treatment; Frequent reassessment discussions with other providers. This critical care time was performed to assess and manage the high probability of imminent life-threatening deterioration that could result in multiorgan failure. It was exclusive of separate billable procedures and treating other patients and teaching time. Total Critical Care Time in Minutes: 45 Discharge Plan Discharge Clinical Impression: Fever, Sciatica, UTI (urinary tract infection), SIRS (systemic inflammatory response syndrome) Patient Disposition: Home w/ Parent or Adult Condition: Improved Additional Instructions: Focus on hydration with water. It seems that you may have urinary tract infection and possibly a pneumonia that might be contributing to your fever. A urine culture will be pending here. Will contact you if is necessary change course. We will be sending you with another dosing of levofloxacin. Prescription also for Percocet for your leg if needed. In each tablet of Percocet, an opiate, there is 5 mg of oxycodone and 325 mg of acetaminophen. Generally, can take up to 1000 mg acetaminophen per dose. Can take up to 800 mg of ibuprofen per dose which can be combined with any of the above. On the days that you are taking an opiate, consider taking 1-2 tablets of senna daily. Also be sure keeping up on fiber intake. Be seen for uncontrolled fever, increasing shortness of breath, uncontrolled pain, unusual somnolence. Prescriptions: New oxycodone-acetaminophen [Percocet] 5-325 mg tablet 1 - 2 tab PO Q8H PRN (Reason: pain) Qty: 12 0RF levofloxacin 750 mg tablet 750 mg PO DAILY 5 Days Qty: 5 0RF cyclobenzaprine 10 mg tablet 10 mg PO TID PRN (Reason: muscle spasm) Qty: 15 0RF No Action aspirin 81 mg tablet,delayed release (DR/EC) 81 mg PO QDAY fluoxetine 40 mg capsule 40 mg PO QAM Qty: 90 3RF melatonin 3 mg capsule 15 mg PO QHS PRN Patient Comments: unsure of strength acetaminophen 325 mg tablet 650 mg PO Q4H PRN Rx Instructions: NO MORE THAN 4000 MG/DAY coenzyme Q10 [Co Q-10] 30 mg capsule 30 mg PO QDAY multivitamin Tablet 1 tab PO QAM buspirone 5 mg tablet 5 mg PO BID Qty: 90 3RF clobetasol 0.05 % solution topical BID clobetasol 0.05 % ointment topical .ud hydrocortisone 2.5 % ointment topical .ud Patient Comments: APPLY ON EARS TWO TIMES A DAY FOR UP TO 2 WEEKS AT A TIME. THEN TAKE 2 WEEKS OFF. REPEAT NEEDED FOR FLARES. ketoconazole 2 % shampoo topical DAILY clobetasol 0.05 % cream 1 applic topical QDAY Vitron-C 65 mg iron- 125 mg tablet,delayed release (DR/EC) 1 tab PO QDAY cholecalciferol (vitamin D3) 1,250 mcg (50,000 unit) capsule 1,250 mcg PO DAILY Ozempic 0.25 mg or 0.5 mg (2 mg/3 mL) pen injector subcut cyclobenzaprine 5 mg tablet 5 mg PO QHS PRN (Reason: muscle spasm) Qty: 10 0RF fluticasone furoate-vilanterol 200-25 mcg/dose blister with device 1 inh INHALATION DAILY Patient Comments: INHALE ONE PUFF ONCE DAILY AT THE SAME TIME EACH DAY lisinopril 20 mg tablet 20 mg PO DAILY Qty: 90 3RF rosuvastatin 10 mg tablet 10 mg PO QHS Qty: 90 3RF omeprazole 40 mg capsule,delayed release(DR/EC) 40 mg PO DAILY Qty: 90 0RF albuterol sulfate 90 mcg/actuation HFA aerosol inhaler 2 inh inhalation Q4-6H PRN (Reason: bronchospasm) Qty: 8.5 2RF bupropion HCl [Wellbutrin XL] 300 mg tablet extended release 24 hr 300 mg PO QAM Qty: 90 1RF albuterol sulfate 2.5 mg /3 mL (0.083 %) solution for nebulization 2.5 mg inhalation Q4H PRN (Reason: shortness of breath or wheezing) Qty: 90 0RF Follow Up/Referrals: Shayna Feliciano MD [Primary Care Provider] - Stand Alone Forms: [facility] Info Instructions
--- NOTE | 2024-07-05 00:23 | CRLHL7_ITS ---
For Patients: As a result of the Century Cures Act, medical imaging exams and procedure reports are released immediately into your electronic medical record. You may view this report before your referring provider. If you have questions, please contact your health care provider. INDICATION: Dyspnea. Fever. TECHNIQUE: Chest radiograph, 1 view. COMPARISON: Chest radiograph 06/29/2022. FINDINGS: Cardiovascular/Mediastinum: Normal heart size. Unremarkable. Lungs: No focal consolidation. Mild pulmonary vascular congestion. Hazy ill-defined opacification of the right infrahilar region. Airways: Trachea remains midline. Pleura: No pleural effusions or pneumothorax. Bones: No acute osseous abnormalities. Upper abdomen: Unremarkable. IMPRESSION: Hazy ill-defined opacification of the right infrahilar region may represent atelectasis or developing pneumonia in the appropriate clinical setting. Dictated by Boston Sher MD @ 07/05/2024 12:57:23 AM (Electronically Signed)
[2024-07-05 00:46] VITALS: TEMP 37.2
[2024-07-05] MEDS: KETOROLAC 30 MG/ML inj IVP (00:46)
[2024-07-05] MEDS: MORPHINE 4 MG/ML INJ IVP (00:47)
[2024-07-05] MEDS: 0.9 % SODIUM CHLORIDE 1000 ml 1,000 ML IV (00:48)
[2024-07-05 00:55] LABS: Basophils Percent Auto 0.1 % (0.0-3.0); Hemoglobin* 13.3 gm/dL (12.0-16.0); Immature Granulocytes Pct Auto 1.4 %; Lymphocytes Percent Auto 3.4 % (20-44); Mean Corpuscular HGB Conc 32 gm/dL (32-36); Mean Corpuscular Hemoglobin 29 pg (26-34); Mean Corpuscular Volume 89 fL (80-100); Monocytes Percent Auto 5.6 % (0.0-11.0); Neutrophils Percent Auto 89.5 % (42.0-72.0); Platelet Count* 211 K/uL (140-440); RDW Coefficient of Variation % 14.6 % (11.5-15.5)
[2024-07-05 00:58] LABS: Slide Review Reflex No
[2024-07-05 01:11] LABS: Chloride* 96 mmol/L (96-114); Potassium* 3.8 mmol/L (3.6-5.1); Sodium* 133 mmol/L (135-149)
[2024-07-05 01:14] LABS: Alanine Aminotransferase* 29 U/L (4-35); Alkaline Phosphatase* 71 U/L (40-150); Anion Gap 11 mEq/L (7-15); Aspartate Amino Transferase* 30 U/L (12-35); Bilirubin Direct* 0.4 mg/dL (0.0-0.5); Bilirubin Total* 1.4 mg/dL (0.1-1.5); Blood Urea Nitrogen* 16 mg/dL (7-30); Carbon Dioxide* 26 mmol/L (20-32); Creatinine* 0.8 mg/dL (0.5-1.5); Estimated Glomerular Filt Rate 83 ml/min; Total Protein* 7.3 g/dL (6.0-8.3)
[2024-07-05 01:15] LABS: Calcium* 9.7 mg/dL (8.4-10.6); Glucose* 158 mg/dL (60-115)
[2024-07-05 01:32] LABS: Albumin* 4.2 g/dL (3.3-5.0)
[2024-07-05 01:41] LABS: Appearance Urine Clear (Clear); Bilirubin Urine Negative (Negative); Blood Urine 2+ (Negative); Color Urine Yellow (Yellow); Glucose Urine Negative (Negative); Ketones Urine 3+ (Negative); Leukocyte Esterase Urine Negative (Negative); Nitrite Urine Positive (Negative); Protein Urine 1+ (Negative); Specific Gravity Urine 1.025 (1.000-1.030); Urobilinogen Urine 0.2 (0.2-1.0); pH Urine 5.5 (5.0-8.5)
[2024-07-05 01:53] LABS: Bacteria Urine Many; Squamous Epithelial Cell Urine Many (None-Few)
[2024-07-05] MEDS: cefTRIAXone 2 GM in 0.9 % SODIUM CHLORIDE Mini-bag 100 ML IVPB (01:57)
[2024-07-05 02:02] VITALS: BP 119/71; PULSE 80; RESP 16; O2SAT 95
[2024-07-05 02:27] LABS: C Reactive Protein* 16.6 mg/dL (0.5-1.0)
[2024-07-05] MEDS: 0.9 % SODIUM CHLORIDE 500 ML 500 ML 1000 ML IV (02:49)
[2024-07-05] MEDS: levoFLOXacin 500 MG TABLET PO (02:57)
[2024-07-05] MEDS: OxyCODONE/APAP 5-325 TABLET PO (03:54)
== END 2024-07-05 03:57 | disposition home or self-care (01) ==
PROVIDERS: Emergency Provider Family Medicine; PCP Family Medicine
DX: M54.16 Radiculopathy, lumbar region (principal)
CPT/HCPCS: 36415; 71045; 80048; 80076; 81001; 85025; 86140; 87086; 87186; 87631; 96365; 96375; 99284; 99291; A9270; J0696; J1885; J2270; J7030

== ENCOUNTER 2024-07-13 14:09 | Outpatient (CLI) | payer BC, SELFPAY ==
--- NOTE | 2024-07-13 14:45 | CRLHL7_ITS ---
For Patients: As a result of the Century Cures Act, medical imaging exams and procedure reports are released immediately into your electronic medical record. You may view this report before your referring provider. If you have questions, please contact your health care provider. INDICATION: Radiculopathy. COMPARISON: 07/03/2024. Technique Sagittal T1, T2, and STIR sequences. Axial T1 and T2 weighted sequences. FINDINGS: Normal vertebral body alignment. Partially visualize abnormal marrow signal intensity of the right sacral ala which may be secondary to a sacral insufficiency fracture. No fractures of the lumbar spine. Small Schmorl`s nodes at the endplates of L2, L3 and L4. Vertebral body hemangiomas T12 and L5. Normal conus remain T12-L1. [id number]: No spinal canal neural foraminal narrowing. L1-2: Disc degeneration. Small central disc protrusion measures approximately 3 mm in short axis. No narrowing of spinal canal. No neural foraminal narrowing. L2-3: No spinal canal or neural foraminal narrowing. L3-4: Disc degeneration posterior disc bulge. Mild narrowing of spinal canal. No neural foraminal narrowing. L4-5: Disc degeneration. Diffuse disc bulge eccentric to the right. Mild narrowing of spinal canal. Mild narrowing of the right neural foramen. No narrowing of left neural foramen. L5-S1: Disc degeneration diffuse disc bulge eccentric to the left. No narrowing of the spinal canal. No impingement of the traversing S1 nerve roots. Mild right and moderate left neural foraminal narrowing. Mild facet arthropathy. Degenerative changes of the SI joints. There is asymmetric joint effusion of the right SI joint with a likely degenerative cyst at the anterior aspect the right SI joint measuring approximately 18 mm in diameter (series 5, image 19). IMPRESSION: 1. Normal alignment. 2. Partially visualized abnormal marrow edema of the right sacral ala which may secondary to sacral insufficiency fracture 3. At L1-2, small central disc protrusion. Otherwise, no spinal canal or neural foraminal narrowing. 4. At L4-5, mild narrowing of the spinal canal and right neural foramen 5. At L5-S1, mild right and moderate left neural foraminal narrowing. 6. Asymmetric joint effusion of the right SI joint with a degenerative cyst at the anterior aspect of the right SI joint Dictated by Jase Bansal MD @ 07/14/2024 9:06:30 PM (Electronically Signed)
== END 2024-07-13 14:10 | disposition home or self-care (01) ==
PROVIDERS: PCP Family Medicine; Visit Provider Family Medicine
DX: M54.16 Radiculopathy, lumbar region (principal); M51.26 Other intervertebral disc displacement, lumbar region; M51.27 Other intervertebral disc displacement, lumbosacral region; M25.48 Effusion, other site
CPT/HCPCS: 72148

== ENCOUNTER 2024-08-31 12:39 | Outpatient (CLI) | payer BC, SELFPAY ==
--- NOTE | 2024-08-31 13:00 | CRLHL7_ITS ---
For Patients: As a result of the Century Cures Act, medical imaging exams and procedure reports are released immediately into your electronic medical record. You may view this report before your referring provider. If you have questions, please contact your health care provider. XR DXA Bone Mineral Density (BMD) Reason for exam: Sacral fracture. Current height (in): 66. Weight (lb): 229. Menopause age: 31. Ethnicity: White. 1. Have you had a previous hip or vertebral fracture? No. 2. Have you had any fractures during your adult life which did not result from significant trauma (e.g., auto accident)? No. 3. Did either of your parents have a hip fracture? No. 4. Do you smoke? No. 5. Have you ever taken Glucocorticoids? No. 6. Do you have rheumatoid arthritis? No. 7. Do you have secondary osteoporosis? No. 8. Do you drink 3 or more alcoholic drinks per day? No. 9. Are you being treated for osteoporosis? No. 10. Have you ever taken any of the following medications: Actonel, Evista, Fosamax, Miacalcin, Reclast, Boniva, Forteo, HRT (i.e., estrogen/hormone therapy), Protelos, Prolia, Vitamin D, Calcium, other ??? please specify. ANSWER: Yes, vitamin D and calcium. 11. Do you have any of the following medical conditions: Anorexia or bulimia, asthma or emphysema, end stage renal disease, hyperparathyroidism, any seizure disorders, cancer, inflammatory bowel diseases, hysterectomy, other ??? please specify. ANSWER: Yes, asthma or emphysema, and hysterectomy. 12. What was your maximum height (inches)? 66. 13. Do you perform weight bearing exercise regularly? No. 14. Do you regularly consume dairy products? No. 15. Do you drink caffeinated beverages? Yes. 16. At what age did your period start? 12. 17. Are you premenopausal? No. 18. How many full-term pregnancies have you had? 3. 19. Have you ever missed your period for more than 6 months in a row (not including or menopause)? No. TECHNIQUE: Bone mineral density study was performed using the [employer]. FINDINGS: The results of the study expressed as bone mineral density (BMD) are as follows: Lumbar spine L1 to L4: BMD: 1.060 g/cm2. T-score: 0.1. Z-score: 1.8 Neck Left: BMD: 0.796 g/cm2. T-score: -0.5. Z-score: 1.0 Right: BMD: 0.745 g/cm2. T-score: -0.9. Z-score: 0.5 Total Left: BMD: 1.042 g/cm2. T-score: 0.8. Z-score: 2.0 Right: BMD: 1.006 g/cm2. T-score: 0.5. Z-score: 1.7 IMPRESSION: Normal bone density. *Comparison exams done prior to 12/2019 were performed on different unit, [email or web address]. Nirali Jenkins M.D. Diagnostic Radiologist [email or web address] MONICA/[email or web address]/Dictated by: Nirali Jenkins MD @ 09/01/2024 8:02:00 AM (Electronically Signed)
== END 2024-08-31 12:40 | disposition home or self-care (01) ==
LOC: RAD 12:41
PROVIDERS: PCP Family Medicine; Visit Provider Physical Medicine & Rehabilitation Pain Medicine
DX: S32.10XA Unspecified fracture of sacrum, initial encounter for closed fracture (principal)
CPT/HCPCS: 77080

== ENCOUNTER 2024-10-03 08:55 | Outpatient (CLI) | payer BC, SELFPAY ==
[2024-10-03 13:17] LABS: Albumin* 4.4 g/dL (3.3-5.0); Chloride* 100 mmol/L (96-114)
[2024-10-03 13:18] LABS: Potassium* 4.3 mmol/L (3.6-5.1); Sodium* 140 mmol/L (135-149)
[2024-10-03 13:20] LABS: Blood Urea Nitrogen* 13 mg/dL (7-30); Creatinine* 0.7 mg/dL (0.5-1.5); Estimated Glomerular Filt Rate 97 ml/min
[2024-10-03 13:21] LABS: Alanine Aminotransferase* 23 U/L (4-35); Alkaline Phosphatase* 78 U/L (40-150); Anion Gap 11 mEq/L (7-15); Aspartate Amino Transferase* 28 U/L (12-35); Basophils Absolute Auto 0.03 K/uL (0.00-0.30); Basophils Percent Auto 0.4 % (0.0-3.0); Bilirubin Total* 0.6 mg/dL (0.1-1.5); Calcium* 9.8 mg/dL (8.4-10.6); Carbon Dioxide* 29 mmol/L (20-32); Eosinophils Absolute Auto 0.31 K/uL (0.00-0.50); Eosinophils Percent Auto 4.3 % (0.0-7.0); Glucose* 127 mg/dL (60-115); Hematocrit 43.7 % (33.0-51.0); Hemoglobin* 13.8 gm/dL (12.0-16.0); Lymphocytes Absolute Auto 1.94 K/uL (0.90-2.90); Lymphocytes Percent Auto 26.7 % (20-44); Mean Corpuscular HGB Conc 32 gm/dL (32-36); Mean Corpuscular Hemoglobin 28 pg (26-34); Mean Corpuscular Volume 90 fL (80-100); Monocytes Percent Auto 8.1 % (0.0-11.0); Neutrophils Absolute Auto 4.39 K/uL (1.7-7.0); Neutrophils Percent Auto 60.5 % (42.0-72.0); Phosphorus* 3.6 mg/dL (2.5-4.5); Platelet Count* 319 K/uL (140-440); RDW Coefficient of Variation % 14.8 % (11.5-15.5); Red Blood Count 4.86 m/uL (4.00-5.20); Total Protein* 7.2 g/dL (6.0-8.3); White Blood Count* 7.26 K/uL (4.50-11.00)
[2024-10-03 13:25] LABS: Slide Review Reflex No
[2024-10-03 13:30] LABS: C Reactive Protein* < 0.5 mg/dL (0.5-1.0)
[2024-10-03 13:35] LABS: Vitamin D 25 Hydroxy* 40 ng/mL (30-80)
[2024-10-03 14:12] LABS: Erythrocyte SedimentationRate* 14 mm/hr (2-20)
[2024-10-03 14:13] LABS: PTH Intact* 39.7 pg/mL (14.2-75.2)
[2024-10-04 15:12] LABS: Calcium/Creatinine Ratio Urine 137 mg/g (20-300); Hours Collected 24 hr; Total Volume 900 mL
[2024-10-04 16:59] LABS: BILL_GLIADPEPA Y; Gliadin Peptide Ab, IgA <0.72 FLU (0.00-4.99); Tissue Transglutaminase Ab IgA <1.02 FLU (0.00-4.99)
[2024-10-05 01:12] LABS: BILL_GLIADPEPG Y; BILL_TtGG Y; Gliadin Peptide Ab, IgG <0.56 FLU (0.00-4.99); Tissue Transglutaminase Ab IgG <0.82 FLU (0.00-4.99)
[2024-10-05 09:38] LABS: Albumin 4.04 g/dL (3.75-5.01); Alpha 1 Globulin 0.31 g/dL (0.19-0.46); Alpha 2 Globulin 0.77 g/dL (0.48-1.05); Total Protein, Serum 7.3 g/dL (6.3-8.2)
== END 2024-10-03 08:56 | disposition home or self-care (01) ==
LOC: NPINS 08:57
PROVIDERS: PCP Family Medicine; Visit Provider Internal Medicine
DX: M81.0 Age-related osteoporosis without current pathological fracture (principal)
CPT/HCPCS: 80053; 82306; 82340; 83735; 83970; 84100; 84165; 85025; 85651; 86140; 86231; 86258; 86364

== ENCOUNTER 2024-12-01 21:18 | Emergency (ER) | payer BC, SELFPAY ==
--- OUTSIDE RECORDS SUMMARY | 2024-12-01 21:21 | XMS_ITS | Encounter Summary ---
Author Organization [facility] Address [address] [place] [address]. [place] [address] Care Team Providers Care Supervisor Laundry Name Role Phone Shayna Feliciano MD Primary Care Provider [phone] Luis Manzo DPM Unavailable [phone] Reason for Visit * Reason Onset Date Comments Call to schedule test 12/28/2023 CT Angiogr am coronary artery Encounter Details Date Type Department Care Team (Late st Contact Info) Description 12/28/2023 [facility] [address] [place] [address] None Call to schedule test (CT Angiogram coronary artery) Social History Tobacco Use Types Packs/Day Years Used Date Smoking Tobacco: Every Day Cigarettes 0.5 20 Alcohol Use Standard Drinks/Week Comments Yes 0 (1 standard drink = 0.6 oz pur e alcohol) occ Adolescent Education Answer Date Record ed Getting School Help Needed Not on file 04/17 Comments No Sex and Gender Information Value Date Recorded Sex Assigned at Not on file Legal Sex Female 2:58 AM DIRECTOR OF ALUMNI RELATIONS Gender Identity Not on file Sexual Orientation Not on file documented as of this encounter Miscellaneous Notes * Telephone Encounter - Roz Wild - 12/28/2023 2:04 PM CDT [facility] Call Center Phone Message May a detailed message be left on voicemail: yes Reason for Call: Other: Patient will like to schedule CT angiogram in [place]. Patient is looking forany day in the afternoon, if possible. Will not be available on 01/07. Please call patient back to further coordinate. Action Taken: Other: Cardiology Travel Screening: Not Applicable Thank you! [facility] documented in this encounter Plan of Treatment Not on file documented as of this encounter Visit Diagnoses Not on filedocumented in this encounter Care Teams Supervisor Laundry Relationship Specialty Start Date End Date Shayna Feliciano MD [address] [address] PCP - General Family Medicine 10/19/23 Luis Manzo DPM [id number] [address] Assigned Musculoskeletal Provider 11/02/23 documented as of this encounter
--- OUTSIDE RECORDS SUMMARY | 2024-12-01 21:21 | XMS_ITS | Encounter Summary ---
Author Organization [facility] Address [address] [place] [address]. [place] [address] Care Team Providers Care Customer Care Agent Name Role Phone Shayna Feliciano MD Primary Care Provider [phone] Luis Manzo DPKorina Unavailable [phone] Encounter Details Date Type Department Care Team (Late st Contact Info) Description 10/08/2024 Medical Correspondence [facility] Information Management [address] [facility] [place] [place] [address] [place] [address] Scan, Non-Provider Social History Tobacco Use Types [...] on file Legal Sex Female 2:58 AM CANDY DIPPER HAND Gender Identity Not on file Sexual Orientation Not on file documented as of this encounter Plan of Treatment Not on file documented as of this encounter Visit Diagnoses Not on filedocumented in this encounter Care Teams Customer Care Agent Relationship Specialty Start Date End Date Shayna Feliciano MD [facility] [address] [place] [address] PCP - General Family Medicine 10/19/23 Luis Manzo DPM [address] [facility] [address] [place], [place] [address] Assigned Musculoskeletal Provider 11/02/23 documented as of this encounter
--- OUTSIDE RECORDS SUMMARY | 2024-12-01 21:21 | XMS_ITS | Clinical Summary ---
Author Organization [facility] Address [address] [place] [address]. [place] [address] Care Team Providers Care Winery Cellar Hand Name Role Phone Shayna Feliciano MD Primary Care Provider [phone] Luis Manzo DPM Unavailable [phone] Allergies Active Allergy Reactions Criticality Noted Date Comments Azithromycin 07/13/2003 diarrhea Cephalosporins 12/28/2002 breathing probs Clindamycin Diarrhea High 02/03/2023 Codeine GI Disturbance Low 08/01/2013 Hydrocodone 12/28/2002 rash Nitrofurantoin Unknown 08/01/2013 Penicillins 12/28/2002 hives Medications ALBUTEROL 90 MCG/ACT IN AERSIndications: Allergic rhinitis, cause unspecified,Unsp ecified asthma(493.90) 1-2 puffs Q 4-6 hrs prn 2 11 12/28/2002 Active EFFEXOR 75 MG OR TABSIndications: Depressive disorder, not elsewhere classified 1 TABLET DAILY WITH FOOD 90 1 10/20/2004 Active Active Problems Problem Noted Date Diagnosed Date Mild intermittent asthma 10/26/2004 PURE HYPERCHOLESTEROLEM 10/22/2004 Depressive disorder, not elsewhere classified Allergic rhinitis 12/28/2002 Overview (04/11/2015): Problem list name updated by automated process. Provider to review Dermatophytosis of nail 12/28/2002 Ingrowing nail 12/28/2002 Encounters Date Type Department Care Team Description 10/08/2024 Medical Correspondence [facility] Information Management [address] [place] [address] [address] [place] [address] Scan, Non-Provider from Last 3 Months Immunizations Immunization Administration Dates Next Due Mantoux Tuberculin Skin [...] on file Legal Sex Female 2:58 AM COMPLIANCE ADMINISTRATOR Gender Identity Not on file Sexual Orientation Not on file Last Filed Vital Signs Vital Sign Reading Time Taken Comments Blood Pressure 146/80 02/03/2024 1:19 PM CDT Pulse 70 02/03/2024 1:19 PM CDT Temperature 36.9 C (98.5 F) 09/27/2004 10:00 AM COMPLIANCE ADMINISTRATOR Respiratory Rate - - Oxygen Saturation - [...] FIT 1961 FLEX SIG 1961 MICROALBUMIN 1961 sDNA (Cologuard) 1961 COLONOSCOPY 1971 COLORECTAL CANCER SCREENING 1971 HIV SCREENING 1976 HEPATITIS C SCREENING 1979 LIPID 10/20/2005 10/20/2004 YEARLY PREVENTIVE VISIT 10/20/2005 10/20/2004 MAMMO SCREENING 09/30/2006 09/30/2004 PAP 10/21/2007 10/20/2004 BMP 12/07/2008 12/08/2007, /03/2007, 05/25/2006, Additional history exists LUNG CANCER SCREENING 2011 ZOSTER IMMUNIZATION (1 of 2) 2011 DTAP/TDAP/TD IMMUNIZATION (2 - Td or Tdap) 03/13/2020 03/13/2010, 07/12/1998 RSV VACCINE (1 - Risk 60-74 years 1-dose series) 2021 Pneumococcal Vaccine: 50+ Years (3 of 3 - PCV20 or PCV21) 12/01/2022 12/01/2017, 06/16/2016 COVID-19 Vaccine (3 - season) 2024 10/25/2020, 09/27/2020 PHQ-2 (once per calendar year) 2024 DIABETIC FOOT EXAM 10/18/2024 10/19/2023 INFLUENZA VACCINE (Season Ended) 2025 05/11/2023, 04/27/2022, 08/07/2020, Additional history exists HPV IMMUNIZATION Aged Out No longer e ligible based on patient's age to complete this topic MENINGITIS IMMUNIZATION Aged Out No l onger eligible based on patient's age to complete this topic Procedures Procedure Name Priority Date/Time Associated Diagnosis Comments GLUCOSE (EXTERNAL RESULT) Routine 10/03/2024 9:00 AM CDT POTASSIUM (EXTERNAL RESULT) Routine 10/03/2024 9:00 AM CDT CREATININE (EXTERNAL RESULT) Routine 10/03/2024 9:00 AM CDT AST (EXTERNAL RESULT) Routine 10/03/2024 9:00 AM CDT ALT (EXTERNAL RESULT) Routine 10/03/2024 9:00 AM CDT LAB RESULT - HIM SCAN 10/03/2024 12:00 AM CDT BASIC METABOLIC PANEL Timed 12/08/2007 7:21 AM CDT CL AFF A.M.A. LIPID PANEL Routine 10/20/2004 11:00 AM CDT Routine Medical Exam HCL PAP THIN LAYER SCREEN Routine 10/20/2004 12:00 AM CDT Routine Medical Exam C MAMMOGRAM, BOTH BREASTS (DIAG) Routine 09/30/2004 10:48 AM COMPLIANCE ADMINISTRATOR Pain in limb from Last 3 Months or Most Recently Relevant to Health Maintenance Results * Potassium (External Result) (10/03/2024 9:00 AM CDT) Potassium (External) 4.3 3.6 - 5.1 mmol/L [facility] Blood 10/03/2024 9:00 AM CDT [facility] - 10/03/2024 9:00 AM CDT [facility] - External Lab Results Provider Outside LAB - HIM EXTERNAL RESULT Final Result Performing Organization Address City/[facility]/[place] [address], [place] [phone] * (ABNORMAL) Glucose (External Result) (10/03/2024 9:00 AM CDT) Glucose (External) 127(A) 60 - 115 mg/dL [facility] Blood 10/03/2024 9:00 AM CDT [facility] - 10/03/2024 9:00 AM CDT [facility] - External Lab Results us Provider Outside LAB - HIM EXTERNAL RESULT Final Result Performing Organization Address City/[facility]/[place] [address], [place] [phone] * Creatinine (External Result) (10/03/2024 9:00 AM CDT) Creatinine (External) 0.7 0.5 - 1.5 mg/dL [facility] Blood 10/03/2024 9:00 AM CDT [facility] - 10/03/2024 9:00 AM CDT [facility] - External Lab Results us Provider Outside LAB - HIM EXTERNAL RESULT Final Result Performing Organization Address [facility]/ZIP Co de Phone Number [address] [phone] * AST (External Result) (10/03/2024 9:00 AM CDT) AST (External) 28 12 - 35 U/L [facility] Blood 10/03/2024 9:00 AM CDT [facility] - 10/03/2024 9:00 AM CDT [facility] - External Lab Results us Provider Outside LAB - HIM EXTERNAL RESULT Final Result Performing Organization Address [facility] de Phone Number [id number] [place] [address] * ALT (External Result) (10/03/2024 9:00 AM CDT) ALT (External) 23 4 - 35 U/L [facility] Blood 10/03/2024 9:00 AM CDT [facility] - 10/03/2024 9:00 AM CDT [facility] - External Lab Results us Provider Outside LAB - HIM EXTERNAL RESULT Final Result Performing Organization Address [facility] Co de Phone Number [id number] [place] [address] * Lab Result - HIM Scan (10/03/2024 12:00 AM CDT) 10/03/2024 us Provider Outside [facility] NON-BEAKER LAB TESTING Final Result * Basic metabolic panel (12/08/2007 7:21 AM [...] 7:21 AM CDT 12/08/2007 5:59 AM CDT us [place] LAB - BLOOD ORDERABLES Final Result Performing Organization Address City/State/[facility] Co de Phone Number MISYS * (ABNORMAL) A.M.A. LIPID PANEL (10/20/2004 11:00 AM CDT) Cholesterol 235(H) 0 - 200 mg/dL [facility] Comment: Cholesterol Reference Range: <200 The NCEP recommends further evaluation of: 1. Patients with cholesterol greater than 200 mg/dL if additional risk factors are present. 2. All patients with a cholesterol greater than 240 mg/dL. Triglycerides 126 0 - 150 mg/dL [facility] HDL Cholesterol 43 >40 mg/dL [facility] LDL Cholesterol Calculated 167(H) 0 - 129 mg/dL [facility] VLDL-Cholesterol 25 0 - 30 mg/dL [facility] Cholesterol/HDL Ratio 5.5(H) 0.0 - 5.0 [facility] 10/20/2004 11:0 0 AM CDT 10/20/2004 11:03 AM CDT Jesi Herring MD LABORATORY Final Result [address] [address] * A THIN LAYER PAP SCREEN (10/20/2004 12:00 AM CDT) PAP DAXA ABAD Copath Report Patient Name: NIURKA JEFFERSON MR#: [id number] Specimen #: [id number] Collected: 10/20/2004 Received: 10/21/2004 Reported: 10/22/2004 14:35 Ordering Phy(s): JESI HERRING SPECIMEN/STAIN PROCESS: Pap thin layer prep screening Pap-Cyto x 1, Reflex HPV x 1 SOURCE: Cervical, endocervical Pap thin layer prep screening SPECIMEN ADEQUACY: Satisfactory for evaluation. -Transitional zone component present. CYTOLOGIC INTERPRETATION: Negative for Intraepithelial Lesion or Malignancy Electronically signed out by: DASHA Gonzalez (ASCP) Processed and screened at [facility] CLINICAL HISTORY: LMP: 10-03-04 Previous normal pap Date of Last Pap: 2001, TESTING LAB LOCATION: [address] [address] COLLECTION SITE: Client: [facility] Location: [facility] (R) COPATH 10/20/2004 10/21/2004 10: 22 AM CDT us Jesi Herring MD LABORATORY Final Result POLLO * MAMMOGRAM, BOTH BREASTS (DIAG) (09/30/2004 10:48 AM COMPLIANCE ADMINISTRATOR) Anatomical Region Laterality Modality Other 09/30/2004 10:4 8 AM COMPLIANCE ADMINISTRATOR Impressions 10/01/2004 3:22 PM COMPLIANCE ADMINISTRATOR DIAGNOSTIC MAMMOGRAM, BILATERAL AND BREAST ULTRASOUND, RIGHT 09/30/2004 CLINICAL HISTORY: Shooting pain in the right breast. BREAST SYMPTOMS: Pain, right. PREVIOUS MAMMOGRAPHY: None. Baseline. BREAST PARENCHYMA: Heterogeneously dense. FINDINGS: Bilateral mammograms are within normal limits. On the original right craniocaudad view there was a questionable nodular density in the medial right breast which could not be reconfirmed on additional images. Ultrasound demonstrates two small morphologically normal lymph nodes in the right axillary region. Otherwise negative ultrasound. Any further evaluation of the patient's clinical symptoms should be based on clinical findings and clinical suspicion. IMPRESSION: CATEGORY 2 Benign findings. TECHNOLOGIST INITIALS: MS Nicholson Shanna Sun PA-C SPECIAL IMAGING STUDIES E dited from Last 3 Months or Most Recently Relevant to Health Maintenance Insurance [facility] [place] [address] [facility] BLUE PLUS [facility] Care Teams Winery Cellar Hand Relationship Specialty Start Date End Date Shayna Feliciano MD [address] [address] PCP - General Family Medicine 10/19/23 Luis Manzo DPM [id number] [address] Assigned Musculoskeletal Provider 11/02/23
--- OUTSIDE RECORDS SUMMARY | 2024-12-01 21:21 | XMS_ITS | Clinical Summary ---
Author Organization [facility] Address [address] [place] [address] Care Team Providers Care Gas Roller Operator Name Role Phone Shayna Feliciano MD Primary Care Provider [phone] Allergies Active Allergy Reactions Criticality Noted Date Comments Azithromycin Itching Medium 08/01/2013 Cephalosporins *Unknown Unknown 08/01/2013 Clindamycin Diarrhea High 02/03/2023 Codeine GI Upset Low 08/01/2013 Erythromycin *Unknown Unknown 08/01/2013 Nitrofurantoin *Unknown Unknown 08/01/2013 Penicillins Hives Medium 08/01/2013 Medications ibuprofen (ADVIL; MOTRIN) 600 mg tablet Take [...] by mouth at bedtime. 12/30/2022 Active fluticasone furoate-vilante roL (BREO ELLIPTA) 200mcg/25mcg inhaler INHALE ONE PUFF ONCE DAILY AT THE SAME TIME EACH DAY 12/17/2022 Active amLODIPine (NORVASC) 5 mg tablet Take 5 mg by mouth. 04/21/2022 Active buPROPion (WELLBUTRIN XL) 150 mg Extended-Releas e tablet TAKE ONE TABLET BY MOUTH EVERY [...] and Fami ly Not on file 05/26/2023 Comments No Sex and Gender Information Value Date Recorded Sex Assigned at Not on file Legal Sex Female 5:27 AM TELEPHONE TECHNICIAN Gender Identity Not on file Sexual Orientation Not on file Obstetrics History Last Filed Vital Signs Vital Sign Reading Time Taken Comments Blood Pressure 128/70 01/19/2023 3:05 PM CDT Pulse 69 01/19/2023 3:05 PM CDT Temperature 36.8 C (98.2 F) 01/19/2023 3:05 PM CDT Respiratory Rate 16 01/19/2023 3:05 PM CDT [...] C screening for ag e 18-79 1979 Pneumococcal series for age 50+ (1 of 2 - PCV) 1980 Tetanus booster 1981 Pap test for age 21-65 1982 Colonoscopy through age 75 2006 Lipids for age 45-75 2006 Mammogram for age 45-75 2006 Zoster (shingles) series for age 50+ (1 of 2) 2011 RSV vaccine for adults or (1 - Risk 60-74 years 1-dose series) 2021 COVID-19 vaccine series ( - season) 2024 10/25/2020, 09/27/2020 Influenza Vaccine (Season Ended) 2025 Hepatitis B series for 19+ Aged Out N o longer eligible based on patient's age to complete this topic Insurance [employer] [facility] Care Teams Gas Roller Operator Relationship Specialty Start Date End Date Shayna Feliciano MD PCP - General 08/18/22
[2024-12-01 21:27] VITALS: BP 137/71; PULSE 89; RESP 16; TEMP 37.1; O2SAT 93; BMI 41.7
[2024-12-01 21:47] LABS: Appearance Urine Clear (Clear); Bilirubin Urine Negative (Negative); Blood Urine Trace-intact (Negative); Color Urine Yellow (Yellow); Glucose Urine Negative (Negative); Ketones Urine Negative (Negative); Leukocyte Esterase Urine 1+ (Negative); Nitrite Urine Negative (Negative); Protein Urine Negative (Negative); Specific Gravity Urine <= 1.005 (1.000-1.030); Urobilinogen Urine 0.2 (0.2-1.0)
--- NOTE | 2024-12-01 22:03 | ED.GENADULT ---
HPI - General Adult General Chief complaint: Urogenital Problems, Female Stated complaint: High temp and possible UTI Time Seen by Provider: 12/01/24 21:37 Source: patient Mode of arrival: ambulatory Limitations: no limitations History of Present Illness HPI narrative: 64-year-old female presenting today with fever and urinary urgency and incontinence. Patient states she woke up this morning with a head cold, states that several members of her family have similar cold symptoms. She denies cough, chest pain or shortness of breath. She has congestion and runny nose. However, she also developed urinary incontinence and urinary urgency and frequency which is reminiscent for her of a previous UTI. She checked her temperature is sometime today and was 103. She did recently take ibuprofen. She denies abdominal pain, hematuria or dysuria. She denies weakness, changes in her appetite or chills. Related Data Home Medications ?Medication ?Instructions ?Recorded ?Confirmed acetaminophen 325 mg tablet 650 mg PO Q4H PRN 01/27/22 10/18/24 coenzyme Q10 30 mg capsule (Co 30 mg PO QDAY 01/29/22 10/18/24 Q-10) multivitamin 1 tab PO QAM 01/29/22 10/18/24 aspirin 81 mg tablet,delayed 81 mg PO QDAY 05/11/23 10/18/24 release clobetasol 0.05 % scalp solution topical BID 04/13/24 10/18/24 clobetasol 0.05 % topical ointment topical .ud 04/13/24 10/18/24 hydrocortisone 2.5 % topical topical .ud 04/13/24 10/18/24 ointment ketoconazole 2 % shampoo topical DAILY 04/13/24 10/18/24 cholecalciferol (vitamin D3) 1,250 1,250 mcg PO DAILY 05/19/24 10/18/24 mcg (50,000 unit) capsule clobetasol 0.05 % topical cream 1 applic topical QDAY 05/19/24 10/18/24 iron,carbonyl 65 mg-vitamin C 125 1 tab PO QDAY 05/19/24 10/18/24 mg tablet,delayed release (Vitron-C) Previous Rx's ?Medication ?Instructions ?Recorded buspirone 5 mg tablet 5 mg PO BID #90 tabs 10/04/23 albuterol sulfate 90 mcg/actuation 2 inh inhalation Q4-6H PRN 05/22/24 aerosol inhaler bronchospasm #8.5 grams albuterol sulfate 2.5 mg/3 mL 2.5 mg (3 mL) inhalation Q4H PRN 06/23/24 (0.083 %) solution for nebulization shortness of breath or wheezing #90 mL omeprazole 40 mg capsule,delayed 40 mg PO DAILY #90 caps 08/24/24 release fluconazole 150 mg tablet 150 mg PO Q3D 2 doses #2 tabs 10/16/24 clindamycin HCl 300 mg capsule 300 mg PO TID #21 caps 10/20/24 bupropion HCl 300 mg 24 hr tablet, 300 mg PO QAM #90 tabs 11/13/24 extended release (Wellbutrin XL) fluoxetine 40 mg capsule 40 mg PO QAM #90 caps 11/13/24 lisinopril 20 mg tablet 20 mg PO DAILY #90 tabs 11/13/24 rosuvastatin 10 mg tablet 10 mg PO QHS #90 tabs 11/13/24 ciprofloxacin HCl 500 mg tablet 500 mg PO BID 5 days #10 tabs 12/01/24 Allergies Allergy/AdvReac Type Severity Reaction Status Date / Time azithromycin Allergy Intermediate Light Verified 10/16/24 13:58 Headed hydromorphone Allergy Intermediate Itchy Verified 10/16/24 13:58 lactose Allergy Intermediate Diarrhea Verified 10/16/24 13:58 zolpidem Allergy Intermediate Fatigue & Verified 10/16/24 13:58 Vertigo Cephalosporins Allergy Mild Nausea/Vomi Verified 10/16/24 13:58 ting codeine Allergy Mild N-V Verified 10/16/24 13:58 penicillin V Allergy Mild Hives Verified 10/16/24 13:58 nitrofurantoin Allergy Unknown itchy? Verified 10/16/24 13:58 atorvastatin AdvReac Mild myalgia Verified 10/16/24 13:58 Review of Systems Status of ROS: Reports: 10 or more systems reviewed and unremarkable except as noted in History and below [facility] Medical History CLAUDIA (obstructive sleep apnea) ?G47.33 - Obstructive sleep apnea (adult) (pediatric) (ICD-10) COPD (chronic obstructive pulmonary disease) ?J44.9 - Chronic obstructive pulmonary disease, unspecified (ICD-10) Anxiety ?F41.9 - Anxiety disorder, unspecified (ICD-10) Hypertension ?I10 - Essential (primary) hypertension (ICD-10) Osteoarthritis ?M19.90 - Unspecified osteoarthritis, unspecified site (ICD-10) GERD (gastroesophageal reflux disease) ?K21.9 - Gastro-esophageal reflux disease without esophagitis (ICD-10) History of open sigmoidectomy (08/23/12) ?Z98.890 - Other specified postprocedural states (ICD-10) ?Z90.49 - Acquired absence of other specified parts of digestive tract (ICD-10) 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 (ICD-10) Mild intermittent asthma (07/24/11) ?J45.20 - Mild intermittent asthma, uncomplicated (ICD-10) Surgical History H/O laparoscopy (03/10/12) ?Z98.890 - Other specified postprocedural states (ICD-10) Status post tonsillectomy ?Z90.89 - Acquired absence of other organs (ICD-10) Status post appendectomy (~02/2012) ?Z90.49 - Acquired absence of other specified parts of digestive tract (ICD-10) History of laparoscopic cholecystectomy (03/10/12) ?Z90.49 - Acquired absence of other specified parts of digestive tract (ICD-10) History of hysterectomy (05/20/06) ?Z90.710 - Acquired absence of both cervix and uterus (ICD-10) History of carpal tunnel surgery (~1989) ?Z98.890 - Other specified postprocedural states (ICD-10) Family History Brother Aneurysm Lung cancer Maternal Grandmother Colorectal cancer Father CHF (congestive heart failure) Coronary artery disease Diabetes Mother Coronary artery disease Stroke Depression Diabetes High blood pressure Rheumatic fever Social History Narrative: Does not drink alcohol Does not use illicit drugs Smoker- 0.5 packs per day Smoking Status: Former smoker Do you use any of these nicotine containing products: None Second hand tobacco smoke exposure: Yes How often do you have a drink containing alcohol: monthly or less AUDIT-C Alcohol total score: 1 Non-prescribed substance use: denies use Exam Narrative: Exam Narrative: Well-nourished well-developed patient in no acute distress. Alert and oriented. Answers questions appropriately. Mood and affect are appropriate. Thoughts are goal oriented and rational. No tangential or magical thinking noted. Patient speaks in full sentences without needing to catch her breath. HEENT: Normocephalic atraumatic. Pupils are equally round reactive to light. Extraocular muscles are intact. Conjunctivae are moist without any icterus noted. Moist mucous membranes. Cardiovascular: Heart is regular rate and rhythm S1 and S2 are present without any murmurs. Lungs: Clear to auscultation bilaterally no wheezes rhonchi or rales are appreciated. Patient takes deep breaths without any discomfort. Abdomen: Soft and nontender nondistended with normal bowel sounds. Skin: Well perfused without any obvious rashes. Const: Vital Signs, click to edit/add: Vital Signs - 24 hr 12/01/24 21:27 Temperature 98.7 F Pulse Rate [Pulse Oximeter] 89 Respiratory Rate 16 Blood Pressure [Ri ght Upper Arm] 137/71 Pulse Oximetry 93 Oxygen Delivery Me thod Room Air Course Course ED Course: Urine sample had moderate squamous epithelial cells but otherwise only had trace blood and 1+ leukocyte esterase. Patient was not able to give another sample during her time here. Her CBC was unremarkable, did not show an elevated white cell count. Chemistries unremarkable aside from elevated sugar at 198. Vital Signs Vital signs: Initial Vital Signs Temperature 98.7 F 12/01/24 21:27 Temperature Source Temporal Artery Scan 12/01/24 21:27 Pulse Rate 89 12/01/24 21:27 Respiratory Rate 16 12/01/24 21:27 Blood Pressure 137/71 12/01/24 21:27 Blood Pressure Mean 93 12/01/24 21:27 Blood Pressure Position Sitting 12/01/24 21:27 Pulse Oximetry 93 12/01/24 21:27 Oxygen Delivery Method Room Air 12/01/24 21:27 Vital Signs Temperature 98.7 F 12/01/24 21:27 Pulse Rate 89 12/01/24 21:27 Respiratory Rate 16 12/01/24 21:27 Blood Pressure 137/71 12/01/24 21:27 Pulse Oximetry 93 12/01/24 21:27 Oxygen Delivery Method Room Air 12/01/24 21:27 Temperature 98.7 F 12/01/24 21:27 Pulse Rate 89 12/01/24 21:27 Respiratory Rate 16 12/01/24 21:27 Blood Pressure 137/71 12/01/24 21:27 Pulse Oximetry 93 12/01/24 21:27 Oxygen Delivery Method Room Air 12/01/24 21:27 Medical Decision Making MDM Narrative Medical decision making narrative: 64-year-old female with a fever, congestion and symptoms consistent with a previous UTI. Patient has many antibiotic allergies, was treated with levofloxacin successfully in the past. At this time will treat with Cipro 500 mg p.o. b.i.d. for 5 days. Medical Records Medical records reviewed: Yes I reviewed the patient's medical records Lab Data Lab results reviewed: Yes I reviewed the patient's lab results Labs: Lab Results 12/01/24 12/01/24 12/01/24 Range/Units 21:40 22:45 22:50 WBC 9.84 (4.50-11.00) K/uL RBC 4.55 (4.00-5.20) m/uL Hgb 12.9 (12.0-16.0) gm/dL Hct 40.4 (33.0-51.0) % MCV 89 (80-100) fL MCH 28 (26-34) pg MCHC 32 (32-36) gm/dL RDW Coeff of Alee 13.5 (11.5-15.5) % Plt Count 296 (140-440) K/uL Neut % (Auto) 74.1 H (42.0-72.0) % Lymph % (Auto) 16.5 L (20-44) % Reagan % (Auto) 6.6 (0.0-11.0) % Eos % (Auto) 2.4 (0.0-7.0) % Baso % (Auto) 0.2 (0.0-3.0) % Neut # (Auto) 7.30 H (1.7-7.0) K/uL Lymph # (Auto) 1.60 (0.90-2.90) K/uL Reagan # (Auto) 0.60 (0.00-0.90) K/UL Eos # (Auto) 0.24 (0.00-0.50) K/uL Baso # (Auto) 0.02 (0.00-0.30) K/uL Abs Immat Gran (auto) 0.02 (0.00-0.30) K/uL Imm/Tot Granulo (auto) 0.2 % Sodium 135 (135-149) mmol/L Potassium 3.5 L (3.6-5.1) mmol/L Chloride 100 (96-114) mmol/L Carbon Dioxide 27 (20-32) mmol/L Anion Gap 8 (7-15) mEq/L BUN 10 (7-30) mg/dL Creatinine 0.8 (0.5-1.5) mg/dL Estimated Creat Clear 56.00 Estimated GFR 83 ml/min Glucose 198 H (60-115) mg/dL Calcium 9.3 (8.4-10.6) mg/dL Urine Color Yellow (Yellow) Urine Appearance Clear (Clear) Urine pH 6.0 (5.0-8.5) Ur Specific Deford <= 1.005 (1.000-1.030) Urine Protein Negative (Negative) Urine Glucose (UA) Negative (Negative) Urine Ketones Negative (Negative) Urine Blood Trace-intact A (Negative) Urine Nitrite Negative (Negative) Urine Bilirubin Negative (Negative) Urine Urobilinogen 0.2 (0.2-1.0) Ur Leukocyte Esterase 1+ A (Negative) Urine RBC 0-2 (0-2) Urine WBC 2-5 (0-5) Ur Squamous Epith Cells Moderate A (None-Few) Urine Bacteria Few A (None) SARS-CoV-2 (PCR) Negative SARS-CoV-2 (Negative) Influenza Type A (PCR) Negative PCR FLU A (Negative) Influenza Type B (PCR) Negative PCR FLU B (Negative) Discharge Plan Discharge Clinical Impression: Fever, Urinary incontinence, Hyperglycemia Patient Disposition: Home, Self-Care Condition: Stable Additional Instructions: You will be treated with ciprofloxacin 500 mg twice daily for 5 days for your urinary tract infection. You should follow-up with your primary care provider next week to make sure your symptoms have resolved. If you begin to feel weakness or develops vomiting, you should return to the emergency department. Your blood sugar was quite elevated today at 198. I recommend you follow-up with your primary care provider early next week to have a repeat glucose checked. Prescriptions: New ciprofloxacin HCl 500 mg tablet 500 mg PO BID 5 Days Qty: 10 0RF No Action aspirin 81 mg tablet,delayed release (DR/EC) 81 mg PO QDAY fluconazole 150 mg tablet 150 mg PO Q3D Qty: 2 0RF acetaminophen 325 mg tablet 650 mg PO Q4H PRN Rx Instructions: NO MORE THAN 4000 MG/DAY coenzyme Q10 [Co Q-10] 30 mg capsule 30 mg PO QDAY multivitamin Tablet 1 tab PO QAM buspirone 5 mg tablet 5 mg PO BID Qty: 90 3RF clobetasol 0.05 % solution topical BID clobetasol 0.05 % ointment topical .ud hydrocortisone 2.5 % ointment topical .ud Patient Comments: APPLY ON EARS TWO TIMES A DAY FOR UP TO 2 WEEKS AT A TIME. THEN TAKE 2 WEEKS OFF. REPEAT NEEDED FOR FLARES. ketoconazole 2 % shampoo topical DAILY clobetasol 0.05 % cream 1 applic topical QDAY Vitron-C 65 mg iron- 125 mg tablet,delayed release (DR/EC) 1 tab PO QDAY cholecalciferol (vitamin D3) 1,250 mcg (50,000 unit) capsule 1,250 mcg PO DAILY albuterol sulfate 90 mcg/actuation HFA aerosol inhaler 2 inh inhalation Q4-6H PRN (Reason: bronchospasm) Qty: 8.5 2RF albuterol sulfate 2.5 mg /3 mL (0.083 %) solution for nebulization 2.5 mg inhalation Q4H PRN (Reason: shortness of breath or wheezing) Qty: 90 0RF omeprazole 40 mg capsule,delayed release(DR/EC) 40 mg PO DAILY Qty: 90 0RF clindamycin HCl 300 mg capsule 300 mg PO TID Qty: 21 0RF lisinopril 20 mg tablet 20 mg PO DAILY Qty: 90 0RF fluoxetine 40 mg capsule 40 mg PO QAM Qty: 90 0RF bupropion HCl [Wellbutrin XL] 300 mg tablet extended release 24 hr 300 mg PO QAM Qty: 90 0RF rosuvastatin 10 mg tablet 10 mg PO QHS Qty: 90 0RF Follow Up/Referrals: Shayna Feliciano MD [Primary Care Provider, Family Practice] Stand Alone Forms: [facility] Info Instructions
[2024-12-01 22:26] LABS: RBC Urine 0-2 (0-2); Squamous Epithelial Cell Urine Moderate (None-Few)
[2024-12-01 22:27] LABS: Bacteria Urine Few
[2024-12-01 22:56] LABS: Basophils Absolute Auto 0.02 K/uL (0.00-0.30); Basophils Percent Auto 0.2 % (0.0-3.0); Eosinophils Absolute Auto 0.24 K/uL (0.00-0.50); Eosinophils Percent Auto 2.4 % (0.0-7.0); Hematocrit 40.4 % (33.0-51.0); Hemoglobin* 12.9 gm/dL (12.0-16.0); Immature Granulocytes Abs Auto 0.02 K/uL (0.00-0.30); Immature Granulocytes Pct Auto 0.2 %; Lymphocytes Percent Auto 16.5 % (20-44); Mean Corpuscular HGB Conc 32 gm/dL (32-36); Mean Corpuscular Hemoglobin 28 pg (26-34); Mean Corpuscular Volume 89 fL (80-100); Monocytes Percent Auto 6.6 % (0.0-11.0); Neutrophils Percent Auto 74.1 % (42.0-72.0); Platelet Count* 296 K/uL (140-440); RDW Coefficient of Variation % 13.5 % (11.5-15.5); Red Blood Count 4.55 m/uL (4.00-5.20); White Blood Count* 9.84 K/uL (4.50-11.00)
[2024-12-01 23:00] LABS: Slide Review Reflex No
[2024-12-01 23:01] LABS: Chloride* 100 mmol/L (96-114)
[2024-12-01 23:02] LABS: Potassium* 3.5 mmol/L (3.6-5.1); Sodium* 135 mmol/L (135-149)
[2024-12-01 23:05] LABS: Anion Gap 8 mEq/L (7-15); Blood Urea Nitrogen* 10 mg/dL (7-30); Calcium* 9.3 mg/dL (8.4-10.6); Carbon Dioxide* 27 mmol/L (20-32); Creatinine* 0.8 mg/dL (0.5-1.5); Estimated Glomerular Filt Rate 83 ml/min; Glucose* 198 mg/dL (60-115)
[2024-12-01 23:29] LABS: PCR FLU A Negative PCR FLU A (Negative); PCR FLU B Negative PCR FLU B (Negative); SARS PCR* Negative SARS-CoV-2 (Negative)
== END 2024-12-02 00:08 | disposition home or self-care (01) ==
PROVIDERS: Emergency Provider Family Medicine; PCP Family Medicine
DX: R35.0 Frequency of micturition (principal); R73.9 Hyperglycemia, unspecified; R50.9 Fever, unspecified; R09.81 Nasal congestion
CPT/HCPCS: 36415; 80048; 81001; 85025; 87086; 87631; 99283; 99284

== ENCOUNTER 2024-12-16 11:01 | Emergency (ER) | payer BC, SELFPAY ==
--- OUTSIDE RECORDS SUMMARY | 2024-12-16 11:03 | XMS_ITS | Clinical Summary ---
Author Organization [email or web address] [facility] Address [address] [place] [id number] Care Team Providers Care Fx Artist Name Role Phone Shayna Feliciano MD Primary Care Provider [phone] Allergies Active Allergy Reactions Criticality Noted Date [...] on file Legal Sex Female 5:27 AM VP CONSTRUCTION Gender Identity Not on file Sexual Orientation [...] patient's age to complete this topic Insurance [employer] [facility] Care Teams Fx Artist Relationship Specialty Start Date End Date Shayna Feliciano MD PCP - General 08/18/22
--- OUTSIDE RECORDS SUMMARY | 2024-12-16 11:03 | XMS_ITS | Clinical Summary ---
Author Organization [place] Address [address] [place] [address]. [place] [address] Care Team Providers Care Fitness Sales Associate Name Role Phone Shayna Feliciano MD Primary Care Provider [phone] Luis Manzo DPM Unavailable [phone] Allergies Active Allergy Reactions Criticality Noted Date [...] Department Care Team Description 10/08/2024 Medical Correspondence [facility] Information Management [address] [place] [address] [address] [place] [address] Scan, Non-Provider from Last 3 Months Immunizations [...] on file Legal Sex Female 2:58 AM CAFETERIA COUNTER ATTENDANT Gender Identity Not on file Sexual Orientation Not on file Last Filed Vital Signs Vital Sign Reading Time Taken Comments Blood Pressure 146/80 02/03/2024 1:19 PM CDT Pulse 70 02/03/2024 1:19 PM CDT Temperature 36.9 C (98.5 F) 09/27/2004 10:00 AM CAFETERIA COUNTER ATTENDANT Respiratory Rate - - Oxygen Saturation - [...] history exists LUNG CANCER SCREENING 2011 ZOSTER VACCINE (1 of 2) 2011 DTAP/TDAP/TD VACCINE (2 - Td or Tdap) 03/13/2020 03/13/2010, 07/12/1998 RSV VACCINE (1 - Risk 60-74 years 1-dose series) 2021 PNEUMOCOCCAL VACCINE 50+ YEARS (3 of 3 - PCV20 or PCV21) 12/01/2022 12/01/2017, 06/16/2016 COVID-19 VACCINE (3 - season) 2024 10/25/2020, 09/27/2020 PHQ-2 (once per calendar year) 2024 DIABETIC FOOT EXAM 10/18/2024 10/19/2023 INFLUENZA VACCINE (Season Ended) 2025 05/11/2023, 04/27/2022, 08/07/2020, Additional history exists HPV VACCINE Aged Out No longer eligi ble based on patient's age to complete this topic MENINGITIS VACCINE Aged Out No longer eligible based on patient's age to [...] BOTH BREASTS (DIAG) Routine 09/30/2004 10:48 AM CAFETERIA COUNTER ATTENDANT Pain in limb from Last 3 Months or Most Recently Relevant to Health Maintenance Results * Potassium (External Result) (10/03/2024 9:00 AM CDT) Potassium (External) 4.3 3.6 - 5.1 mmol/L [facility] Blood 10/03/2024 9:00 AM CDT [facility] - 10/03/2024 9:00 AM CDT [facility] - External Lab Results Provider Outside LAB - HIM [place] [address], [facility] [phone] * (ABNORMAL) Glucose (External Result) (10/03/2024 9:00 AM CDT) Glucose (External) 127(A) 60 - 115 mg/dL [facility] Blood 10/03/2024 9:00 AM CDT [facility] - 10/03/2024 9:00 AM CDT [facility] - External Lab Results us Provider Outside LAB - HIM EXTERNAL RESULT Final Result Performing Organization Address City/[facility]/[place] [address], [facility] [phone] * Creatinine (External Result) (10/03/2024 9:00 AM CDT) Creatinine (External) 0.7 0.5 - 1.5 mg/dL [facility] Blood 10/03/2024 9:00 AM CDT [facility] - 10/03/2024 9:00 AM CDT [facility] - External Lab Results us Provider Outside LAB - HIM EXTERNAL RESULT Final Result Performing Organization Address [facility]/ZIP Co de Phone Number [address] [phone] * AST (External Result) (10/03/2024 9:00 AM CDT) AST (External) 28 12 - 35 U/L [facility] Blood 10/03/2024 9:00 AM CDT [facility] - 10/03/2024 9:00 AM CDT [facility] - External Lab Results us Provider Outside LAB - HIM EXTERNAL RESULT Final Result Performing Organization Address [facility] de Phone Number [id number] [place] [address] * ALT (External Result) (10/03/2024 9:00 AM CDT) ALT (External) 23 4 - 35 U/L [facility] Blood 10/03/2024 9:00 AM CDT [facility] - 10/03/2024 9:00 AM CDT [facility] - External Lab Results us Provider Outside LAB - HIM EXTERNAL RESULT Final Result Performing Organization Address [facility]/ZIP Co de Phone Number [phone] [place] [address] * Lab Result - HIM Scan (10/03/2024 [...] BLOOD ORDERABLES Final Result Performing Organization Address City/[facility] Co de Phone Number MISYS * (ABNORMAL) A.M.A. LIPID PANEL (10/20/2004 11:00 AM CDT) Cholesterol 235(H) 0 - 200 mg/dL [facility] Comment: Cholesterol Reference Range: <200 The NCEP recommends further evaluation of: 1. Patients with cholesterol greater than 200 mg/dL if additional risk factors are present. 2. All patients with a cholesterol greater than 240 mg/dL. Triglycerides 126 0 - 150 mg/dL [facility] HDL Cholesterol 43 >40 mg/dL [facility] LDL Cholesterol Calculated 167(H) 0 - 129 mg/dL [facility] VLDL-Cholesterol 25 0 - 30 mg/dL [facility] Cholesterol/HDL Ratio 5.5(H) 0.0 - 5.0 [facility] 10/20/2004 11:0 0 AM CDT 10/20/2004 11:03 AM CDT Jesi Herring MD LABORATORY Final Result Performing Organization Address City/State/[facility] Co de Phone Number [facility] [address] [place] [address] * A THIN LAYER PAP SCREEN (10/20/2004 12:00 AM CDT) PAP NIL COPATH Copath Report Patient Name: NIURKA JEFFERSON MR#: [id number] Specimen #: [id number] Collected: 10/20/2004 Received: 10/21/2004 Reported: 10/22/2004 14:35 Ordering Phy(s): JESI HERRING SPECIMEN/STAIN PROCESS: Pap thin layer prep screening Pap-Cyto x 1, Reflex HPV x 1 SOURCE: Cervical, endocervical Pap thin layer prep screening SPECIMEN ADEQUACY: Satisfactory for evaluation. -Transitional zone component present. CYTOLOGIC INTERPRETATION: Negative for Intraepithelial Lesion or Malignancy Electronically signed out by: DASHA Gonzalez (ASCP) Processed and screened at [facility] CLINICAL HISTORY: LMP: 10-03-04 Previous normal pap Date of Last Pap: 2001, TESTING LAB LOCATION: [address] [phone] COLLECTION SITE: Client: [facility] Location: [facility] (R) COPATH 10/20/2004 10/21/2004 10: 22 AM CDT us Jesi Herring MD LABORATORY Final Result POLLO * MAMMOGRAM, BOTH BREASTS (DIAG) (09/30/2004 10:48 AM CAFETERIA COUNTER ATTENDANT) Anatomical Region Laterality Modality Other 09/30/2004 10:4 8 AM CAFETERIA COUNTER ATTENDANT Impressions 10/01/2004 3:22 PM CAFETERIA COUNTER ATTENDANT DIAGNOSTIC MAMMOGRAM, BILATERAL AND BREAST ULTRASOUND, RIGHT [...] Most Recently Relevant to Health Maintenance Insurance [facility] [employer] [place] [facility] [employer] [place] Care Teams Fitness Sales Associate Relationship Specialty Start Date End Date Shayna Feliciano MD [address] [address] PCP - General Family Medicine 10/19/23 [place] [phone] [address] Assigned Musculoskeletal Provider 11/02/23
[2024-12-16 11:13] VITALS: BP 148/81; PULSE 95; RESP 20; TEMP 36.8; BMI 39.3
[2024-12-16] MEDS: KETOROLAC 30 MG/ML inj 60 MG IM (11:50)
--- NOTE | 2024-12-16 11:52 | ED.GENADULT ---
HPI - General Adult General Chief complaint: Back Injury/Pain Stated complaint: Back Pain Time Seen by Provider: 12/16/24 11:03 Source: patient Mode of arrival: ambulatory Limitations: no limitations History of Present Illness HPI narrative: 64-year-old female presenting today with low back pain that radiates down the back of her right leg. Pain started yesterday she noticed that when she woke up. Was worse this morning. She denies tripping, falling or any trauma to the area. Patient states that last June she had a pelvic fracture that occurred spontaneously without trauma. She is wondering if she has another 1 at this time. She has been using her walker to get around. She denies any loss of bowel or bladder function, no numbness in the groin area, no fevers or chills. She denies nausea or vomiting. No changes in her appetite. No difficulty lifting her legs or feet. Pain is located in the right buttock. Related Data Home Medications ?Medication ?Instructions ?Recorded ?Confirmed acetaminophen 325 mg tablet 650 mg PO Q4H PRN 01/27/22 10/18/24 coenzyme Q10 30 mg capsule (Co 30 mg PO QDAY 01/29/22 10/18/24 Q-10) multivitamin 1 tab PO QAM 01/29/22 10/18/24 aspirin 81 mg tablet,delayed 81 mg PO QDAY 05/11/23 10/18/24 release clobetasol 0.05 % scalp solution topical BID 04/13/24 10/18/24 clobetasol 0.05 % topical ointment topical .ud 04/13/24 10/18/24 hydrocortisone 2.5 % topical topical .ud 04/13/24 10/18/24 ointment ketoconazole 2 % shampoo topical DAILY 04/13/24 10/18/24 cholecalciferol (vitamin D3) 1,250 1,250 mcg PO DAILY 05/19/24 10/18/24 mcg (50,000 unit) capsule clobetasol 0.05 % topical cream 1 applic topical QDAY 05/19/24 10/18/24 iron,carbonyl 65 mg-vitamin C 125 1 tab PO QDAY 05/19/24 10/18/24 mg tablet,delayed release (Vitron-C) Previous Rx's ?Medication ?Instructions ?Recorded buspirone 5 mg tablet 5 mg PO BID #90 tabs 10/04/23 albuterol sulfate 90 mcg/actuation 2 inh inhalation Q4-6H PRN 05/22/24 aerosol inhaler bronchospasm #8.5 grams albuterol sulfate 2.5 mg/3 mL 2.5 mg (3 mL) inhalation Q4H PRN 06/23/24 (0.083 %) solution for nebulization shortness of breath or wheezing #90 mL fluconazole 150 mg tablet 150 mg PO Q3D 2 doses #2 tabs 10/16/24 clindamycin HCl 300 mg capsule 300 mg PO TID #21 caps 10/20/24 bupropion HCl 300 mg 24 hr tablet, 300 mg PO QAM #90 tabs 11/13/24 extended release (Wellbutrin XL) fluoxetine 40 mg capsule 40 mg PO QAM #90 caps 11/13/24 lisinopril 20 mg tablet 20 mg PO DAILY #90 tabs 11/13/24 rosuvastatin 10 mg tablet 10 mg PO QHS #90 tabs 11/13/24 ciprofloxacin HCl 500 mg tablet 500 mg PO BID 5 days #10 tabs 12/01/24 omeprazole 40 mg capsule,delayed 40 mg PO DAILY #90 caps 12/13/24 release methylprednisolone 4 mg tablets in See Rx Instructions PO .COMPLEX 12/16/24 a dose pack (Medrol (Trevor)) #21 ea Allergies Allergy/AdvReac Type Severity Reaction Status Date / Time azithromycin Allergy Intermediate Light Verified 12/16/24 11:13 Headed hydromorphone Allergy Intermediate Itchy Verified 12/16/24 11:13 lactose Allergy Intermediate Diarrhea Verified 12/16/24 11:13 zolpidem Allergy Intermediate Fatigue & Verified 12/16/24 11:13 Vertigo Cephalosporins Allergy Mild Nausea/Vomi Verified 12/16/24 11:13 ting codeine Allergy Mild N-V Verified 12/16/24 11:13 penicillin V Allergy Mild Hives Verified 12/16/24 11:13 nitrofurantoin Allergy Unknown itchy? Verified 12/16/24 11:13 atorvastatin AdvReac Mild myalgia Verified 12/16/24 11:13 Review of Systems Status of ROS: Reports: 10 or more systems reviewed and unremarkable except as noted in History and below [facility] Medical History CLAUDIA (obstructive sleep apnea) ?G47.33 - Obstructive sleep apnea (adult) (pediatric) (ICD-10) COPD (chronic obstructive pulmonary disease) ?J44.9 - Chronic obstructive pulmonary disease, unspecified (ICD-10) Anxiety ?F41.9 - Anxiety disorder, unspecified (ICD-10) Hypertension ?I10 - Essential (primary) hypertension (ICD-10) Osteoarthritis ?M19.90 - Unspecified osteoarthritis, unspecified site (ICD-10) GERD (gastroesophageal reflux disease) ?K21.9 - Gastro-esophageal reflux disease without esophagitis (ICD-10) History of open sigmoidectomy (08/23/12) ?Z98.890 - Other specified postprocedural states (ICD-10) ?Z90.49 - Acquired absence of other specified parts of digestive tract (ICD-10) 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 (ICD-10) Mild intermittent asthma (07/24/11) ?J45.20 - Mild intermittent asthma, uncomplicated (ICD-10) Surgical History H/O laparoscopy (03/10/12) ?Z98.890 - Other specified postprocedural states (ICD-10) Status post tonsillectomy ?Z90.89 - Acquired absence of other organs (ICD-10) Status post appendectomy (~02/2012) ?Z90.49 - Acquired absence of other specified parts of digestive tract (ICD-10) History of laparoscopic cholecystectomy (03/10/12) ?Z90.49 - Acquired absence of other specified parts of digestive tract (ICD-10) History of hysterectomy (05/20/06) ?Z90.710 - Acquired absence of both cervix and uterus (ICD-10) History of carpal tunnel surgery (~1989) ?Z98.890 - Other specified postprocedural states (ICD-10) Family History Brother Aneurysm Lung cancer Maternal Grandmother Colorectal cancer Father CHF (congestive heart failure) Coronary artery disease Diabetes Mother Coronary artery disease Stroke Depression Diabetes High blood pressure Rheumatic fever Social History Narrative: Does not drink alcohol Does not use illicit drugs Smoker- 0.5 packs per day Smoking Status: Former smoker Do you use any of these nicotine containing products: None Second hand tobacco smoke exposure: Yes How often do you have a drink containing alcohol: monthly or less AUDIT-C Alcohol total score: 1 Non-prescribed substance use: denies use Exam Narrative: Exam Narrative: Overweight, well-developed patient in no acute distress. Alert and oriented. Answers questions appropriately. Mood and affect are appropriate. Thoughts are goal oriented and rational. No tangential or magical thinking noted. Patient speaks in full sentences without needing to catch her breath. Patient does not appear ill or toxic. HEENT: Normocephalic atraumatic. Pupils are equally round reactive to light. Extraocular muscles are intact. Conjunctivae are moist without any icterus noted. Moist mucous membranes. Abdomen: Soft and nontender nondistended with normal bowel sounds. Extremities: Bilateral lower extremities are without edema. Strength is 5/5 of the lower extremities, both proximal and distal muscle groups. Reflexes 2+ and symmetric at the knees. No footdrop is visualized. Patient does not have any tenderness with firm palpation at her pelvis. Skin: Well perfused without any obvious rashes. Back: Has normal appearance. She has no tenderness to palpation of thoracic or lumbar spine. No tenderness of the paraspinal musculature. She has tenderness deep into the right buttocks region. Straight leg test is positive on that side. Const: Vital Signs, click to edit/add: Vital Signs - 24 hr 12/16/24 11:13 Temperature 98.3 F Pulse Rate [Pulse Oximeter] 95 Respiratory Rate 20 Blood Pressure [Ri ght Upper Arm] 148/81 H Oxygen Delivery Me thod Room Air Course Course ED Course: 60 mg IM Toradol given in the ED today. Vital Signs Vital signs: Initial Vital Signs Temperature 98.3 F 12/16/24 11:13 Temperature Source Temporal Artery Scan 12/16/24 11:13 Pulse Rate 95 12/16/24 11:13 Respiratory Rate 20 12/16/24 11:13 Blood Pressure 148/81 H 12/16/24 11:13 Blood Pressure Mean 103 12/16/24 11:13 Blood Pressure Position Semi-Fowlers 12/16/24 11:13 Oxygen Delivery Method Room Air 12/16/24 11:13 Vital Signs Temperature 98.3 F 12/16/24 11:13 Pulse Rate 95 12/16/24 11:13 Respiratory Rate 20 12/16/24 11:13 Blood Pressure 148/81 H 12/16/24 11:13 Oxygen Delivery Method Room Air 12/16/24 11:13 Temperature 98.3 F 12/16/24 11:13 Pulse Rate 95 12/16/24 11:13 Respiratory Rate 20 12/16/24 11:13 Blood Pressure 148/81 H 12/16/24 11:13 Oxygen Delivery Method Room Air 12/16/24 11:13 Medications Administered Medications: Generic Name Dose Route Start Last Admin Trade Name Freq PRN Reason Stop Dose Admin Ketorolac Tromethamine 60 mg 12/16/24 11:41 12/16/24 11:50 Ketorolac 30 Mg/Ml Inj IM 12/16/24 11:42 60 mg ONCE ONE Administration Medical Decision Making MDM Narrative Medical decision making narrative: 61-year-old female with low back pain, symptoms consistent with lumbar radiculopathy. We discussed symptomatic treatment, use of steroids and acetaminophen. Discussed follow-up with primary care and the potential need for physical therapy. Discharge Plan Discharge Clinical Impression: Acute lumbar radiculopathy Patient Disposition: Home, Self-Care Additional Instructions: Take all steroids as prescribed. Okay to use oxycodone that you have as prescribed/as needed. Follow-up with your primary care provider early next week if you are not improving over the weekend. Pain can last 1-2 weeks. Return to the ER if you develop fevers or worsening pain. If you are able to check your sugars while you are taking the steroid, you should check them regularly as steroid can increase your blood sugar levels. Prescriptions: New methylprednisolone [Medrol (Trevor)] 4 mg tablets,dose pack See Rx Instructions .ROUTE .COMPLEX Qty: 21 0RF Rx Instructions: orally per package directions No Action aspirin 81 mg tablet,delayed release (DR/EC) 81 mg PO QDAY fluconazole 150 mg tablet 150 mg PO Q3D Qty: 2 0RF acetaminophen 325 mg tablet 650 mg PO Q4H PRN Rx Instructions: NO MORE THAN 4000 MG/DAY coenzyme Q10 [Co Q-10] 30 mg capsule 30 mg PO QDAY multivitamin Tablet 1 tab PO QAM buspirone 5 mg tablet 5 mg PO BID Qty: 90 3RF clobetasol 0.05 % solution topical BID clobetasol 0.05 % ointment topical .ud hydrocortisone 2.5 % ointment topical .ud Patient Comments: APPLY ON EARS TWO TIMES A DAY FOR UP TO 2 WEEKS AT A TIME. THEN TAKE 2 WEEKS OFF. REPEAT NEEDED FOR FLARES. ketoconazole 2 % shampoo topical DAILY clobetasol 0.05 % cream 1 applic topical QDAY Vitron-C 65 mg iron- 125 mg tablet,delayed release (DR/EC) 1 tab PO QDAY cholecalciferol (vitamin D3) 1,250 mcg (50,000 unit) capsule 1,250 mcg PO DAILY ciprofloxacin HCl 500 mg tablet 500 mg PO BID 5 Days Qty: 10 0RF albuterol sulfate 90 mcg/actuation HFA aerosol inhaler 2 inh inhalation Q4-6H PRN (Reason: bronchospasm) Qty: 8.5 2RF albuterol sulfate 2.5 mg /3 mL (0.083 %) solution for nebulization 2.5 mg inhalation Q4H PRN (Reason: shortness of breath or wheezing) Qty: 90 0RF clindamycin HCl 300 mg capsule 300 mg PO TID Qty: 21 0RF lisinopril 20 mg tablet 20 mg PO DAILY Qty: 90 0RF fluoxetine 40 mg capsule 40 mg PO QAM Qty: 90 0RF bupropion HCl [Wellbutrin XL] 300 mg tablet extended release 24 hr 300 mg PO QAM Qty: 90 0RF rosuvastatin 10 mg tablet 10 mg PO QHS Qty: 90 0RF omeprazole 40 mg capsule,delayed release(DR/EC) 40 mg PO DAILY Qty: 90 0RF Follow Up/Referrals: Shayna Feliciano MD [Primary Care Provider, Family Practice] Stand Alone Forms: My [employer] Info Instructions
== END 2024-12-16 11:58 | disposition home or self-care (01) ==
LOC: ED 11:49
PROVIDERS: Emergency Provider Family Medicine; PCP Family Medicine
DX: M54.16 Radiculopathy, lumbar region (principal)
CPT/HCPCS: 96372; 99283; 99284; J1885

== ENCOUNTER 2025-01-12 20:02 | Emergency (ER) | payer BC, SELFPAY ==
--- OUTSIDE RECORDS SUMMARY | 2025-01-12 20:05 | XMS_ITS | Clinical Summary ---
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 Gender Identity Not on file Sexual Orientation [...] Health Maintenance Due Date Last Done Comments Tetanus booster 1972 Depression screening for age 12+ 1973 HIV for age 15-65 1976 BMI (ht and wt on same day) for age 18+ 1979 Hepatitis C screening for ag e 18-79 1979 Pneumococcal series for age 50+ (1 of 2 - PCV) 1980 Pap test for age 21-65 1982 Colonoscopy through age 75 2006 Lipids for age 45-75 2006 Mammogram for age 45-75 2006 Zoster (shingles) series for age 50+ (1 of 2) 2011 RSV vaccine for adults or (1 - Risk 60-74 years 1-dose series) 2021 COVID-19 vaccine series (3 - 2023- season) 2024 10/25/2020, 09/27/2020 Influenza Vaccine (#1) 2025 Hepatitis B series for 19+ Aged Out N o longer eligible based on patient's age to complete this topic Insurance COUNT INCLUDES [facility] Care Teams Gear Coding Machine Operator Relationship Specialty Start Date End Date Shayna Feliciano MD PCP - General 08/18/22
--- OUTSIDE RECORDS SUMMARY | 2025-01-12 20:05 | XMS_ITS | Clinical Summary ---
Author Organization [facility] Address [address] [place] [address]. 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 LIPID PANEL (10/20/2004 11:00 AM CDT) Cholesterol 235(H) 0 - 200 mg/dL [facility] Comment: Cholesterol Reference Range: <200 The NCEP recommends further evaluation of: 1. Patients with cholesterol greater than 200 mg/dL if additional risk factors are present. 2. All patients with a cholesterol greater than 240 mg/dL. Triglycerides 126 0 - 150 mg/dL [facility] HDL Cholesterol 43 >40 mg/dL [facility] LDL Cholesterol Calculated 167(H) 0 - 129 mg/dL [facility] VLDL-Cholesterol 25 0 - 30 mg/dL [facility] Cholesterol/HDL Ratio 5.5(H) 0.0 - 5.0 [facility] 10/20/2004 11:0 0 AM CDT 10/20/2004 11:03 AM CDT us Jesi Herring MD LABORATORY Final Result Performing Organization Address City/[facility] Co de Phone Number [address] [address] * A THIN LAYER PAP SCREEN (10/20/2004 12:00 AM CDT) PAP NIL COPATH Copath Report Patient Name: NIURKA JEFFERSON MR#: [id number] Specimen #: [id number] Collected: 10/20/2004 Received: 10/21/2004 Reported: 10/22/2004 14:35 Ordering Phy(s): JESI HERRING SPECIMEN/STAIN PROCESS: Pap thin layer prep screening Pap-Cyto x 1, Reflex HPV x 1 SOURCE: Cervical, endocervical Pap thin layer prep screening SPECIMEN ADEQUACY: Satisfactory for evaluation. -Transitional zone component present. CYTOLOGIC INTERPRETATION: Negative for Intraepithelial Lesion or Malignancy Electronically signed out by: DASHA Gonzalez (ASCP) Processed and screened at [facility] CLINICAL HISTORY: LMP: 10-03-04 Previous normal pap Date of Last Pap: 2001, TESTING LAB LOCATION: [address] [address] COLLECTION SITE: Client: [facility] Location: [facility] (R) COPATH 10/20/2004 10/21/2004 10: 22 AM CDT us Jesi Herring MD LABORATORY Final Result COPATH * MAMMOGRAM, BOTH BREASTS (DIAG) (09/30/2004 10:48 AM LAST DIPPER) Anatomical Region Laterality Modality Other 09/30/2004 10:4 8 AM LAST DIPPER Impressions 10/01/2004 3:22 PM LAST DIPPER DIAGNOSTIC MAMMOGRAM, BILATERAL AND BREAST ULTRASOUND, RIGHT [...] Most Recently Relevant to Health Maintenance Insurance [facility] [place] [facility] [place] Care Teams Business Controller Relationship Specialty Start Date End Date Shayna Feliciano MD [address] [id number] PCP - General Family Medicine 10/19/23 Luis Manzo DPM [phone] [address] Assigned Musculoskeletal Provider 11/02/23
[2025-01-12 20:29] VITALS: BP 161/70; RESP 16; TEMP 37.9; O2SAT 98; BMI 31.3
--- NOTE | 2025-01-12 20:44 | CRLHL7_ITS ---
For Patients: As a result of the Century Cures Act, medical imaging exams and procedure reports are released immediately into your electronic medical record. You may view this report before your referring provider. If you have questions, please contact your health care provider. INDICATION: Evaluate for sacral insufficiency fracture. TECHNIQUE: CT pelvis without contrast. COMPARISON: CT abdomen and pelvis on June 20, 2019. FINDINGS: Bones: Sclerosis of the right sacrum and iliac bone with osseous erosion, irregularity and diastasis of the right sacroiliac joint (10/03, ). No definite fracture. Left SI joint is intact. Diffuse osseous demineralization. Mild bilateral femoroacetabular and left SI joint space narrowing and juxta-articular osteophytosis. Moderate degenerative changes of the pubic symphysis. Soft tissues: Asymmetric thickening and inflammation of the right iliacus muscle. Evaluation for abscess is limited due to the lack of intravenous contrast. Moderate calcification of the abdominal aorta. Intact sigmoid anastomosis. Sigmoid colonic diverticulosis without diverticulitis. Small fat containing umbilical hernia. Hysterectomy. IMPRESSION: 1. Osteomyelitis of the right sacroiliac joint with sclerosis, erosion and diastasis. 2. Asymmetric thickening and inflammation of the right iliacus muscle. Evaluation for a phlegmon/abscess is limited due to the lack of intravenous contrast. 3. Colonic diverticulosis without diverticulitis. These findings were discussed with Dr. Mcgovern at 10:18 p.m. on January 12, 2025. Please note that all CT scans at this facility use dose modulation, iterative reconstruction, and/or weight-based dosing when appropriate to reduce radiation dose to as low as reasonably achievable. Dictated by Janna Krishnan MD @ 01/12/2025 10:19:44 PM (Electronically Signed)
--- NOTE | 2025-01-12 20:51 | ED.GENADULT ---
HPI - General Adult General Date Seen: 01/12/25 <Shayna Cornejo MD - Last Filed: 01/15/25 17:25> Chief complaint: Back Injury/Pain <Shayna Cornejo MD - Last Filed: 01/15/25 17:25> Stated complaint: back pain <Shayna Cornejo MD - Last Filed: 01/15/25 17:25> Time Seen by Provider: 01/12/25 20:32 <Shayna Cornejo MD - Last Filed: 01/15/25 17:25> History of Present Illness HPI narrative: Patient is a 64-year-old woman here with pain in her right SI, right low back, right anterolateral hip which started earlier today. She does have a history of pain in this area previously. We saw her here in June couple of times and then she had follow-up with primary care in July, she had a CT scan in June in the ER and then followed up with a lumbar MRI which showed abnormal findings in the SI joint on the right and a sacral insufficiency fracture. From there she was referred to Orthopedics, she says she saw [facility], they did an MRI presumably of her sacrum, told her she had a sacral insufficiency fracture, that she should take it easy and it should heal over 6-10 weeks. She notes she has continued to have problems intermittently, denies acute trauma, no fevers or neurologic changes. At the beginning of December she was seen did not have in imaging at that time, was treated for radiculopathy with oxycodone, prednisone, had a shot of Toradol here. She said she felt improved after about a week. Today, pain recurred and is severe. Worsened with weight-bearing and to some degree position changes although it hurts all the time. She does not have true radicular pain, pain radiates into the anterior upper thigh a but not down the leg. She does not describe weakness or numbness. No bowel or bladder changes. <Shayna Cornejo MD - Last Filed: 01/15/25 17:25> Related Data Home medications: Home Medications ?Medication ?Instructions ?Recorded ?Confirmed acetaminophen 325 mg tablet 650 mg PO Q4H PRN 01/27/22 10/18/24 coenzyme Q10 30 mg capsule (Co 30 mg PO QDAY 01/29/22 10/18/24 Q-10) multivitamin 1 tab PO QAM 01/29/22 10/18/24 aspirin 81 mg tablet,delayed 81 mg PO QDAY 05/11/23 10/18/24 release clobetasol 0.05 % scalp solution topical BID 04/13/24 10/18/24 clobetasol 0.05 % topical ointment topical .ud 04/13/24 10/18/24 hydrocortisone 2.5 % topical topical .ud 04/13/24 10/18/24 ointment ketoconazole 2 % shampoo topical DAILY 04/13/24 10/18/24 cholecalciferol (vitamin D3) 1,250 1,250 mcg PO DAILY 05/19/24 10/18/24 mcg (50,000 unit) capsule clobetasol 0.05 % topical cream 1 applic topical QDAY 05/19/24 10/18/24 iron,carbonyl 65 mg-vitamin C 125 1 tab PO QDAY 05/19/24 10/18/24 mg tablet,delayed release (Vitron-C) Previous Rx's ?Medication ?Instructions ?Recorded buspirone 5 mg tablet 5 mg PO BID #90 tabs 10/04/23 albuterol sulfate 2.5 mg/3 mL 2.5 mg (3 mL) inhalation Q4H PRN 06/23/24 (0.083 %) solution for nebulization shortness of breath or wheezing #90 mL fluconazole 150 mg tablet 150 mg PO Q3D 2 doses #2 tabs 10/16/24 clindamycin HCl 300 mg capsule 300 mg PO TID #21 caps 10/20/24 bupropion HCl 300 mg 24 hr tablet, 300 mg PO QAM #90 tabs 11/13/24 extended release (Wellbutrin XL) fluoxetine 40 mg capsule 40 mg PO QAM #90 caps 11/13/24 lisinopril 20 mg tablet 20 mg PO DAILY #90 tabs 11/13/24 rosuvastatin 10 mg tablet 10 mg PO QHS #90 tabs 11/13/24 ciprofloxacin HCl 500 mg tablet 500 mg PO BID 5 days #10 tabs 12/01/24 omeprazole 40 mg capsule,delayed 40 mg PO DAILY #90 caps 12/13/24 release methylprednisolone 4 mg tablets in See Rx Instructions PO .COMPLEX 12/16/24 a dose pack (Medrol (Trevor)) #21 ea albuterol sulfate 90 mcg/actuation 2 inh inhalation Q4-6H PRN 12/28/24 aerosol inhaler bronchospasm #8.5 grams <Shayna Cornejo MD - Last Filed: 01/15/25 17:25> Allergies/adverse reactions: Allergies Allergy/AdvReac Type Severity Reaction Status Date / Time azithromycin Allergy Intermediate Light Verified 01/12/25 20:33 Headed hydromorphone Allergy Intermediate Itchy Verified 01/12/25 20:33 lactose Allergy Intermediate Diarrhea Verified 01/12/25 20:33 zolpidem Allergy Intermediate Fatigue & Verified 01/12/25 20:33 Vertigo Cephalosporins Allergy Mild Nausea/Vomi Verified 01/12/25 20:33 ting codeine Allergy Mild N-V Verified 01/12/25 20:33 penicillin V Allergy Mild Hives Verified 01/12/25 20:33 nitrofurantoin Allergy Unknown itchy? Verified 01/12/25 20:33 atorvastatin AdvReac Mild myalgia Verified 01/12/25 20:33 <Shayna Cornejo MD - Last Filed: 01/15/25 17:25> Review of Systems Status of ROS: Reports: 6 or more systems reviewed and unremarkable except as noted in History and below <Shayna Cornejo MD - Last Filed: 01/15/25 17:25> [facility] Medical History: Medical History CLAUDIA (obstructive sleep apnea) ?G47.33 - Obstructive sleep apnea (adult) (pediatric) (ICD-10) COPD (chronic obstructive pulmonary disease) ?J44.9 - Chronic obstructive pulmonary disease, unspecified (ICD-10) Anxiety ?F41.9 - Anxiety disorder, unspecified (ICD-10) Hypertension ?I10 - Essential (primary) hypertension (ICD-10) Osteoarthritis ?M19.90 - Unspecified osteoarthritis, unspecified site (ICD-10) GERD (gastroesophageal reflux disease) ?K21.9 - Gastro-esophageal reflux disease without esophagitis (ICD-10) History of open sigmoidectomy (08/23/12) ?Z98.890 - Other specified postprocedural states (ICD-10) ?Z90.49 - Acquired absence of other specified parts of digestive tract (ICD-10) 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 (ICD-10) Mild intermittent asthma (07/24/11) ?J45.20 - Mild intermittent asthma, uncomplicated (ICD-10) <Shayna Cornejo MD - Last Filed: 01/15/25 17:25> Surgical History: Surgical History H/O laparoscopy (03/10/12) ?Z98.890 - Other specified postprocedural states (ICD-10) Status post tonsillectomy ?Z90.89 - Acquired absence of other organs (ICD-10) Status post appendectomy (~02/2012) ?Z90.49 - Acquired absence of other specified parts of digestive tract (ICD-10) History of laparoscopic cholecystectomy (03/10/12) ?Z90.49 - Acquired absence of other specified parts of digestive tract (ICD-10) History of hysterectomy (05/20/06) ?Z90.710 - Acquired absence of both cervix and uterus (ICD-10) History of carpal tunnel surgery (~1989) ?Z98.890 - Other specified postprocedural states (ICD-10) <Shayna Cornejo MD - Last Filed: 01/15/25 17:25> Family History: Family History Brother Aneurysm Lung cancer Maternal Grandmother Colorectal cancer Father CHF (congestive heart failure) Coronary artery disease Diabetes Mother Coronary artery disease Stroke Depression Diabetes High blood pressure Rheumatic fever <Shayna Cornejo MD - Last Filed: 01/15/25 17:25> Social History: Social History Narrative: Does not drink alcohol Does not use illicit drugs Smoker- 0.5 packs per day Smoking Status: Former smoker Do you use any of these nicotine containing products: None Second hand tobacco smoke exposure: Yes How often do you have a drink containing alcohol: monthly or less AUDIT-C Alcohol total score: 1 Non-prescribed substance use: denies use <Shayna Cornejo MD - Last Filed: 01/15/25 17:25> Exam Narrative: Exam Narrative: Vital signs reviewed In general, alert, nontoxic woman. She looks uncomfortable. Head: Normocephalic, atraumatic. Eyes: Sclera clear. Pupils equal and reactive. ENT: Mucous membranes moist. Neck: Supple without adenopathy. Heart: Regular rate and rhythm without murmur. Lungs: Clear. No increased work of breathing, crackles or wheezes. Abdomen: Soft, nontender to palpation. Back: She does not have any mid line back tenderness. She really does not have significant tenderness over the right SI joint as well nor does she have tenderness over the hip. Extremities: Well perfused, pulses intact. No significant edema. Neurologic: Alert, conversant. Speech fluent, face symmetric. Moves all extremities equally. Strength is 5 of 5 in bilateral lower extremities. Station intact to light touch. Skin: Warm, dry well perfused. Affect: Normal. <Shayna Cornejo MD - Last Filed: 01/15/25 17:25> Const: Vital Signs, click to edit/add: Vital Signs - 24 hr 01/12/25 20:29 01/13/25 00:30 Temperature 100.3 F H 99.2 F Pulse Rate [Pulse Oximeter] 76 Respiratory Rate 16 18 Blood Pressure [Ri ght Upper Arm] 161/70 H 139/60 Pulse Oximetry 98 96 Oxygen Delivery Me thod Room Air Room Air <Shayna Cornejo MD - Last Filed: 01/15/25 17:25> Vital Signs, click to edit/add: Vital Signs - 24 hr 01/12/25 20:29 01/13/25 00:30 Temperature 100.3 F H 99.2 F Pulse Rate [Pulse Oximeter] 76 Respiratory Rate 16 18 Blood Pressure [Ri ght Upper Arm] 161/70 H 139/60 Pulse Oximetry 98 96 Oxygen Delivery Me thod Room Air Room Air <Slick Mcgovern MD - Last Filed: 01/13/25 00:35> Course Course ED Course: I had a lengthy conversation with the patient and her about her symptoms and then I reviewed all of her records. Overall, it seems likely that this is related to ongoing problems with either her SI joint, original sacral insufficiency fracture or a new sacral insufficiency fracture. I think imaging of her pelvis/sacrum is warranted today, MRI is not available right now so I will do a CT scan. She had good luck with Toradol last time so will try that again. She does present with low-grade fever, temperature of 100.3?. She does not describe any fevers or chills or other infectious symptoms at home. Nonetheless, will do some basic blood work to include CRP, CBC, lactic acid and sed rate. Given the fever I did add on CT scan of the lumbar spine as well although I think the likelihood of this being a primary lumbar problem/radiculopathy seems lower. Patient was signed out to the oncoming physician to follow-up on imaging and labs, final disposition and plan per their addendum. <Shayna Cornejo MD - Last Filed: 01/15/25 17:25> Reevaluation(s) Reevaluation #1: Patient signed out to Dr. Mcgovern at shift change -2100 on 01/12. Pleasant 64-year-old female with no history of diabetes or immunosuppression has had trouble with right pelvic and SI joint pain since last July when she was diagnosed with sacral insufficiency fractures on CT. She has had a few flares of pain and was seen here in the ER about a month ago for flare pain. Sounds like her pain a month ago was treated with Toradol in the ER in improved and she was discharged home with a short course of prednisone. She has also been following with [facility]. She has had having another bad flare of pain tonight prompting her return visit. In addition to her exacerbation of pain, which has no triggering cause or a recent injury, she also has a low-grade fever today. Laboratory workup has normal white count of 10.8 but differential shows 72% neutrophils, 13% lymphocytes. CRP is elevated at 3.6. Sed rate is 37 . Venous lactic acid is normal. Screening blood sugars normal at 136. Patient has no history diabetes or known immunosuppression or chemotherapy. She was on some steroids last month when she had a flare of this pain but is not on chronic steroids. Last time she was on antibiotics was in June actually when this pain 1st started. She was treated for a urinary tract infection. I received a phone call from Radiology about her CT scan of her pelvis which is concerning for right SI joint osteomyelitis and reaction a affecting her right iliacus muscle. Cannot rule out possible iliac is phlegmon or abscess and radiology recommends further imaging with MRI with contrast. Subsequently CT pelvis- IMPRESSION: 1. Osteomyelitis of the right sacroiliac joint with sclerosis, erosion and diastasis. 2. Asymmetric thickening and inflammation of the right iliacus muscle. Evaluation for a phlegmon/abscess is limited due to the lack of intravenous contrast. 3. Colonic diverticulosis without diverticulitis. CT lumbar spine IMPRESSION: 1. Findings suspicious for osteomyelitis of the right sacroiliac joint, as seen on the same-day CT of the pelvis. Evaluation for phlegmon or developing abscess is limited without the use of intravenous contrast. 2. Diffuse osteopenia limits evaluation for subtle nondisplaced fractures. 3. No acute fracture or traumatic subluxation of the lumbar spine. 4. Multilevel lumbar spondylosis. Discussed the situation with the patient her . They agree with the plan for transfer to a higher level of care where there is advanced orthopedic surgical capabilities, Infectious Disease, and availability of MRI on the weekend. He request [facility] because her is getting care there is well. We did contact the ER at [facility]. Patient was accepted for transfer by Dr. Richards. Although the patient is hemodynamically stable and nonseptic, He recommends that we start antibiotics now rather than with hold them. He does not think there would be a significant detriment in culture results. Will start vancomycin. Also meropenem. Patient has penicillin allergy so cannot receive Zosyn. She will be transferred to [facility] by EMS. <Slick Mcgovern MD - Last Filed: 01/13/25 00:35> Vital Signs Vital signs: Initial Vital Signs Temperature 100.3 F H 01/12/25 20:29 Temperature Source Temporal Artery Scan 01/12/25 20:29 Respiratory Rate 16 01/12/25 20:29 Blood Pressure 161/70 H 01/12/25 20:29 Blood Pressure Mean 100 01/12/25 20:29 Blood Pressure Position Sitting 01/12/25 20:29 Pulse Oximetry 98 01/12/25 20:29 Oxygen Delivery Method Room Air 01/12/25 20:29 Vital Signs Temperature 100.3 F H 01/12/25 20:29 Respiratory Rate 16 01/12/25 20:29 Blood Pressure 161/70 H 01/12/25 20:29 Pulse Oximetry 98 01/12/25 20:29 Oxygen Delivery Method Room Air 01/12/25 20:29 Temperature 99.2 F 01/13/25 00:30 Pulse Rate 76 01/13/25 00:30 Respiratory Rate 18 01/13/25 00:30 Blood Pressure 139/60 01/13/25 00:30 Pulse Oximetry 96 01/13/25 00:30 Oxygen Delivery Method Room Air 01/13/25 00:30 <Shayna Cornejo MD - Last Filed: 01/15/25 17:25> Initial Vital Signs Temperature 100.3 F H 01/12/25 20:29 Temperature Source Temporal Artery Scan 01/12/25 20:29 Respiratory Rate 16 01/12/25 20:29 Blood Pressure 161/70 H 01/12/25 20:29 Blood Pressure Mean 100 01/12/25 20:29 Blood Pressure Position Sitting 01/12/25 20:29 Pulse Oximetry 98 01/12/25 20:29 Oxygen Delivery Method Room Air 01/12/25 20:29 Vital Signs Temperature 100.3 F H 01/12/25 20:29 Respiratory Rate 16 01/12/25 20:29 Blood Pressure 161/70 H 01/12/25 20:29 Pulse Oximetry 98 01/12/25 20:29 Oxygen Delivery Method Room Air 01/12/25 20:29 Temperature 99.2 F 01/13/25 00:30 Pulse Rate 76 01/13/25 00:30 Respiratory Rate 18 01/13/25 00:30 Blood Pressure 139/60 01/13/25 00:30 Pulse Oximetry 96 01/13/25 00:30 Oxygen Delivery Method Room Air 01/13/25 00:30 <Slick Mcgovern MD - Last Filed: 01/13/25 00:35> Medications Administered Medications: Discontinued Medications Generic Name Dose Route Start Last Admin Trade Name Freq PRN Reason Stop Dose Admin Vancomycin/PEG/NADA/Lysine/Water 2 gm in 400 mls @ 200 mls/hr 01/12/25 23:30 01/13/25 01:52 Vancomycin 2 Gm/400 Ml IVPB 01/13/25 01:29 Infused ONCE ONE Infusion Protocol Meropenem 1 gm/ Sodium 100 mls @ 200 mls/hr 01/12/25 23:04 01/13/25 00:12 Chloride IVPB 01/12/25 23:33 Infused ONCE ONE Infusion Ketorolac Tromethamine 15 mg 01/12/25 20:42 01/12/25 21:37 Ketorolac 15 Mg/Ml Inj IVP 01/12/25 20:43 Not Given ONCE ONE Ketorolac Tromethamine 30 mg 01/12/25 21:07 01/12/25 21:35 Ketorolac 30 Mg/Ml Inj IM 01/12/25 21:08 30 mg ONCE ONE Administration Morphine Sulfate 4 mg 01/12/25 22:33 01/12/25 23:05 Morphine 4 Mg/Ml Inj IVP 01/12/25 22:34 4 mg ONCE ONE Administration Morphine Sulfate 4 mg 01/13/25 01:39 01/13/25 01:52 Morphine 4 Mg/Ml Inj IVP 01/13/25 01:40 4 mg ONCE ONE Administration Prednisone 60 mg 01/12/25 20:42 01/12/25 21:35 Prednisone 20 Mg Tablet PO 01/12/25 20:43 60 mg ONCE ONE Administration <Shayna Cornejo MD - Last Filed: 01/15/25 17:25> Discontinued Medications Generic Name Dose Route Start Last Admin Trade Name Sebastián PRN Reason Stop Dose Admin Vancomycin/PEG/NADA/Lysine/Water 2 gm in 400 mls @ 200 mls/hr 01/12/25 23:30 01/13/25 01:52 Vancomycin 2 Gm/400 Ml IVPB 01/13/25 01:29 Infused ONCE ONE Infusion Protocol Meropenem 1 gm/ Sodium 100 mls @ 200 mls/hr 01/12/25 23:04 01/13/25 00:12 Chloride IVPB 01/12/25 23:33 Infused ONCE ONE Infusion Ketorolac Tromethamine 15 mg 01/12/25 20:42 01/12/25 21:37 Ketorolac 15 Mg/Ml Inj IVP 01/12/25 20:43 Not Given ONCE ONE Ketorolac Tromethamine 30 mg 01/12/25 21:07 01/12/25 21:35 Ketorolac 30 Mg/Ml Inj IM 01/12/25 21:08 30 mg ONCE ONE Administration Morphine Sulfate 4 mg 01/12/25 22:33 01/12/25 23:05 Morphine 4 Mg/Ml Inj IVP 01/12/25 22:34 4 mg ONCE ONE Administration Morphine Sulfate 4 mg 01/13/25 01:39 01/13/25 01:52 Morphine 4 Mg/Ml Inj IVP 01/13/25 01:40 4 mg ONCE ONE Administration Prednisone 60 mg 01/12/25 20:42 01/12/25 21:35 Prednisone 20 Mg Tablet PO 01/12/25 20:43 60 mg ONCE ONE Administration <Slick Mcgovern MD - Last Filed: 01/13/25 00:35> Medical Decision Making Lab Data Labs: Lab Results 01/12/25 01/12/25 Range/Units 22:02 22:47 WBC 10.83 (4.50-11.00) K/uL RBC 4.63 (4.00-5.20) m/uL Hgb 13.1 (12.0-16.0) gm/dL Hct 41.4 (33.0-51.0) % MCV 89 (80-100) fL MCH 28 (26-34) pg MCHC 32 (32-36) gm/dL RDW Coeff of Alee 14.4 (11.5-15.5) % Plt Count 352 (140-440) K/uL Neut % (Auto) 72.2 H (42.0-72.0) % Lymph % (Auto) 13.1 L (20-44) % Riley % (Auto) 9.5 (0.0-11.0) % Eos % (Auto) 3.9 (0.0-7.0) % Baso % (Auto) 0.1 (0.0-3.0) % Neut # (Auto) 7.80 H (1.7-7.0) K/uL Lymph # (Auto) 1.40 (0.90-2.90) K/uL Riley # (Auto) 1.00 H (0.00-0.90) K/UL Eos # (Auto) 0.42 (0.00-0.50) K/uL Baso # (Auto) 0.01 (0.00-0.30) K/uL Abs Immat Gran (auto) 0.13 (0.00-0.30) K/uL Imm/Tot Granulo (auto) 1.2 % ESR 37 H (2-20) mm/hr Lactate 1.5 (0.5-1.9) mmol/L C-Reactive Protein 3.6 H (0.5-1.0) mg/dL POC Glucose 136 H (60-115) mg/dl <Shayna H Block, MD - Last Filed: 01/15/25 17:25> Lab Results 01/12/25 01/12/25 Range/Units 22:02 22:47 WBC 10.83 (4.50-11.00) K/uL RBC 4.63 (4.00-5.20) m/uL Hgb 13.1 (12.0-16.0) gm/dL Hct 41.4 (33.0-51.0) % MCV 89 (80-100) fL MCH 28 (26-34) pg MCHC 32 (32-36) gm/dL RDW Coeff of Alee 14.4 (11.5-15.5) % Plt Count 352 (140-440) K/uL Neut % (Auto) 72.2 H (42.0-72.0) % Lymph % (Auto) 13.1 L (20-44) % Riley % (Auto) 9.5 (0.0-11.0) % Eos % (Auto) 3.9 (0.0-7.0) % Baso % (Auto) 0.1 (0.0-3.0) % Neut # (Auto) 7.80 H (1.7-7.0) K/uL Lymph # (Auto) 1.40 (0.90-2.90) K/uL Riley # (Auto) 1.00 H (0.00-0.90) K/UL Eos # (Auto) 0.42 (0.00-0.50) K/uL Baso # (Auto) 0.01 (0.00-0.30) K/uL Abs Immat Gran (auto) 0.13 (0.00-0.30) K/uL Imm/Tot Granulo (auto) 1.2 % ESR 37 H (2-20) mm/hr Lactate 1.5 (0.5-1.9) mmol/L C-Reactive Protein 3.6 H (0.5-1.0) mg/dL POC Glucose 136 H (60-115) mg/dl <Slick Mcgovern MD - Last Filed: 01/13/25 00:35> Discharge Plan Discharge Clinical Impression: Osteomyelitis, SI (sacroiliac) joint inflammation <Shayna Cornejo MD - Last Filed: 01/15/25 17:25> Prescriptions: No Action aspirin 81 mg tablet,delayed release (DR/EC) 81 mg PO QDAY fluconazole 150 mg tablet 150 mg PO Q3D Qty: 2 0RF acetaminophen 325 mg tablet 650 mg PO Q4H PRN Rx Instructions: NO MORE THAN 4000 MG/DAY coenzyme Q10 [Co Q-10] 30 mg capsule 30 mg PO QDAY multivitamin Tablet 1 tab PO QAM buspirone 5 mg tablet 5 mg PO BID Qty: 90 3RF clobetasol 0.05 % solution topical BID clobetasol 0.05 % ointment topical .ud hydrocortisone 2.5 % ointment topical .ud Patient Comments: APPLY ON EARS TWO TIMES A DAY FOR UP TO 2 WEEKS AT A TIME. THEN TAKE 2 WEEKS OFF. REPEAT NEEDED FOR FLARES. ketoconazole 2 % shampoo topical DAILY clobetasol 0.05 % cream 1 applic topical QDAY Vitron-C 65 mg iron- 125 mg tablet,delayed release (DR/EC) 1 tab PO QDAY cholecalciferol (vitamin D3) 1,250 mcg (50,000 unit) capsule 1,250 mcg PO DAILY ciprofloxacin HCl 500 mg tablet 500 mg PO BID 5 Days Qty: 10 0RF methylprednisolone [Medrol (Trevor)] 4 mg tablets,dose pack See Rx Instructions .ROUTE .COMPLEX Qty: 21 0RF Rx Instructions: orally per package directions albuterol sulfate 2.5 mg /3 mL (0.083 %) solution for nebulization 2.5 mg inhalation Q4H PRN (Reason: shortness of breath or wheezing) Qty: 90 0RF clindamycin HCl 300 mg capsule 300 mg PO TID Qty: 21 0RF lisinopril 20 mg tablet 20 mg PO DAILY Qty: 90 0RF fluoxetine 40 mg capsule 40 mg PO QAM Qty: 90 0RF bupropion HCl [Wellbutrin XL] 300 mg tablet extended release 24 hr 300 mg PO QAM Qty: 90 0RF rosuvastatin 10 mg tablet 10 mg PO QHS Qty: 90 0RF omeprazole 40 mg capsule,delayed release(DR/EC) 40 mg PO DAILY Qty: 90 0RF albuterol sulfate 90 mcg/actuation HFA aerosol inhaler 2 inh inhalation Q4-6H PRN (Reason: bronchospasm) Qty: 8.5 2RF <Shayna Cornejo MD - Last Filed: 01/15/25 17:25> Follow Up/Referrals: Shayna Feliciano MD [Primary Care Provider, [facility]] <Shayna Cornejo MD - Last Filed: 01/15/25 17:25>
--- NOTE | 2025-01-12 21:38 | CRLHL7_ITS ---
For Patients: As a result of the Century Cures Act, medical imaging exams and procedure reports are released immediately into your electronic medical record. You may view this report before your referring provider. If you have questions, please contact your health care provider. INDICATION: Right hip and back pain. Evaluate for sacral insufficiency fracture. Fever. TECHNIQUE: Multiplanar CT examination of the lumbar spine was performed without the use of intravenous contrast. COMPARISON: CT lumbar spine 07/03/2024. FINDINGS: Widening of the right sacroiliac joint with associated osseous erosions and asymmetric enlargement and edema of the right iliacus muscle, as seen on the concurrently performed CT of the pelvis. Evaluation for abscess is limited without the use of intravenous contrast. Normal lumbar lordosis. Diffuse osteopenia limits evaluation for subtle nondisplaced fractures. No acute fractures or traumatic subluxation. Mild chronic appearing compression deformities of the vertebral bodies of T11 and T12. Sclerotic focus, likely bone island within the vertebral body of T11. Severe degenerative disc disease involving L3-4, L4-5 and L5-S1. Small posterior disc osteophyte complexes without high-grade canal stenosis. Mild multilevel facet degeneration with moderate neural foraminal stenosis of the right L4-5 and bilateral L5-S1 neural foramina. No large abnormal epidural collections identified. IMPRESSION: 1. Findings suspicious for osteomyelitis of the right sacroiliac joint, as seen on the same-day CT of the pelvis. Evaluation for phlegmon or developing abscess is limited without the use of intravenous contrast. 2. Diffuse osteopenia limits evaluation for subtle nondisplaced fractures. 3. No acute fracture or traumatic subluxation of the lumbar spine. 4. Multilevel lumbar spondylosis. Please note that all CT scans at this facility use dose modulation, iterative reconstruction, and/or weight-based dosing when appropriate to reduce radiation dose to as low as reasonably achievable. Dictated by Boston Sher MD @ 01/12/2025 10:52:43 PM (Electronically Signed)
[2025-01-12 22:06] LABS: Lactate Sepsis w/Reflex* 1.5 mmol/L (0.5-1.9)
[2025-01-12 22:11] LABS: Hematocrit 41.4 % (33.0-51.0); Hemoglobin* 13.1 gm/dL (12.0-16.0); Immature Granulocytes Abs Auto 0.13 K/uL (0.00-0.30); Immature Granulocytes Pct Auto 1.2 %; Mean Corpuscular HGB Conc 32 gm/dL (32-36); Mean Corpuscular Hemoglobin 28 pg (26-34); Mean Corpuscular Volume 89 fL (80-100); RDW Coefficient of Variation % 14.4 % (11.5-15.5); Red Blood Count 4.63 m/uL (4.00-5.20); White Blood Count* 10.83 K/uL (4.50-11.00)
[2025-01-12 22:13] LABS: Lymphocytes Absolute Auto 1.40 K/uL (0.90-2.90); Slide Review Reflex No
[2025-01-12 23:03] LABS: Glucose, Point-of-Care* 136 mg/dl (60-115)
[2025-01-12] MEDS: MORPHINE 4 MG/ML INJ IVP (23:05)
[2025-01-12 23:21] LABS: Erythrocyte SedimentationRate* 37 mm/hr (2-20)
[2025-01-12] MEDS: MEROPENEM 1 GM in 0.9 % SODIUM CHLORIDE Mini-bag 100 ML IVPB (23:37)
[2025-01-13] MEDS: VANCOMYCIN 2 GM/400 ML 2 GM/400 ML PIGGYBACK IVPB (00:13)
[2025-01-13 00:30] VITALS: BP 139/60; PULSE 76; RESP 18; TEMP 37.3; O2SAT 96
--- NOTE | 2025-01-13 00:33 | ED.NURSE ---
Pt transfer paperwork is ready, ETA on rig is 90 minutes out. Report has been called to [facility]. Awaiting ambulance for discharge to [facility]
[2025-01-13] MEDS: MORPHINE 4 MG/ML INJ IVP (01:52)
== END 2025-01-13 02:46 | disposition home or self-care (01) ==
PROVIDERS: Emergency Medicine; Emergency Provider Emergency Medicine; PCP Family Medicine
DX: M53.3 Sacrococcygeal disorders, not elsewhere classified (principal); M86.9 Osteomyelitis, unspecified
CPT/HCPCS: 36415; 72131; 72192; 81001; 82947; 83605; 85025; 85651; 86140; 87040; 96365; 96366; 96372; 96375; 99284; J1885; J2185; J2270; J3375; J7512

== ENCOUNTER 2025-01-13 02:10 | Outpatient (CLI) | payer BC, SELFPAY | END 2025-01-13 02:11 | disposition home or self-care (01) | LOC: AMB 01-15 14:50 | PROVIDERS: PCP Family Medicine; Visit Provider Student in an Organized Health Care Education/Training Program | DX: M86.9 Osteomyelitis, unspecified (principal); M54.30 Sciatica, unspecified side | CPT/HCPCS: A0425; A0429 ==

== ENCOUNTER 2025-01-23 10:03 | Outpatient (CLI) | payer BC, SELFPAY | END 2025-01-23 10:04 | disposition home or self-care (01) | LOC: FRMREF 10:06 | PROVIDERS: PCP Family Medicine; Visit Provider Family Medicine | DX: K68.12 Psoas muscle abscess (principal); M86.9 Osteomyelitis, unspecified | CPT/HCPCS: 86140 ==

== ENCOUNTER 2025-02-08 12:27 | Outpatient (CLI) | payer BC, SELFPAY ==
[2025-02-08 12:57] LABS: Creatinine* 0.9 mg/dL (0.5-1.5); Estimated Glomerular Filt Rate 72 ml/min
--- NOTE | 2025-02-08 13:00 | CRLHL7_ITS ---
For Patients: As a result of the Century Cures Act, medical imaging exams and procedure reports are released immediately into your electronic medical record. You may view this report before your referring provider. If you have questions, please contact your health care provider. INDICATION: Blood in vaginal vault TECHNIQUE: Axial images were obtained from the diaphragm to the pubic symphysis. Reformats were obtained in the coronal and sagittal plane. IV Contrast: 119 cc Isovue 370 Oral Contrast: None COMPARISON: Pelvis CT 01/15/2025 and abdomen and pelvis CT 06/20/2019 FINDINGS: Lower chest: Basilar discoid atelectasis with prominent bulla in the right lower lobe. Liver: Unremarkable. Normal in size and attenuation. No masses. Gallbladder and bile ducts: Status post cholecystectomy. Spleen: Unremarkable. Normal in size without mass. Pancreas: Unremarkable. No mass or inflammation. Adrenal glands: Unremarkable. No nodules. Kidneys: Unremarkable. No masses, stones, or hydronephrosis. Vasculature: Atherosclerosis without abdominal aortic aneurysm. GI tract: The stomach is decompressed. No dilated loops of large or small intestine. Suture line at the cecal tip suggesting prior appendectomy. Colonic diverticulosis with prior distal sigmoid surgery. Pelvis: Status post hysterectomy. No definite abnormality at the level of the vaginal cuff. Bladder mildly distended and grossly unremarkable. Bones: Erosive changes at the level of the right sacroiliac joint with mild expansion of the right piriformis and iliopsoas musculature. 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 Focal sclerosis within the T11 vertebral body measuring 11 millimeters. This is stable dating back to the 2019 examination consistent with a benign etiology. IMPRESSION: 1. No CT findings to explain the patient`s vaginal bleeding. 2. Destructive changes at the right sacroiliac joint with adjacent sclerosis, erosions and expansion of the right piriformis and iliopsoas musculature consistent with septic arthritis, osteomyelitis and myositis. Compared to the CT scan of 1 month prior, inflammation surrounding the right sacroiliac joint is mildly reduced. 3. Colonic diverticulosis status post distal sigmoid surgery. Please note that all CT scans at this facility use dose modulation, iterative reconstruction, and/or weight-based dosing when appropriate to reduce radiation dose to as low as reasonably achievable. Dictated by Bacilio Odom MD @ 02/09/2025 2:38:45 PM (Electronically Signed)
== END 2025-02-08 12:28 | disposition home or self-care (01) ==
LOC: CT 12:27
PROVIDERS: PCP Family Medicine; Visit Provider Family Medicine
DX: N89.8 Other specified noninflammatory disorders of vagina (principal); K57.90 Diverticulosis of intestine, part unspecified, without perforation or abscess without bleeding; K68.12 Psoas muscle abscess; N82.3 Fistula of vagina to large intestine
CPT/HCPCS: 36415; 74177; 82565; Q9967

== ENCOUNTER 2025-02-09 13:11 | Emergency (ER) | payer BC, SELFPAY ==
--- OUTSIDE RECORDS SUMMARY | 2025-02-09 13:13 | XMS_ITS | Clinical Summary ---
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
--- OUTSIDE RECORDS SUMMARY | 2025-02-09 13:13 | XMS_ITS | Clinical Summary ---
Author Organization [facility] Address [address] [place] [address]. 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 Gender Identity Not on file Sexual Orientation Not on file Last Filed Vital Signs Vital Sign Reading Time Taken Comments Blood Pressure 146/80 02/03/2024 1:19 PM CDT Pulse 70 02/03/2024 1:19 PM CDT Temperature 36.9 C (98.5 F) 09/27/2004 10:00 AM COLD WORKING INSPECTOR Respiratory Rate - - Oxygen Saturation - [...] DIABETIC FOOT EXAM 10/18/2024 10/19/2023 INFLUENZA VACCINE (#1) 2025 , 04/27/2022, 08/07/2020, Additional history exists HPV VACCINE (No Doses Required) Completed MENINGITIS VACCINE Aged Out No longer eligible [...] BOTH BREASTS (DIAG) Routine 09/30/2004 10:48 AM COLD WORKING INSPECTOR Pain in limb from Last 3 Months [...] [facility] - BLOOD ORDERABLES Final Result MISYS * (ABNORMAL) A.M.A. LIPID PANEL (10/20/2004 11:00 AM CDT) Cholesterol 235(H) 0 - 200 mg/dL [facility] [place] Comment: Cholesterol Reference Range: <200 The NCEP recommends further evaluation of: 1. Patients with cholesterol greater than 200 mg/dL if additional risk factors are present. 2. All patients with a cholesterol greater than 240 mg/dL. Triglycerides 126 0 - 150 mg/dL [facility] [place] HDL Cholesterol 43 >40 mg/dL [facility] LDL Cholesterol Calculated 167(H) 0 - 129 mg/dL [facility] [place] VLDL-Cholesterol 25 0 - 30 mg/dL [facility] [place] Cholesterol/HDL Ratio 5.5(H) 0.0 - 5.0 [facility] [place] 10/20/2004 11:0 0 AM CDT 10/20/2004 11:03 AM CDT us Jesi Herring MD LABORATORY Final Result [address] [address] * A THIN LAYER PAP SCREEN (10/20/2004 12:00 AM CDT) PAP NIL POLLO Hall Report Patient Name: NIURKA JEFFERSON MR#: [id number] Specimen #: [id number] Collected: 10/20/2004 Received: 10/21/2004 Reported: 10/22/2004 14:35 Ordering Phy(s): JESI HERRING SPECIMEN/STAIN PROCESS: Pap thin layer prep screening Pap-Cyto x 1, Reflex HPV x 1 SOURCE: Cervical, endocervical Pap thin layer prep screening SPECIMEN ADEQUACY: Satisfactory for evaluation. -Transitional zone component present. CYTOLOGIC INTERPRETATION: Negative for Intraepithelial Lesion or Malignancy Electronically signed out by: DASHA Gonzalez (ASCP) Processed and screened at [facility] CLINICAL HISTORY: LMP: 10-03-04 Previous normal pap Date of Last Pap: 2001, TESTING LAB LOCATION: [address] [address] COLLECTION SITE: Client: [facility] Location: [facility] 10/20/2004 10/21/2004 10: 22 AM CDT us Jesi Herring MD LABORATORY Final Result COPATH * MAMMOGRAM, BOTH BREASTS (DIAG) (09/30/2004 10:48 AM COLD WORKING INSPECTOR) Anatomical Region Laterality Modality Other 09/30/2004 10:4 8 AM COLD WORKING INSPECTOR Impressions 10/01/2004 3:22 PM COLD WORKING INSPECTOR DIAGNOSTIC MAMMOGRAM, BILATERAL AND BREAST ULTRASOUND, RIGHT [...] Most Recently Relevant to Health Maintenance Insurance [facility] BLUE PLUS [facility] [employer]US [place] [place] Care Teams Production Cell Leader Relationship Specialty Start Date End Date Shayna Feliciano MD [facility] [address] [place], [place] [id number] PCP - General Family Medicine 10/19/23 [place] Man[place]PM [id number] [address] Assigned Musculoskeletal Provider 11/02/23
[2025-02-09 13:17] VITALS: BP 157/76; PULSE 67; RESP 18; TEMP 37.6; O2SAT 97; BMI 38.1
--- NOTE | 2025-02-09 13:35 | ED.GENADULT ---
HPI - General Adult General Chief complaint: Abdominal Pain Stated complaint: Lower L abdominal pain Time Seen by Provider: 02/09/25 13:35 History of Present Illness HPI narrative: patient came in yesterday for a CT of the abdomen as today has increased pain on the LLQ. feeling a little nauseated. is being treated for strep infection and SI joint being eaten by the Strep infection . 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 taking Doxycycline for the infection on the right side. 64-year-old woman presenting to the emergency department Related Data Home Medications ?Medication ?Instructions ?Recorded ?Confirmed coenzyme Q10 30 mg capsule (Co 30 mg PO QDAY 01/29/22 02/09/25 Q-10) multivitamin 1 tab PO QAM 01/29/22 02/09/25 aspirin 81 mg tablet,delayed 81 mg PO QDAY 05/11/23 02/09/25 release clobetasol 0.05 % scalp solution 1 applic topical BID 04/13/24 02/09/25 clobetasol 0.05 % topical ointment topical .ud 04/13/24 01/26/25 hydrocortisone 2.5 % topical topical .ud 04/13/24 01/26/25 ointment ketoconazole 2 % shampoo topical DAILY 04/13/24 01/26/25 cholecalciferol (vitamin D3) 1,250 1,250 mcg PO DAILY 05/19/24 02/09/25 mcg (50,000 unit) capsule clobetasol 0.05 % topical cream 1 applic topical QDAY 05/19/24 02/09/25 iron,carbonyl 65 mg-vitamin C 125 1 tab PO QDAY 05/19/24 01/26/25 mg tablet,delayed release (Vitron-C) doxycycline hyclate 100 mg capsule 100 mg PO BID 01/23/25 02/09/25 Previous Rx's ?Medication ?Instructions ?Recorded buspirone 5 mg tablet 5 mg PO BID #90 tabs 10/04/23 albuterol sulfate 2.5 mg/3 mL 2.5 mg (3 mL) inhalation Q4H PRN 06/23/24 (0.083 %) solution for nebulization shortness of breath or wheezing #90 mL fluconazole 150 mg tablet 150 mg PO Q3D 2 doses #2 tabs 10/16/24 bupropion HCl 300 mg 24 hr tablet, 300 mg PO QAM #90 tabs 11/13/24 extended release (Wellbutrin XL) fluoxetine 40 mg capsule 40 mg PO QAM #90 caps 11/13/24 omeprazole 40 mg capsule,delayed 40 mg PO DAILY #90 caps 12/13/24 release fluconazole 150 mg tablet 150 mg PO Q3D 2 doses #2 tabs 01/23/25 fluconazole 150 mg tablet 150 mg PO Q3D 2 doses #2 tabs 01/26/25 lisinopril 20 mg tablet 20 mg PO DAILY #90 tabs 01/31/25 rosuvastatin 10 mg tablet 10 mg PO QHS #90 tabs 01/31/25 albuterol sulfate 90 mcg/actuation 2 inh inhalation Q4-6H PRN 02/01/25 aerosol inhaler bronchospasm #8.5 grams Allergies Allergy/AdvReac Type Severity Reaction Status Date / Time azithromycin Allergy Intermediate Light Verified 02/09/25 13:26 Headed hydromorphone Allergy Intermediate Itchy Verified 02/09/25 13:26 lactose Allergy Intermediate Diarrhea Verified 02/09/25 13:26 zolpidem Allergy Intermediate Fatigue & Verified 02/09/25 13:26 Vertigo Cephalosporins Allergy Mild Nausea/Vomi Verified 02/09/25 13:26 ting codeine Allergy Mild N-V Verified 02/09/25 13:26 nitrofurantoin Allergy Unknown itchy? Verified 02/09/25 13:26 atorvastatin AdvReac Mild myalgia Verified 02/09/25 13:26 PFSH [facility] Medical History CLAUDIA (obstructive sleep apnea) ?G47.33 - Obstructive sleep apnea (adult) (pediatric) (ICD-10) COPD (chronic obstructive pulmonary disease) ?J44.9 - Chronic obstructive pulmonary disease, unspecified (ICD-10) Anxiety ?F41.9 - Anxiety disorder, unspecified (ICD-10) Hypertension ?I10 - Essential (primary) hypertension (ICD-10) Osteoarthritis ?M19.90 - Unspecified osteoarthritis, unspecified site (ICD-10) GERD (gastroesophageal reflux disease) ?K21.9 - Gastro-esophageal reflux disease without esophagitis (ICD-10) History of open sigmoidectomy (08/23/12) ?Z98.890 - Other specified postprocedural states (ICD-10) ?Z90.49 - Acquired absence of other specified parts of digestive tract (ICD-10) 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 (ICD-10) Mild intermittent asthma (07/24/11) ?J45.20 - Mild intermittent asthma, uncomplicated (ICD-10) Surgical History H/O laparoscopy (03/10/12) ?Z98.890 - Other specified postprocedural states (ICD-10) Status post tonsillectomy ?Z90.89 - Acquired absence of other organs (ICD-10) Status post appendectomy (~02/2012) ?Z90.49 - Acquired absence of other specified parts of digestive tract (ICD-10) History of laparoscopic cholecystectomy (03/10/12) ?Z90.49 - Acquired absence of other specified parts of digestive tract (ICD-10) History of hysterectomy (05/20/06) ?Z90.710 - Acquired absence of both cervix and uterus (ICD-10) History of carpal tunnel surgery (~1989) ?Z98.890 - Other specified postprocedural states (ICD-10) Family History Brother Aneurysm Lung cancer Maternal Grandmother Colorectal cancer Father CHF (congestive heart failure) Coronary artery disease Diabetes Mother Coronary artery disease Stroke Depression Diabetes High blood pressure Rheumatic fever Social History Narrative: Does not drink alcohol Does not use illicit drugs Smoker- 0.5 packs per day Smoking Status: Former smoker Do you use any of these nicotine containing products: None Second hand tobacco smoke exposure: Yes How often do you have a drink containing alcohol: monthly or less AUDIT-C Alcohol total score: 1 Non-prescribed substance use: denies use Exam Const: Vital Signs, click to edit/add: Vital Signs - 24 hr 02/09/25 13:17 Temperature 99.6 F Pulse Rate [Pulse Oximeter] 67 Respiratory Rate 18 Blood Pressure [Ri ght Upper Arm] 157/76 H Pulse Oximetry 97 Oxygen Delivery Me thod Room Air Course Vital Signs Vital signs: Initial Vital Signs Temperature 99.6 F 02/09/25 13:17 Temperature Source Temporal Artery Scan 02/09/25 13:17 Pulse Rate 67 02/09/25 13:17 Respiratory Rate 18 02/09/25 13:17 Blood Pressure 157/76 H 02/09/25 13:17 Blood Pressure Mean 103 02/09/25 13:17 Blood Pressure Position Sitting 02/09/25 13:17 Pulse Oximetry 97 02/09/25 13:17 Oxygen Delivery Method Room Air 02/09/25 13:17 Vital Signs Temperature 99.6 F 02/09/25 13:17 Pulse Rate 67 02/09/25 13:17 Respiratory Rate 18 02/09/25 13:17 Blood Pressure 157/76 H 02/09/25 13:17 Pulse Oximetry 97 02/09/25 13:17 Oxygen Delivery Method Room Air 02/09/25 13:17 Temperature 99.6 F 02/09/25 13:17 Pulse Rate 67 02/09/25 13:17 Respiratory Rate 18 02/09/25 13:17 Blood Pressure 157/76 H 02/09/25 13:17 Pulse Oximetry 97 02/09/25 13:17 Oxygen Delivery Method Room Air 02/09/25 13:17 Discharge Plan Discharge Prescriptions: No Action aspirin 81 mg tablet,delayed release (DR/EC) 81 mg PO QDAY fluconazole 150 mg tablet 150 mg PO Q3D Qty: 2 0RF coenzyme Q10 [Co Q-10] 30 mg capsule 30 mg PO QDAY multivitamin Tablet 1 tab PO QAM buspirone 5 mg tablet 5 mg PO BID Qty: 90 3RF clobetasol 0.05 % solution 1 applic topical BID Patient Comments: uses for 2 weeks and the done clobetasol 0.05 % ointment topical .ud hydrocortisone 2.5 % ointment topical .ud Patient Comments: APPLY ON EARS TWO TIMES A DAY FOR UP TO 2 WEEKS AT A TIME. THEN TAKE 2 WEEKS OFF. REPEAT NEEDED FOR FLARES. ketoconazole 2 % shampoo topical DAILY clobetasol 0.05 % cream 1 applic topical QDAY Vitron-C 65 mg iron- 125 mg tablet,delayed release (DR/EC) 1 tab PO QDAY cholecalciferol (vitamin D3) 1,250 mcg (50,000 unit) capsule 1,250 mcg PO DAILY doxycycline hyclate 100 mg capsule 100 mg PO BID fluconazole 150 mg tablet 150 mg PO Q3D Qty: 2 0RF albuterol sulfate 2.5 mg /3 mL (0.083 %) solution for nebulization 2.5 mg inhalation Q4H PRN (Reason: shortness of breath or wheezing) Qty: 90 0RF fluoxetine 40 mg capsule 40 mg PO QAM Qty: 90 0RF bupropion HCl [Wellbutrin XL] 300 mg tablet extended release 24 hr 300 mg PO QAM Qty: 90 0RF omeprazole 40 mg capsule,delayed release(DR/EC) 40 mg PO DAILY Qty: 90 0RF fluconazole 150 mg tablet 150 mg PO Q3D Qty: 2 0RF lisinopril 20 mg tablet 20 mg PO DAILY Qty: 90 0RF rosuvastatin 10 mg tablet 10 mg PO QHS Qty: 90 0RF albuterol sulfate 90 mcg/actuation HFA aerosol inhaler 2 inh inhalation Q4-6H PRN (Reason: bronchospasm) Qty: 8.5 0RF Follow Up/Referrals: Shayna Feliciano MD [Primary Care Provider, Family Practice]
--- NOTE | 2025-02-09 14:03 | ED_ITS ---
HPI - General Adult General Date Seen: 02/09/25 Chief complaint: Abdominal Pain Stated complaint: Lower L abdominal pain Time Seen by Provider: 02/09/25 13:35 History of Present Illness HPI narrative: 64 yo F with a history right SI joint infection and subsequent osteomyelitis and psoas abscess on the right side. I saw her here in the ER several weeks ago and she was transferred [facility]-see below. She is now on outpatient antibiotics with doxycycline to treat for MRSA infection. She has been following up with her PCP, Dr. Feliciano and had a CT scan yesterday. She presents the ER today because for the past couple of days she has had new pain in her left lower quadrant, left hip and into her pelvis. This is different than her previous right SI joint pain. She has not had any fever. No nausea vomiting. Bowel movements have been normal. Urination has been normal. She still has some mild vaginal discharge unchanged from her doctor's visit with Dr. Feliciano. The pain was getting worse today so she knew she had E come to the doctor. At [place] her infectious disease provider was Dr. Sky. Her most recent CBC from [place] showed a white count of 6, hemoglobin 11, platelet count of 277. Pleasant 64-year-old female with no history of diabetes or immunosuppression has had trouble with right pelvic and SI joint pain since last July when she was diagnosed with sacral insufficiency fractures on CT. She has had a few flares of pain and was seen here in the ER about a month ago for flare pain. Sounds like her pain a month ago was treated with Toradol in the ER in improved and she was discharged home with a short course of prednisone. She has also been following with [facility]. She has had having another bad flare of pain tonight prompting her return visit. In addition to her exacerbation of pain, which has no triggering cause or a recent injury, she also has a low-grade fever today. Laboratory workup has normal white count of 10.8 but differential shows 72% neutrophils, 13% lymphocytes. CRP is elevated at 3.6. Sed rate is 37 . Venous lactic acid is normal. Screening blood sugars normal at 136. Patient has no history diabetes or known immunosuppression or chemotherapy. She was on some steroids last month when she had a flare of this pain but is not on chronic steroids. Last time she was on antibiotics was in June actually when this pain 1st started. She was treated for a urinary tract infection. I received a phone call from Radiology about her CT scan of her pelvis which is concerning for right SI joint osteomyelitis and reaction a affecting her right iliacus muscle. Cannot rule out possible iliac is phlegmon or abscess and radiology recommends further imaging with MRI with contrast. Subsequently CT pelvis- IMPRESSION: 1. Osteomyelitis of the right sacroiliac joint with sclerosis, erosion and diastasis. 2. Asymmetric thickening and inflammation of the right iliacus muscle. Evaluation for a phlegmon/abscess is limited due to the lack of intravenous contrast. 3. Colonic diverticulosis without diverticulitis. CT lumbar spine IMPRESSION: 1. Findings suspicious for osteomyelitis of the right sacroiliac joint, as seen on the same-day CT of the pelvis. Evaluation for phlegmon or developing abscess is limited without the use of intravenous contrast. 2. Diffuse osteopenia limits evaluation for subtle nondisplaced fractures. 3. No acute fracture or traumatic subluxation of the lumbar spine. 4. Multilevel lumbar spondylosis. Discussed the situation with the patient her . They agree with the plan for transfer to a higher level of care where there is advanced orthopedic surgical capabilities, Infectious Disease, and availability of MRI on the weekend. He request [facility] because her is getting care there is well. We did contact the ER at [facility]. Patient was accepted for transfer by Dr. Richards. Although the patient is hemodynamically stable and nonseptic, He recommends that we start antibiotics now rather than with hold them. He does not think there would be a significant detriment in culture results. Will start vancomycin. Also meropenem. Patient has penicillin allergy so cannot receive Zosyn. She will be transferred to [facility] b Per patient report she was hospitalized at [facility] for about a week. Initially started on IV antibiotics (possibly vancomycin) but could not tolerate them due to neuropsych affects. She ultimately had some repeat CT scans and then a CT- guided aspiration of her abscess. She says her cultures grew MRSA. She was discharged home on oral doxycycline. Her right hip and back pain improved quite a bit while she was in the hospital. The overall plan was for to have 2 months of oral doxycycline plans to follow-up with Infectious Disease through [facility] in March with a repeat CT scan. Most recently Saw Dr Feliciano in clinic 01/26..Gabby Bah is a 64 yo F presenting to clinic for follow up. She is currently taking doxycycline and Macrobid after recent hospital admission for R hip osteomyelitis. Yesterday morning she developed bilateral inguinal pain that radiates inwards towards her vagina. The pain is deep in her pelvis, 7/10 in severity and worsened by movement. Her pain has been constant since onset but has noticeably improved with ibuprofen. Her pain is now 3/10 in clinic. She denies any other symptoms including abdominal pain, nausea, vomiting or diarrhea. No dysuria or difficulty urinating. No vaginal pain or discharge. No skin changes or rashes. Endorses worsening pain with arising from a seated position/walking Niurka is a 64 yo F with a recent hospitalization for chronic osteomyelitis and related psoas abscess presenting for 1 day of severe, bilateral groin pain that radiates deep into the vagina and is worsened by movement. 1. Red/brown vaginal discharge 2. Hx of recto-vaginal fistula repair 3. Yeast infection Obvious red/brown discharge on vaginal exam, concerning for recto-vaginal fistula. She has history of fistula repair many years ago and does not have a cervix/uterus, so no concern for endometrial cancer. Vaginal swab in clinic shows yeast, so will treat with fluconazole. Given recent history of psoas abscess and osteomyelitis, will obtain imaging of the abdomen and pelvis. Will likely refer for surgical consult depending on work up. - CT abdomen/pelvis with contrast (discussed with radiology) - Fluconazole script sent 4. Hx of osteomyelitis of R hip 5. Hx of psoas abscess Currently on doxycycline after recent admission. Unclear if fistula may have contributed to osteomyelitis or other way around. Given current abx use, will not treat for vaginal bacterial infection prophylaxis (KALEY just demonstrated yeast). - Continue doxycycline Patient had the CT scan yesterday 02/08/2025 but results not available. She notes that beginning a day or 2 ago she started having a new pain mostly in her left lower quadrant, left hip and radiating to her low groin and to the proximal medial/thighs bilaterally. No other symptoms with this. No fever or chills. No weakness. No numbness in her legs. Normal bowel and bladder function. She still has some mild vaginal discharge and has not yet heard about whether not she has a yeast infection. She continues on the oral doxycycline. Knowing that the pain was coming back, she knew she had to come back to the hospital. She contemplated going back to [facility] because of her complexity, but came here to the [facility] instead because it felt different than when she had her SI joint and psoas abscess. Related Data Home Medications ?Medication ?Instructions ?Recorded ?Confirmed coenzyme Q10 30 mg capsule (Co 30 mg PO QDAY 01/29/22 02/09/25 Q-10) multivitamin 1 tab PO QAM 01/29/22 aspirin 81 mg tablet,delayed 81 mg PO QDAY 05/11/23 release clobetasol 0.05 % scalp solution 1 applic topical BID 04/13/24 02/09/25 clobetasol 0.05 % topical ointment topical .ud 4 01/26/25 hydrocortisone 2.5 % topical topical .ud 04/13/2401/09 ointment ketoconazole 2 % shampoo topical DAILY 04/13/2401/26 cholecalciferol (vitamin D3) 1,250 1,250 mcg PO DAILY 05/19/24 02/09/25 mcg (50,000 unit) capsule clobetasol 0.05 % topical cream 1 applic topical QDAY 05/19/24 02/09/25 iron,carbonyl 65 mg-vitamin C 125 1 tab PO QDAY 01/26/25 mg tablet,delayed release (Vitron-C) doxycycline hyclate 100 mg capsule 100 mg PO BID 01/2302/09/25 Previous Rx's ?Medication ?Instructions ?Recorded buspirone 5 mg tablet 5 mg PO BID #90 tabs 10/03/2 4 albuterol sulfate 2.5 mg/3 mL 2.5 mg (3 mL) inhalation Q4H PRN 06/23/24 (0.083 %) solution for nebulization shortness of breat h or wheezing #90 mL fluconazole 150 mg tablet 150 mg PO Q3D 2 doses #2 tab s 10/16/24 bupropion HCl 300 mg 24 hr tablet, 300 mg PO QAM #90 t abs 11/13/24 extended release (Wellbutrin XL) fluoxetine 40 mg capsule 40 mg PO QAM #90 caps omeprazole 40 mg capsule,delayed 40 mg PO DAILY #90 ca ps 12/13/24 release fluconazole 150 mg tablet 150 mg PO Q3D 2 doses #2 tab s 01/23/25 fluconazole 150 mg tablet 150 mg PO Q3D 2 doses #2 tab s 01/26/25 lisinopril 20 mg tablet 20 mg PO DAILY #90 tabs 01/10 10/03 rosuvastatin 10 mg tablet 10 mg PO QHS #90 tabs albuterol sulfate 90 mcg/actuation 2 inh inhalation Q4 -6H PRN 02/01/25 aerosol inhaler bronchospasm #8.5 grams ciprofloxacin HCl 500 mg tablet 500 mg PO BID #10 tabs 02/09/25 (Cipro) oxycodone 5 mg capsule 5 mg PO Q6H PRN pain #10 cap s 02/09/25 oxycodone 5 mg tablet 5 mg PO Q6H PRN pain #10 tab s 02/09/25 Allergies Allergy/AdvReac Type Severity Reaction Status Date / Time azithromycin Allergy Intermediate Light Verified 02/09/25 13:26 Headed hydromorphone Allergy Intermediate Itchy Verified 02/09/25 13:26 lactose Allergy Intermediate Diarrhea Verified 02/09/25 13:26 zolpidem Allergy Intermediate Fatigue & Verified 02/09/25 13:26 Vertigo Cephalosporins Allergy Mild Nausea/Vomi Verified 02/09/25 13:26 ting codeine Allergy Mild N-V Verified 02/09/25 13:26 nitrofurantoin Allergy Unknown itchy? Verified 02/09/25 13:26 atorvastatin AdvReac Mild myalgia Verified 02/09/25 13:26 PFSH [facility] Medical History CLAUDIA (obstructive sleep apnea) ?G47.33 - Obstructive sleep apnea (adult) (pediatric) (ICD-10) COPD (chronic obstructive pulmonary disease) ?J44.9 - Chronic obstructive pulmonary disease, unspecified (ICD-10) Anxiety ?F41.9 - Anxiety disorder, unspecified (ICD-10) Hypertension ?I10 - Essential (primary) hypertension (ICD-10) Osteoarthritis ?M19.90 - Unspecified osteoarthritis, unspecified site (ICD-10) GERD (gastroesophageal reflux disease) ?K21.9 - Gastro-esophageal reflux disease without esophagitis (ICD-10) History of open sigmoidectomy (08/23/12) ?Z98.890 - Other specified postprocedural states (ICD-10) ?Z90.49 - Acquired absence of other specified parts of digestive tract (ICD- 10) 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 (ICD-10) Mild intermittent asthma (07/24/11) ?J45.20 - Mild intermittent asthma, uncomplicated (ICD-10) Surgical History H/O laparoscopy (03/10/12) ?Z98.890 - Other specified postprocedural states (ICD-10) Status post tonsillectomy ?Z90.89 - Acquired absence of other organs (ICD-10) Status post appendectomy (~02/2012) ?Z90.49 - Acquired absence of other specified parts of digestive tract (ICD- 10) History of laparoscopic cholecystectomy (03/10/12) ?Z90.49 - Acquired absence of other specified parts of digestive tract (ICD- 10) History of hysterectomy (05/20/06) ?Z90.710 - Acquired absence of both cervix and uterus (ICD-10) History of carpal tunnel surgery (~1989) ?Z98.890 - Other specified postprocedural states (ICD-10) Family History Brother Aneurysm Lung cancer Maternal Grandmother Colorectal cancer Father CHF (congestive heart failure) Coronary artery disease Diabetes Mother Coronary artery disease Stroke Depression Diabetes High blood pressure Rheumatic fever Social History Narrative: Does not drink alcohol Does not use illicit drugs Smoker- 0.5 packs per day Smoking Status: Former smoker Do you use any of these nicotine containing products: None Second hand tobacco smoke exposure: Yes How often do you have a drink containing alcohol: monthly or less AUDIT-C Alcohol total score: 1 Non-prescribed substance use: denies use Exam Narrative: Exam Narrative: Constitutional: Appears well-developed and well-nourished. Alert. Conversant. Non toxic. Polite HENT: Head: Atraumatic. Nose: Nose normal. Mouth/Throat: Oral mucosa is clear and moist. no trismus. Pharynx normal. Eyes: Conjunctivae normal. EOM normal. Pupils equal, round, and reactive to light. No scleral icterus. Neck: Normal range of motion. Neck supple. No tracheal deviation present. Cardiovascular: Normal rate, regular rhythm. No gallop. No friction rub. No murmur heard. Symmetric radial artery pulses Pulmonary/Chest: Effort normal. No stridor. No respiratory distress. No wheezes. No rales. No rhonchi . No tenderness. Abdominal: Soft. Bowel sounds normal. No distension. No mass. Left lower quadrant and suprapubic tenderness. No rebound. No guarding. Musculoskeletal: Normal inspection of her back. No midline tenderness over the T, L-spine. No posterior bony pelvis or SI joint tenderness. No redness or inflammation. Hips are normal. Pelvis is stable. She is able to stand but has pain in her left lower quadrant when she tries to walk. She is able to bear weight on each leg individually. RUE: Normal range of motion. No tenderness. No deformity LUE: Normal range of motion. No tenderness. No deformity RLE: Normal range of motion. No edema. No tenderness. No deformity LLE: Normal range of motion. No edema. No tenderness. No deformity Lymph: No cervical adenopathy. Neurological: Alert and oriented to person, place, and time. Normal strength. CN II-VII intact. No sensory deficit. GCS eye subscore is 4. GCS verbal subscore is 5. GCS motor subscore is 6. Normal coordination Sensory: Normal light touch sensation bilaterally on the anteromedial thigh (L3), medial malleolus (L4), dorsal first web space (L5), lateral malleolus (S1). Strength: 5/5 strength hip flexors (L3) on the rig ht and left 5/5 strength in the quadriceps (L4) on t he right and left 5/5 strength in the tibialis anterior 5/5 strength in the EHL (L5) on the righ t and left 5/5 strength in the gastrocnemius (S1) o n the right and left 5/5 strength in the hamstring on the rig ht and left Negative straight leg raise bilaterally. Skin: Skin is warm and dry. No rash noted. No pallor. Normal capillary refill. Psychiatric: Normal mood. Normal affect. Const: Vital Signs, click to edit/add: Vital Signs - 24 hr 02/09/25 13:17 02/09/25 17:04 Temperature 99.6 F Pulse Rate 72 Pulse Rate [Pulse Oximeter] 67 Respiratory Rate 18 14 Blood Pressure 150/85 H Blood Pressure [Ri ght Upper Arm] 157/76 H Pulse Oximetry 97 96 Oxygen Delivery Me thod Room Air Room Air Course Vital Signs Vital signs: Initial Vital Signs Temperature 99.6 F 02/09/25 13:17 Temperature Source Temporal Artery Scan 02/09/25 13:17 Pulse Rate 67 02/09/25 13:17 Respiratory Rate 18 02/09/25 13:17 Blood Pressure 157/76 H 02/09/25 13:17 Blood Pressure Mean 103 02/09/25 13:17 Blood Pressure Position Sitting 02/09/25 13:17 Pulse Oximetry 97 02/09/25 13:17 Oxygen Delivery Method Room Air 02/09/25 13:17 Vital Signs Temperature 99.6 F 02/09/25 13:17 Pulse Rate 67 02/09/25 13:17 Respiratory Rate 18 02/09/25 13:17 Blood Pressure 157/76 H 02/09/25 13:17 Pulse Oximetry 97 02/09/25 13:17 Oxygen Delivery Method Room Air 02/09/25 13:17 Temperature 99.6 F 02/09/25 13:17 Pulse Rate 72 02/09/25 17:04 Respiratory Rate 14 02/09/25 17:04 Blood Pressure 150/85 H 02/09/25 17:04 Pulse Oximetry 96 02/09/25 17:04 Oxygen Delivery Method Room Air 02/09/25 17:04 Medications Administered Medications: Discontinued Medications Generic Name Dose Route Start Last Admin Trade Name Freq PRN Reason Stop Dose Admin Sodium Chloride 1,000 mls @ 1,000 mls/hr 02/09/25 14:30 02/09/25 15:58 0.9 % Sodium Chloride 1000 Ml IV 02/09/25 15:29 Infused .Q1H LISSET Infusion Medical Decision Making MDM Narrative Medical decision making narrative: Very pleasant 64-year-old female with a complex recent medical history including a recent diagnosis of right SI joint septic arthritis with surrounding osteomyelitis, involvement the psoas muscle with psoas abscess. She had been hospitalized at [facility] a couple weeks ago for IV antibiotics and IR drainage of the psoas abscess. She now presents to the ER today with new onset of pain in her left lower quadrant, left pelvis. She has already been working this up with her PCP and had an outpatient CT done yesterday. The CT scan shows subtle improvement in her previous radiographic abnormalities affecting her right SI joint and psoas muscle. No findings to explain left lower quadrant pain on the CT.. Laboratory workup undertaken here in the ER today is largely reassuring with normal white count, CRP, sed rate. Discussed with Infectious Disease from [facility]. They were reassured by her stable vitals, lack of fever, normal labs. They do not feel that transfer to [facility] is necessary for repeat MRI of her pelvis or lumbar spine at this time. Although she does have some left lower quadrant and left hip pain, she is not having any back pain or any other symptoms suggest a lumbar radiculopathy or an evolving epidural spine abscess at this time. Urinalysis does show scant hematuria and pyuria. Unclear the significance of these findings. She is not really having dysuria, urgency, frequency that would clearly indicate the presence of an active UTI.. However I think it is reasonable to broaden her antibiotics and put her on Cipro to treat for possible UTI. She has allergies to nitrofurantoin, cephalosporins, Azithromycin. Discussed with the patient and her family her lab and imaging findings, in detail. At this point workup is reassuring. She would prefer to monitor carefully at home rather than be hospitalized (but is willing to be hospitalized if necessary). Discussed that we will start on antibiotics for possible UTI but this is not a definitive explanation for her left lower quadrant pain. She will return to the ER or go back to [place] if she has any worsening symptoms. Precautions for return to the ER reviewed. Questions answered to the best my ability. She has been using her previously prescribed oxycodone sparingly but only has a few tablets left. I agree to give her a refill for oxycodone. At this point low suspicion for abuse or neglect. Opiate precautions reviewed. Lab Data Labs: Lab Results 02/09/25 02/09/25 Range/Units 14:26 14:45 WBC 5.18 (4.50-11.00) K/uL RBC 4.36 (4.00-5.20) m/uL Hgb 12.5 (12.0-16.0) gm/dL Hct 39.5 (33.0-51.0) % MCV 91 (80-100) fL MCH 29 (26-34) pg MCHC 32 (32-36) gm/dL RDW Coeff of [place]lee 14.7 (11.5-15.5) % Plt Count 300 (140-440) K/uL Neut % (Auto) 44.4 (42.0-72.0) % Lymph % (Auto) 38.2 (20-44) % [place] % (Auto) 10.8 (0.0-11.0) % Eos % (Auto) 5.4 (0.0-7.0) % Baso % (Auto) 0.6 (0.0-3.0) % Neut # (Auto) 2.30 (1.7-7.0) K/uL Lymph # (Auto) 1.98 (0.90-2.90) K/uL [place] # (Auto) 0.60 (0.00-0.90) K/UL Eos # (Auto) 0.28 (0.00-0.50) K/uL Baso # (Auto) 0.03 (0.00-0.30) K/uL Abs Immat Gran (auto) 0.03 (0.00-0.30) K/uL Imm/Tot Granulo (auto) 0.6 % ESR 12 (2-20) mm/hr Sodium 139 (135-149) mmol/L Potassium 3.9 (3.6-5.1) mmol/L Chloride 104 (96-114) mmol/L Carbon Dioxide 27 (20-32) mmol/L Anion Gap 8 (7-15) mEq/L BUN 13 (7-30) mg/dL Creatinine 0.8 (0.5-1.5) mg/dL Estimated Creat Clear 56.00 Estimated GFR 83 ml/min Glucose 95 (60-115) mg/dL Lactate 1.7 (0.5-1.9) mmol/L Calcium 9.5 (8.4-10.6) mg/dL C-Reactive Protein < 0.5 L (0.5-1.0) mg/dL Urine Color Yellow (Yellow) Urine Appearance Clear (Clear) Urine pH 6.0 (5.0-8.5) Ur Specific [place] 1.025 (1.000-1.030) Urine Protein Negative (Negative) Urine Glucose (UA) Negative (Negative) Urine Ketones Trace A (Negative) Urine Blood Negative (Negative) Urine Nitrite Negative (Negative) Urine Bilirubin Negative (Negative) Urine Urobilinogen 0.2 (0.2-1.0) Ur Leukocyte Esterase Negative (Negative) Urine RBC 2-5 A (0-2) Urine WBC 5-10 A (0-5) Ur Squamous Epith Cells Few (None-Few) Urine Bacteria Few A (None) Imaging Data CT scan - abdomen: Attestation: I have reviewed the pertinent imaging results. Radiologist's impression: Outpatient CT scan done yesterday 02/08/2025. We called Radiology to get results of the scan today in the ER. IMPRESSION: 1. No CT findings to explain the patient`s vaginal bleeding. 2. Destructive changes at the right sacroiliac joint with adjacent sclerosis, erosions and expansion of the right piriformis and iliopsoas musculature consistent with septic arthritis, osteomyelitis and myositis. Compared to the CT scan of 1 month prior, inflammation surrounding the right sacroiliac joint is mildly reduced. 3. Colonic diverticulosis status post distal sigmoid surgery. Discharge Plan Discharge Clinical Impression: Abdominal pain, LLQ, UTI (urinary tract infection), Septic arthritis of sacroiliac joint, Psoas abscess, right Patient Disposition: Home, Self-Care Instructions: Urinary Tract Infection in Women (ED), Urinary Tract Infection in Women (DC), Abdominal Pain (ED) Additional Instructions: As we discussed, at this point the cause of your new pain in your left lower quadrant and left hip is unclear. We do not see any signs of bad infection or inflammation of your colon or any perforation or abscess or blockage. We do not see any sign of any left hip or pelvic fracture. Overall on the CT scan it looks like your previous right SI joint infection and right psoas muscle infection is slowly improving. Her laboratory workup looks reassuring today. We have spoken with your infectious disease team from [facility]. They feel that it is safe for you to continue your antibiotic (doxycycline) at home. Your urinalysis is weakly abnormal, so we will put you on a 2nd antibiotic called ciprofloxacin to treat for possible bladder infection. However, I am not convinced that the bladder is the sole cause for all of the pain on your left side. Monitor your condition carefully. If her not dramatically improved within 48 hours, please see your doctors or come back to the ER. If you get worse, come back to the ER right away. Be careful with oxycodone because it can cause dizziness, drowsiness, constipation, and can be addictive. Prescriptions: New ciprofloxacin HCl [Cipro] 500 mg tablet 500 mg PO BID Qty: 10 0RF oxycodone 5 mg capsule 5 mg PO Q6H PRN (Reason: pain) Qty: 10 0RF oxycodone 5 mg tablet 5 mg PO Q6H PRN (Reason: pain) Qty: 10 0RF No Action aspirin 81 mg tablet,delayed release (DR/EC) 81 mg PO QDAY fluconazole 150 mg tablet 150 mg PO Q3D Qty: 2 0RF coenzyme Q10 [Co Q-10] 30 mg capsule 30 mg PO QDAY multivitamin Tablet 1 tab PO QAM buspirone 5 mg tablet 5 mg PO BID Qty: 90 3RF clobetasol 0.05 % solution 1 applic topical BID Patient Comments: uses for 2 weeks and the done clobetasol 0.05 % ointment topical .ud hydrocortisone 2.5 % ointment topical .ud Patient Comments: APPLY ON EARS TWO TIMES A DAY FOR UP TO 2 WEEKS AT A TIME. THEN TAKE 2 WEEKS OFF. REPEAT NEEDED FOR FLARES. ketoconazole 2 % shampoo topical DAILY clobetasol 0.05 % cream 1 applic topical QDAY Vitron-C 65 mg iron- 125 mg tablet,delayed release (DR/EC) 1 tab PO QDAY cholecalciferol (vitamin D3) 1,250 mcg (50,000 unit) capsule 1,250 mcg PO DAILY doxycycline hyclate 100 mg capsule 100 mg PO BID fluconazole 150 mg tablet 150 mg PO Q3D Qty: 2 0RF albuterol sulfate 2.5 mg /3 mL (0.083 %) solution for nebulization 2.5 mg inhalation Q4H PRN (Reason: shortness of breath or wheezing) Qty: 90 0RF fluoxetine 40 mg capsule 40 mg PO QAM Qty: 90 0RF bupropion HCl [Wellbutrin XL] 300 mg tablet extended release 24 hr 300 mg PO QAM Qty: 90 0RF omeprazole 40 mg capsule,delayed release(DR/EC) 40 mg PO DAILY Qty: 90 0RF fluconazole 150 mg tablet 150 mg PO Q3D Qty: 2 0RF lisinopril 20 mg tablet 20 mg PO DAILY Qty: 90 0RF rosuvastatin 10 mg tablet 10 mg PO QHS Qty: 90 0RF albuterol sulfate 90 mcg/actuation HFA aerosol inhaler 2 inh inhalation Q4-6H PRN (Reason: bronchospasm) Qty: 8.5 0RF Follow Up/Referrals: Shayna Feliciano MD [Primary Care Provider, Family Practice] Stand Alone Forms: [employer] Info Instructions
[2025-02-09 14:42] LABS: Appearance Urine Clear (Clear)
[2025-02-09 14:52] LABS: Lactate* 1.7 mmol/L (0.5-1.9)
[2025-02-09 14:58] LABS: Hematocrit 39.5 % (33.0-51.0); Hemoglobin* 12.5 gm/dL (12.0-16.0); Immature Granulocytes Abs Auto 0.03 K/uL (0.00-0.30); Immature Granulocytes Pct Auto 0.6 %; Lymphocytes Absolute Auto 1.98 K/uL (0.90-2.90); Mean Corpuscular HGB Conc 32 gm/dL (32-36); Mean Corpuscular Hemoglobin 29 pg (26-34); Mean Corpuscular Volume 91 fL (80-100); RDW Coefficient of Variation % 14.7 % (11.5-15.5); Red Blood Count 4.36 m/uL (4.00-5.20); White Blood Count* 5.18 K/uL (4.50-11.00)
[2025-02-09 14:59] LABS: Slide Review Reflex No
[2025-02-09 15:21] LABS: Chloride* 104 mmol/L (96-114)
[2025-02-09 15:22] LABS: Potassium* 3.9 mmol/L (3.6-5.1); Sodium* 139 mmol/L (135-149)
[2025-02-09 15:25] LABS: Anion Gap 8 mEq/L (7-15); Blood Urea Nitrogen* 13 mg/dL (7-30); Calcium* 9.5 mg/dL (8.4-10.6); Carbon Dioxide* 27 mmol/L (20-32); Creatinine* 0.8 mg/dL (0.5-1.5); Est. Creatinine Clearance* 56.00; Estimated Glomerular Filt Rate 83 ml/min; Glucose* 95 mg/dL (60-115)
[2025-02-09 16:34] LABS: Erythrocyte SedimentationRate* 12 mm/hr (2-20)
[2025-02-09 17:04] VITALS: BP 150/85; PULSE 72; RESP 14; O2SAT 96
== END 2025-02-09 17:11 | disposition home or self-care (01) ==
PROVIDERS: Emergency Provider Emergency Medicine; PCP Family Medicine
DX: N39.0 Urinary tract infection, site not specified (principal); M00.88 Arthritis due to other bacteria, vertebrae; K68.12 Psoas muscle abscess
CPT/HCPCS: 36415; 80048; 81001; 83605; 85025; 85651; 86140; 87040; 87086; 99282; 99283; J7030

== ENCOUNTER 2025-04-16 12:35 | Outpatient (CLI) | payer BC, SELFPAY | END 2025-04-16 12:36 | disposition home or self-care (01) | LOC: NFLDREF 04-18 19:33 | PROVIDERS: PCP Family Medicine; Referring Provider Family Medicine; Visit Provider Family Medicine | DX: L98.9 Disorder of the skin and subcutaneous tissue, unspecified (principal); G47.33 Obstructive sleep apnea (adult) (pediatric); J44.9 Chronic obstructive pulmonary disease, unspecified; B35.9 Dermatophytosis, unspecified; E11.9 Type 2 diabetes mellitus without complications | CPT/HCPCS: 80053; 80061; 82043; 82306; 82570; 82607 ==

== ENCOUNTER 2025-06-12 07:58 | Outpatient (CLI) | payer BC, SELFPAY ==
--- NOTE | 2025-06-12 09:15 | CRLHL7_ITS ---
For Patients: As a result of the Cures Act, medical imaging exams and procedure reports are released immediately into your electronic medical record. You may view this report before your referring provider. If you have questions, please contact your health care provider. CLINICAL HISTORY: Personal history of tobacco use and abnormal findings on diagnostic imaging of heart. TECHNIQUE: The carotid circulations and the vertebral arteries in the neck were examined with hill-scale ultrasound, color-flow and Doppler spectral analysis. Degrees of stenosis were determined using SRU 2002 Consensus Panel Criteria. FINDINGS: Sonographic images demonstrate mild bilateral atherosclerotic plaque formation without suspicious soft tissue mass. There was antegrade blood flow demonstrated within the vertebral arteries and the subclavian arteries demonstrated a normal triphasic waveform. The spectral Doppler tracings of the common carotid, internal and external carotid arteries demonstrate mild abnormal turbulence/spectral broadening within the distal left ICA. There was mild significant elevation of peak systolic blood flow within the distal left ICA measuring 135 cm/sec which would indicate a hemodynamically-significant stenosis by SRU criteria. The ICA/CCA peak systolic velocity ratio measures 0.8 on the right and 2.1 on the left. IMPRESSION: 50-69 percent stenosis of the distal left ICA. Less than 50 percent stenosis of the right ICA. Dictated by Christopher Laceky MD @ 06/12/2025 11:11:11 AM (Electronically Signed)
--- NOTE | 2025-06-12 10:00 | CRLHL7_ITS ---
For Patients: As a result of the Century Cures Act, medical imaging exams and procedure reports are released immediately into your electronic medical record. You may view this report before your referring provider. If you have questions, please contact your health care provider. INDICATION: Lung cancer screening. History of smoking. High risk patient with greater than pack-year smoking history. TECHNIQUE: Low-dose lung cancer screening non-contrast CT chest. Dose reduction techniques were used. COMPARISON: None. FINDINGS: NODULES: 2 millimeter nodule right upper lobe, . LUNGS AND PLEURA: Mild areas of scarring. MEDIASTINUM: No adenopathy. CORONARY ARTERY CALCIFICATION: Moderate. LIMITED UPPER ABDOMEN: Gallbladder absent. MUSCULOSKELETAL: Bridging osteophyte formation. Unchanged sclerotic focus T11 compared to CT abdomen 02/08/2025. IMPRESSION: Negative for lung cancer screening purposes. LUNG-RADS CATEGORY: 2: Benign. RADIOLOGIST RECOMMENDATION: Continue annual screening, if eligible, with low-dose CT chest in 12 months. Please note that all CT scans at this facility use dose modulation, iterative reconstruction, and/or weight-based dosing when appropriate to reduce radiation dose to as low as reasonably achievable. Dictated by Christopher Lackey MD @ 06/12/2025 10:53:33 AM (Electronically Signed)
== END 2025-06-12 07:59 | disposition home or self-care (01) ==
PROVIDERS: PCP Family Medicine; Visit Provider Family Medicine
DX: Z12.2 Encounter for screening for malignant neoplasm of respiratory organs (principal); I65.23 Occlusion and stenosis of bilateral carotid arteries; R93.1 Abnormal findings on diagnostic imaging of heart and coronary circulation; Z72.0 Tobacco use
CPT/HCPCS: 71271; 93880

== ENCOUNTER 2025-06-19 14:25 | Outpatient (CLI) | payer BC, SELFPAY ==
[2025-06-19 18:15] LABS: D Dimer Quantitative* 0.47 ug/ml (0.00-0.50)
== END 2025-06-19 14:26 | disposition home or self-care (01) ==
LOC: FRMREF 14:28
PROVIDERS: PCP Family Medicine; Visit Provider Family Medicine
DX: R60.0 Localized edema (principal); M79.89 Other specified soft tissue disorders
CPT/HCPCS: 85379

== ENCOUNTER 2025-06-19 16:32 | Outpatient (CLI) | payer BC, SELFPAY ==
--- NOTE | 2025-06-19 17:30 | CRLHL7_ITS ---
For Patients: As a result of the Century Cures Act, medical imaging exams and procedure reports are released immediately into your electronic medical record. You may view this report before your referring provider. If you have questions, please contact your health care provider. INDICATION: Medial left ankle pain TECHNIQUE: Ultrasound venous duplex lower left extremity. Compression venous exam was performed using hill-scale, color Doppler, and spectral Doppler analysis. COMPARISON: None. FINDINGS: Deep veins: Sonographic imaging demonstrates the left common femoral, deep femoral, superficial femoral, popliteal, posterior tibial and the contralateral right common femoral veins to be fully compressible with normal color Doppler blood flow. Superficial veins: Greater saphenous vein is fully compressible. No popliteal cyst. There is an apparent complex fluid collection along the medial aspect of the ankle measuring 5.7 x 1.8 x 1.7 centimeters. IMPRESSION: 1. No evidence of venous thrombosis in the examined veins. 2. Nonspecific apparent complex fluid collection along the medial left ankle. Dictated by Katia Dickinson MD @ 06/19/2025 5:50:21 PM (Electronically Signed)
== END 2025-06-19 16:33 | disposition home or self-care (01) ==
LOC: US 16:33
PROVIDERS: PCP Family Medicine; Visit Provider Family Medicine
DX: M25.572 Pain in left ankle and joints of left foot (principal); M79.89 Other specified soft tissue disorders; R60.0 Localized edema
CPT/HCPCS: 93971